=== PATIENT | female | born 1995 | race Caucasian/White ===

== ENCOUNTER 2019-06-05 12:59 | Inpatient (IN) | payer OTHER, SELFPAY ==
[2019-06-05 14:31] LABS: Add Manual Diff / Slide Review NO; Basophils Absolute Auto 0 /uL (0-100); Basophils Percent Auto 0.4 % (0-2); Eosinophils Absolute Auto 0 /uL (0-450); Eosinophils Percent Auto 0.2 % (2-4); Hematocrit 39.7 % (36-46); Lymphocytes Absolute Auto 2000 /uL (1100-4500); Lymphocytes Percent Auto 20.8 % (25-40); Mean Corpuscular HGB Conc 35.3 % (30-36); Mean Corpuscular Hemoglobin 29.7 PG (26-34); Mean Corpuscular Volume 84.1 fL (80-100); Monocytes Absolute Auto 600 /uL (0-900); Monocytes Percent Auto 6.6 % (3-14); Neutrophils Absolute Auto 6900 /uL (1500-7000); Platelet Count 316 X10^3/uL (150-400); Red Blood Cell Count 4.72 X10^6/uL (4.0-5.2); White Blood Cell Count 9.6 X10^3/uL (4.5-11.0)
[2019-06-05 14:44] LABS: Aspartate Aminotransferase 123 IU/L (14-36); Blood Urea Nitrogen 14 mg/dL (7-17); Estimated Glomerular Filt Rate > 60.0 mL/min (>60); Uric Acid 6.8 mg/dL (2.5-6.2)
[2019-06-05 15:03] LABS: RBC Urine None Seen (0-5/HPF)
[2019-06-05 15:05] LABS: Appearance Urine UA SL CLOUDY; Bilirubin Urine UA NEGATIVE (NEGATIVE); Color Urine UA YELLOW; Glucose Urine UA NEGATIVE (Negative); Ketones Urine UA NEGATIVE (NEGATIVE); Leukocyte Esterase Urine UA 1+ (NEGATIVE); Nitrite Urine UA NEGATIVE (Negative); Occult Blood Urine UA NEGATIVE (Negative); Protein Urine UA TRACE (Negative); Specific Gravity Urine UA <=1.005 (1.000-1.035); Urobilinogen Urine UA 0.2 E.U./dL (0.2); pH Urine UA 6.5 (4.5-8.0)
[2019-06-05 15:17] LABS: Squamous Epithelial Cell Urine 1-5 /HPF (0-5/HPF); WBC Urine 5-10/HPF (0-5/HPF)
[2019-06-05 15:18] LABS: Amorphous Sediment Urine 1+; Bacteria Urine Many (>30); Culture Indicated Urine Specimen Cultured; Mucus Urine 1+ (Negative)
[2019-06-05 15:24] LABS: Creatinine Urine Random 101.8 mg/dL; Protein (Total) Urine Random 19 mg/dL (0-12); Protein Creatinine Ratio Urine 0.18 GRAM/24H
--- NOTE | 2019-06-05 16:01 | PM.OBHP.1 ---
OB HPI Date/Time Date of admission: 06/05/19 Date Patient Seen: 06/05/19 Time Patient Seen: 14:45 History of Present Condition Chief complaint: Observation : 1 Para: 0 Estimated Date of Delivery: 06/26/19 Estimated Gestational Age (weeks): 37 Narrative: This patient is a 24-year-old at 37 weeks 0 days admitted for induction of labor for gestational hypertension. The patient presented to clinic today for a new OB visit to transfer care, and was found to have a blood pressure of 154/100. Patient reported otherwise feeling well, with no obstetrical complaints and no symptoms such as headache, visual changes, chest pain, right upper quadrant pain, or increased swelling. [place], and that ?they were watching it.? The patient has a complicated by GDM A1, which was well controlled per her log that she brought with her today. The patient reports that she had a growth ultrasound 1 week ago, with an EFW of 5 lb 10 oz. The patient denies any other complications. The patient reports that she has an uncomplicated medical history, explicitly denying any history of hypertension or diabetes. She denies any contributory surgical, gynecologic, or family history, and denies any family history on the FOB's side of the family. Indications Indication for induction OB: medical complication History of Present care: good care Dating criteria: other (Incomplete records) Ultrasounds: normal mid trimester US (Per patient) Obstetrical complications: gestational diabetes and gestational hypertension Evaluation Evaluation Baseline heart rate: 125 monitor accelerations: Present monitor decelerations: Absent Uterine Contraction Intensity: Mild Category of Tracing: I Cervical dilation (cm): 1 Cervical effacement (%): 50 station: -3 Laboratory results: Laboratory Tests 06/05/19 06/05/19 06/05/19 14:07 14:07 15:01 WBC 9.6 RBC 4.72 Hgb 14.0 Hct 39.7 MCV 84.1 MCH 29.7 MCHC 35.3 RDW 14.0 Plt Count 316 Neut % (Auto) 72.0 Lymph % (Auto) 20.8 L [place] % (Auto) 6.6 Eos % (Auto) 0.2 L Baso % (Auto) 0.4 Neut # (Auto) 6900 Lymph # (Auto) 2000 [place] # (Auto) 600 Eos # (Auto) 0 Baso # (Auto) 0 BUN 14 Creatinine 0.70 Estimated GFR > 60.0 BUN/Creatinine Ratio 20.0 Uric Acid 6.8 H AST 123 H Urine Color Yellow Urine Appearance Sl cloudy Urine pH 6.5 Ur Specific Alpha <=1.005 Urine Protein Trace H Urine Glucose (UA) Negative Urine Ketones Negative Urine Occult Blood Negative Urine Nitrate Negative Urine Bilirubin Negative Urine Urobilinogen 0.2 Ur Leukocyte Esterase 1+ H Urine RBC None seen Urine WBC 5-10/hpf H Ur Squamous Epith Cells 1-5 /hpf Amorphous Sediment 1+ Urine Bacteria Many (>30) H Urine Mucus 1+ H Ur Culture Indicated? Specimen cultured U Random Total Protein Urine Creatinine Protein/Creatinin Ratio 06/05/19 15:01 WBC RBC Hgb Hct MCV MCH MCHC RDW Plt Count Neut % (Auto) Lymph % (Auto) [place] % (Auto) Eos % (Auto) Baso % (Auto) Neut # (Auto) Lymph # (Auto) [place] # (Auto) Eos # (Auto) Baso # (Auto) BUN Creatinine Estimated GFR BUN/Creatinine Ratio Uric Acid AST Urine Color Urine Appearance Urine pH Ur Specific Alpha Urine Protein Urine Glucose (UA) Urine Ketones Urine Occult Blood Urine Nitrate Urine Bilirubin Urine Urobilinogen Ur Leukocyte Esterase Urine RBC Urine WBC Ur Squamous Epith Cells Amorphous Sediment Urine Bacteria Urine Mucus Ur Culture Indicated? U Random Total Protein 19 H Urine Creatinine 101.8 Protein/Creatinin Ratio 0.18 PFSH Medical History Gestational diabetes mellitus (GDM) affecting first (Acute) Surgical History History of dental surgery (Acute ~2004) Family History Grandfather Cancer Grandmother Cervical cancer Lung cancer Grandfather Lung cancer Social History marital status: household members: spouse pets and animals: Yes (cat and aware) occupational status: unemployed current occupational exposures/hazards: No Smoking Status: Never smoker second hand exposure: No substance use type: does not use Meds Home Medications and Allergies Home Medications Medication Instructions Recorded Confirmed Type prenat.vits,taiwo,sau-ziyz-iefoa 1 tab PO DAILY 06/02/19 06/02/19 History Allergies Allergy/AdvReac Type Severity Reaction Status Date / Time No Known Drug Allergies Allergy Verified 05/28/19 11:07 Review of Systems Constitutional Constitutional: Reports system reviewed and no additional complaints, except as documented Cardiovascular Cardiovascular: Reports system reviewed; no additional complaints, except as documented Respiratory Respiratory: Reports system reviewed and no additional complaints, except as documented Gastrointestinal Gastrointestinal: Reports system reviewed and no additional complaints, except as documented Genitourinary Genitourinary: Reports system reviewed and no additional complaints, except as documented Musculoskeletal Musculoskeletal: Reports system reviewed; no additional complaints, except as documented Neurologic Neurologic: Reports system reviewed and no additional complaints, except as documented Endocrine Endocrine: Reports system reviewed and no additional complaints, except as documented Exam Vital Signs (past 8 hours): 140-155/90-105, HR 100s, afebrile Const General: cooperative, healthy appearing and comfortable Resp Effort & Inspection: normal respiratory effort Auscultation: clear to auscultation bilaterally Cardio Rate: regular rate Rhythm: regular rhythm GI Palpation: soft and No tender External Female Exam: external appearance normal Extrem Right lower extremity: edema Details: 1+ Left lower extremity: edema Details: 1+ Objective Labs Result Diagrams: 06/05/19 14:07 06/05/19 14:07 Labs: Laboratory Results - last 24 hr 06/05/19 06/05/19 06/05/19 14:07 14:07 15:01 WBC 9.6 RBC 4.72 Hgb 14.0 Hct 39.7 MCV 84.1 MCH 29.7 MCHC 35.3 RDW 14.0 Plt Count 316 Neut % (Auto) 72.0 Lymph % (Auto) 20.8 L [place] % (Auto) 6.6 Eos % (Auto) 0.2 L Baso % (Auto) 0.4 Neut # (Auto) 6900 Lymph # (Auto) 2000 [place] # (Auto) 600 Eos # (Auto) 0 Baso # (Auto) 0 BUN 14 Creatinine 0.70 Estimated GFR > 60.0 BUN/Creatinine Ratio 20.0 Uric Acid 6.8 H AST 123 H Urine Color Yellow Urine Appearance Sl cloudy Urine pH 6.5 Ur Specific Alpha <=1.005 Urine Protein Trace H Urine Glucose (UA) Negative Urine Ketones Negative Urine Occult Blood Negative Urine Nitrate Negative Urine Bilirubin Negative Urine Urobilinogen 0.2 Ur Leukocyte Esterase 1+ H Urine RBC None seen Urine WBC 5-10/hpf H Ur Squamous Epith Cells 1-5 /hpf Amorphous Sediment 1+ Urine Bacteria Many (>30) H Urine Mucus 1+ H Ur Culture Indicated? Specimen cultured U Random Total Protein Urine Creatinine Protein/Creatinin Ratio 06/05/19 15:01 WBC RBC Hgb Hct MCV MCH MCHC RDW Plt Count Neut % (Auto) Lymph % (Auto) [place] % (Auto) Eos % (Auto) Baso % (Auto) Neut # (Auto) Lymph # (Auto) [place] # (Auto) Eos # (Auto) Baso # (Auto) BUN Creatinine Estimated GFR BUN/Creatinine Ratio Uric Acid AST Urine Color Urine Appearance Urine pH Ur Specific Alpha Urine Protein Urine Glucose (UA) Urine Ketones Urine Occult Blood Urine Nitrate Urine Bilirubin Urine Urobilinogen Ur Leukocyte Esterase Urine RBC Urine WBC Ur Squamous Epith Cells Amorphous Sediment Urine Bacteria Urine Mucus Ur Culture Indicated? U Random Total Protein 19 H Urine Creatinine 101.8 Protein/Creatinin Ratio 0.18 Assessment and Plan Assessment and Plan Assessment and Plan narrative: This patient is a 24-year-old at 37 weeks, presenting with a presentation consistent with gestational hypertension. Per ACOG guidelines, she will be induced for this. She has an unfavorable cervix and will be induced with vaginal Cytotec, with Pitocin to follow. Discussed with patient and spouse -vital signs q.1 hour -fingersticks q.4 hours while awake in till active labor, when they will become 1 hour -Hep-Lock IV -induction with vaginal Cytotec per protocol -continuous monitoring and toco -notify MD with any blood pressures over 160 systolic or 110 diastolic, category 2 tracing, or symptoms of preeclampsia.
[2019-06-05] MEDS: NIFEdipine 10 MG CAPSULE PO ×2 (17:17→23:39)
--- NOTE | 2019-06-05 17:52 | PM.OBPNLAB ---
Date/Time Date Patient Seen: 06/05/19 Time Patient Seen: 16:45 Pelvic Exam Dilation (cm): 1 Effacement (%): 50 station: -3 Comments: Patient with sustained severe range blood pressures with systolics over 160. Patient remained asymptomatic, has no IV obtained, 10 mg of immediate release p.o. nifedipine administered. Blood pressures resolved to 130-75 after 20 minutes. Will continue to closely monitor Q 15 minutes. S patient now risen for preeclampsia with severe features due to is seen severe blood pressures, patient will start magnesium therapy. Contractions Contraction intensity: Mild Status status: Category l Heart Rate Baseline: 125 Monitor Decelerations: Absent Monitor Variability: Moderate Assessment and Plan Assessment: induction ongoing
[2019-06-05] MEDS: LACTATED RINGERS 1,000 ML 100 ML IV (18:00)
[2019-06-05 18:07] LABS: Add Manual Diff / Slide Review NO; Basophils Absolute Auto 100 /uL (0-100); Basophils Percent Auto 0.6 % (0-2); Eosinophils Absolute Auto 0 /uL (0-450); Eosinophils Percent Auto 0.2 % (2-4); Hematocrit 39.6 % (36-46); Hemoglobin 13.7 g/dL (12.0-16.0); Lymphocytes Absolute Auto 2600 /uL (1100-4500); Lymphocytes Percent Auto 22.4 % (25-40); Mean Corpuscular HGB Conc 34.6 % (30-36); Mean Corpuscular Volume 83.9 fL (80-100); Monocytes Absolute Auto 600 /uL (0-900); Monocytes Percent Auto 5.3 % (3-14); Neutrophils Absolute Auto 8400 /uL (1500-7000); Neutrophils Percent Auto 71.5 % (50-75); Platelet Count 317 X10^3/uL (150-400); Red Blood Cell Count 4.72 X10^6/uL (4.0-5.2); Red Cell Distribution Width 13.9 % (11.6-14.8); White Blood Cell Count 11.8 X10^3/uL (4.5-11.0)
[2019-06-05] MEDS: MAGNESIUM SULFATE 4 GM/100 ML PIGGYBACK IV (19:16)
[2019-06-05] MEDS: miSOPROStoL 25 MCG TABLET VAG ×2 (19:39→23:39)
[2019-06-05] MEDS: MAGNESIUM SULFATE 20 GM/500 ML IV.SOLN IV (19:43)
[2019-06-05 21:18] VITALS: BP 154/95
[2019-06-05] MEDS: ZOLPIDEM 5 MG TABLET PO (23:39)
[2019-06-06] MEDS: LACTATED RINGERS 1,000 ML 100 ML IV ×3 (03:53→23:22)
[2019-06-06] MEDS: MAGNESIUM SULFATE 20 GM/500 ML IV.SOLN IV ×2 (06:35→16:52)
--- NOTE | 2019-06-06 07:43 | PM.OBPNLAB ---
Date/Time Date Patient Seen: 06/06/19 Time Patient Seen: 07:30 Pain Control Pain control: tolerating well Comments: Patient slept little overnight and says her head feels like I haven't slept but denies headache. Also denies abdominal pain, nausea or LE edema. Overnight she required nifedipine for persistent systolic BP>160 but pressures since have been reasonable. Received 2 of 3 doses of Cytotec overnight. Was having contractions which have ceased. Pelvic Exam Dilation (cm): 1 Effacement (%): 50 station: -3 Amniotic membrane status: Intact Contractions Monitor mode: External Contraction intensity: Mild Status status: Category l Heart Rate Baseline: 130 Monitor Accelerations: Present Monitor Decelerations: Absent Assessment and Plan Assessment: induction ongoing Plan: continuous present management Comments: 24 year old at 37+1 weeks with GDMA1 and pre-eclampsia with severe features now on magnesium. Blood pressures well controlled with prn nifedipine. Received 2 doses of Cytotec overnight. Prieto score of 6 this morning. Begin pitocin per protocol. Continue magnesium, BP monitoring and neuro checks.
[2019-06-06 08:05] LABS: Add Manual Diff / Slide Review NO; Basophils Absolute Auto 100 /uL (0-100); Basophils Percent Auto 0.5 % (0-2); Eosinophils Absolute Auto 0 /uL (0-450); Eosinophils Percent Auto 0.4 % (2-4); Hematocrit 40.1 % (36-46); Hemoglobin 14.2 g/dL (12.0-16.0); Lymphocytes Absolute Auto 3000 /uL (1100-4500); Lymphocytes Percent Auto 24.4 % (25-40); Mean Corpuscular HGB Conc 35.6 % (30-36); Mean Corpuscular Hemoglobin 29.5 PG (26-34); Mean Corpuscular Volume 83.1 fL (80-100); Monocytes Absolute Auto 700 /uL (0-900); Monocytes Percent Auto 5.9 % (3-14); Neutrophils Absolute Auto 8500 /uL (1500-7000); Neutrophils Percent Auto 68.8 % (50-75); Platelet Count 348 X10^3/uL (150-400); Red Blood Cell Count 4.82 X10^6/uL (4.0-5.2); White Blood Cell Count 12.4 X10^3/uL (4.5-11.0)
[2019-06-06 08:14] LABS: Alanine Aminotransferase 274 IU/L (<35); Albumin 4.1 g/dL (3.5-5.0); Albumin Globulin Ratio 1.2 (1.0-2.8); Alkaline Phosphatase 237 U/L (38-126); Aspartate Aminotransferase 163 IU/L (14-36); Bilirubin Total 1.5 mg/dL (0.2-1.3); Bilirubin Unconjugated 1.1 mg/dL (0.0-1.1); Globulin 3.4 g/dL (1.7-4.1); HEMOLYSIS < 15 (0-50); Total Protein 7.5 g/dL (6.3-8.2); Uric Acid 7.9 mg/dL (2.5-6.2)
[2019-06-06] MEDS: OXYTOCIN PREMIX 30 UNIT/500 ML PLAST..BAG IV (08:40)
[2019-06-06] MEDS: NIFEdipine 10 MG CAPSULE PO ×2 (09:08→20:54)
[2019-06-06 09:09] LABS: BUN Creatinine Ratio 14.3 (6-22); Blood Urea Nitrogen 10 mg/dL (7-17); Calcium 8.2 mg/dL (8.4-10.2); Carbon Dioxide 17 mmol/L (22-32); Chloride 105 mmol/L (98-107); Estimated Glomerular Filt Rate > 60.0 mL/min (>60); Glucose 87 mg/dL (70-100); HEMOLYSIS < 15 (0-50); Potassium 3.9 mmol/L (3.4-5.1); Sodium 136 mmol/L (137-145)
--- NOTE | 2019-06-06 11:31 | PM.OBPNLAB ---
Date/Time Date Patient Seen: 06/06/19 Time Patient Seen: 11:40 Pain Control Pain control: tolerating well Comments: No complaints other than feeling tired. Denies WARD, vision changes, RUQ pain or edema. Feeling contractions more, mostly crampy. Contractions Monitor mode: External Pitocin rate (mU/min): 9 Contraction frequency (min): 5 Contraction pattern: Regular Contraction intensity: Mild Status status: Category l Heart Rate Baseline: 130 Monitor Accelerations: Present Monitor Decelerations: Absent Monitor Variability: Moderate Assessment and Plan Assessment: induction ongoing Plan: continuous present management Comments: Increase pitocin per protocol. BP <160/110 and patient asymptomatic. Continue mag per protocol with neuro checks. Reflexes present on exam and good UOP. Repeat last this afternoon.
[2019-06-06 15:03] LABS: Add Manual Diff / Slide Review NO; Basophils Absolute Auto 100 /uL (0-100); Basophils Percent Auto 0.6 % (0-2); Eosinophils Absolute Auto 0 /uL (0-450); Eosinophils Percent Auto 0.1 % (2-4); Hematocrit 38.8 % (36-46); Hemoglobin 13.6 g/dL (12.0-16.0); Lymphocytes Absolute Auto 1700 /uL (1100-4500); Lymphocytes Percent Auto 14.5 % (25-40); Mean Corpuscular HGB Conc 35.1 % (30-36); Mean Corpuscular Hemoglobin 29.1 PG (26-34); Mean Corpuscular Volume 82.8 fL (80-100); Monocytes Absolute Auto 600 /uL (0-900); Neutrophils Absolute Auto 9100 /uL (1500-7000); Neutrophils Percent Auto 79.8 % (50-75); Platelet Count 335 X10^3/uL (150-400); Red Blood Cell Count 4.69 X10^6/uL (4.0-5.2); Red Cell Distribution Width 13.9 % (11.6-14.8); White Blood Cell Count 11.5 X10^3/uL (4.5-11.0)
[2019-06-06 15:12] LABS: Alanine Aminotransferase 262 IU/L (<35); Albumin Globulin Ratio 1.2 (1.0-2.8); Alkaline Phosphatase 251 U/L (38-126); Aspartate Aminotransferase 153 IU/L (14-36); Bilirubin Total 1.2 mg/dL (0.2-1.3); Blood Urea Nitrogen 9 mg/dL (7-17); Carbon Dioxide 20 mmol/L (22-32); Chloride 104 mmol/L (98-107); Estimated Glomerular Filt Rate > 60.0 mL/min (>60); Globulin 3.3 g/dL (1.7-4.1); Glucose 100 mg/dL (70-100); HEMOLYSIS < 15 (0-50); Potassium 4.2 mmol/L (3.4-5.1); Sodium 135 mmol/L (137-145); Total Protein 7.3 g/dL (6.3-8.2)
--- NOTE | 2019-06-06 16:16 | PM.OBPNLAB ---
Date/Time Date Patient Seen: 06/06/19 Time Patient Seen: 16:05 Pain Control Pain control: tolerating well Comments: Feeling crampy and contractions inconsistently. Denies WARD, vision changes, swelling or RUQ abdominal pain. Blood pressures have been <160<110. Pelvic Exam Dilation (cm): 3 Effacement (%): 75 station: -2 Amniotic membrane status: Ruptured (AROM clear fluid) Contractions Monitor mode: External Pitocin rate (mU/min): 18 Contraction frequency (min): 3 Contraction pattern: Regular Contraction intensity: Mild Status status: Category l Heart Rate Baseline: 120 Monitor Accelerations: Present Monitor Decelerations: Absent Monitor Variability: Moderate Assessment and Plan Assessment: induction ongoing Plan: continuous present management Comments: Blood pressures stable and not requiring nifedipine. No sign of magnesium toxicity. Patient asymptomatic. Labs stable, normal platelets, AST/ALT slightly improved though still abnormal. AROM with clear fluid. Continue pitocin per protocol. Epidural upon request.
[2019-06-06] MEDS: fentaNYL 100 MCG/2 ML INJ (19:25)
[2019-06-06] MEDS: FENT 2MCG/ML BUPIV 0.125% EPI 200 MCG/100 ML PLAST..BAG 13.5 MCG EPIDURAL (19:25)
--- NOTE | 2019-06-06 22:07 | P.PNOB_ITS ---
Date/Time Date Patient Seen: 06/06/19 Time Patient Seen: 21:30 Pain Control Pain control: tolerating well and epidural Comments: Feels cramping in lower abdomen. Denies WARD, vision changes, RUQ pain. Pelvic Exam Dilation (cm): 50 Effacement (%): 90 station: -1 Amniotic membrane status: Ruptured (AROM clear fluid) Contractions Monitor mode: External Pitocin rate (mU/min): 26 Contraction pattern: Regular Contraction intensity: Moderate Status status: Category l Heart Rate Baseline: 130 Monitor Accelerations: Present Monitor Decelerations: Absent Monitor Variability: Moderate Assessment and Plan Assessment: induction ongoing Comments: Unable to adequately monitor contractions on pitocin. Attempted IUPC placement with a moderate amount of blood upon insertion. IUPC removed and pitocin shut off. BP stable and FHT reassuring. Contacted Dr. Larsen, DEVELOPMENT TECHNOLOGIST for support and recommendations given the amount of bleeding. She will come in to evaluate.
[2019-06-07] MEDS: FENT 2MCG/ML BUPIV 0.125% EPI 200 MCG/100 ML PLAST..BAG 13.5 MCG EPIDURAL (01:48)
[2019-06-07] MEDS: NIFEdipine 10 MG CAPSULE PO (03:51)
--- NOTE | 2019-06-07 04:43 | PM.OBPNLAB ---
Date/Time Date Patient Seen: 06/07/19 Time Patient Seen: 04:15 Pain Control Comments: Patient complaining of pelvic pressure and the need to push. Rates pain as 10/10 and requests anesthesia. Pelvic Exam Dilation (cm): 9 Effacement (%): 100 station: 0 Amniotic membrane status: Ruptured Contractions Monitor mode: External Pitocin rate (mU/min): 19 Contraction frequency (min): 3 Contraction pattern: Regular Contraction intensity: Strong/Firm Intrauterine tone measurement: 150 Status status: Category l Heart Rate Baseline: 130 Monitor Accelerations: Present Monitor Decelerations: Absent Monitor Variability: Moderate Assessment and Plan Plan: continuous present management Comments: Anesthesia asked to bolus epidural. MVU range from 140-200 but patient has been making cervical change.
[2019-06-07 05:20] LABS: Add Manual Diff / Slide Review NO; Basophils Absolute Auto 100 /uL (0-100); Basophils Percent Auto 0.4 % (0-2); Eosinophils Absolute Auto 0 /uL (0-450); Hematocrit 35.6 % (36-46); Hemoglobin 12.5 g/dL (12.0-16.0); Lymphocytes Absolute Auto 1600 /uL (1100-4500); Lymphocytes Percent Auto 10.2 % (25-40); Mean Corpuscular Hemoglobin 29.3 PG (26-34); Mean Corpuscular Volume 83.9 fL (80-100); Monocytes Absolute Auto 800 /uL (0-900); Monocytes Percent Auto 5.1 % (3-14); Neutrophils Absolute Auto 13600 /uL (1500-7000); Neutrophils Percent Auto 84.3 % (50-75); Platelet Count 344 X10^3/uL (150-400); Red Blood Cell Count 4.25 X10^6/uL (4.0-5.2); Red Cell Distribution Width 14.3 % (11.6-14.8); White Blood Cell Count 16.2 X10^3/uL (4.5-11.0)
[2019-06-07 05:29] LABS: Magnesium 5.6 mg/dL (1.6-2.3)
[2019-06-07 05:31] LABS: Alanine Aminotransferase 275 IU/L (<35); Albumin 3.6 g/dL (3.5-5.0); Albumin Globulin Ratio 1.2 (1.0-2.8); Alkaline Phosphatase 220 U/L (38-126); Aspartate Aminotransferase 177 IU/L (14-36); BUN Creatinine Ratio 11.4 (6-22); Bilirubin Total 1.8 mg/dL (0.2-1.3); Blood Urea Nitrogen 8 mg/dL (7-17); Calcium 7.3 mg/dL (8.4-10.2); Carbon Dioxide 17 mmol/L (22-32); Chloride 105 mmol/L (98-107); Estimated Glomerular Filt Rate > 60.0 mL/min (>60); Glucose 108 mg/dL (70-100); HEMOLYSIS < 15 (0-50); Potassium 3.8 mmol/L (3.4-5.1); Sodium 135 mmol/L (137-145); Total Protein 6.6 g/dL (6.3-8.2)
[2019-06-07] MEDS: MAGNESIUM SULFATE 20 GM/500 ML IV.SOLN IV (07:18)
[2019-06-07] MEDS: LACTATED RINGERS 1,000 ML 100 ML IV (08:41)
[2019-06-07] MEDS: ONDANSETRON 4 MG/2 ML INJ IV (08:55)
--- NOTE | 2019-06-07 11:54 | PM.OBPRVD ---
 Events: Gestational Diabetes and Induced HTN Labor & Delivery Delivery date: 06/07/19 Intrapartal events: Severe Preeclampsia, Abnormal Presentation, Diabetes, Acceleration and Deceleration Cervical ripening method: per misoprostal protocol Induction method: per pitocin protocol Delivery augmentation: rupture of membranes Delivery monitor: external FHT and internal uterine Route of delivery: Episiotomy description: Right Mediolateral L&D Laceration Description: Perineal - 2nd Degree Delivery repair: vicryl Estimated blood loss (mL): 250 Anesthesia type: Epidural Narrative: This patient is a 24-year-old G1 now P1 001, who presented at 37 weeks 0 days 2 days ago for transfer of care from the [facility]. At the time of presentation, the patient reported a history of GDM A1, and that she had had elevated blood pressures for her 2 prior visits. In the office, her blood pressure was 154/100. She presented to Labor and delivery where she continued to have elevated blood pressures, had elevated liver function tests though on no other lab abnormalities, and eventually required immediate release nifedipine for control of sustained severe range blood pressures. She was started on magnesium and induced with vaginal Cytotec and Pitocin. She progressed to fully dilated, and was delivered of a healthy baby boy after a 3 hour 2nd stage. Loose nuchal cord was reduced at the perineum, and the delivery was notable for a compound right arm. An episiotomy was performed due to maternal exhaustion at the very end of the 2nd stage, to facilitate delivery. The delivery was otherwise obstetrically uncomplicated, and a second-degree episiotomy was repaired with 3 0 Vicryl in the usual fashion. The patient required intermittent dosing with p.o. nifedipine during her labor to control her blood pressures, and received her last dose during the 2nd stage. - postpatum BP 129/7, T 99.0, HR 140 [place] Baby 1: gender: Male Presentation: compound (Right arm) position: Left Occiput Transverse Placenta delivery description: Spontaneous cord vessel description: Nuchal Cord (Loose, x1) score (1 min): 7 score (5 min): 9 Narrative: weight 6#10 Plan for aftercare: - Magnesium therapy for 24 hours - q1 hr BPs - bedside commode vs. weldon catheter, pending evaluation of patient's toleration of magnesium sulfate - clear liquid diet for now, ADAT if no nausea with magnesium sulfate - Continue IV or IR antihypertensives for sustained severe range BPs. Notify provider immediately with BP >160 systolic, >110 diastolic, focal neurologic signs or symptoms, or other abnormal vital signs. - Avoid tylenol given elevated LFTs - Repeat CBC, CMP in AM - Routine delivery obstetric care
--- NOTE | 2019-06-07 18:10 | PM.OBPN.1 ---
Subjective - OB Subjective Patient comments: no complaints [place] baby status: doing well Narrative: This patient is a 24yo [id number] PPD#0 s/p after IOL for preeclampsia with severe features, now on 24 hrs pp Mg sulfate therapy and tolerating this well. Patient is diuresing and has downtrending BPs, requiring no further antihypertensives. Mg to continue until 11AM tomorrow. Date Patient Seen: 06/07/19 Time Patient Seen: 18:24 Interval history: Patient denies WARD, visual changes, abdominal pain, has ambulated, is diuresing, mild to moderate lochia. Exam Vital Signs (past 8 hours): most recent BPs: 120s/90s, HR 110s, T 36.9 Objective Labs Result Diagrams: 06/07/19 05:08 06/07/19 05:08 Labs: Laboratory Results - last 24 hr 06/06/19 06/07/19 06/07/19 23:30 05:08 05:08 WBC 16.2 H RBC 4.25 Hgb 12.5 Hct 35.6 L MCV 83.9 MCH 29.3 MCHC 35.0 RDW 14.3 Plt Count 344 Neut % (Auto) 84.3 H Lymph % (Auto) 10.2 L [place] % (Auto) 5.1 Eos % (Auto) 0.0 L Baso % (Auto) 0.4 Neut # (Auto) 69802 H Lymph # (Auto) 1600 [place] # (Auto) 800 Eos # (Auto) 0 Baso # (Auto) 100 Sodium 135 L Potassium 3.8 Chloride 105 Carbon Dioxide 17 L BUN 8 Creatinine 0.70 Estimated GFR > 60.0 BUN/Creatinine Ratio 11.4 Glucose 108 H Calcium 7.3 L Magnesium 7.0 H* Total Bilirubin 1.8 H AST 177 H ALT 275 H Alkaline Phosphatase 220 H Total Protein 6.6 Albumin 3.6 Globulin 3.0 Albumin/Globulin Ratio 1.2 06/07/19 05:08 WBC RBC Hgb Hct MCV MCH MCHC RDW Plt Count Neut % (Auto) Lymph % (Auto) [place] % (Auto) Eos % (Auto) Baso % (Auto) Neut # (Auto) Lymph # (Auto) [place] # (Auto) Eos # (Auto) Baso # (Auto) Sodium Potassium Chloride Carbon Dioxide BUN Creatinine Estimated GFR BUN/Creatinine Ratio Glucose Calcium Magnesium 5.6 H* Total Bilirubin AST ALT Alkaline Phosphatase Total Protein Albumin Globulin Albumin/Globulin Ratio Assessment & Plan Plan day: 0 Comments: Continue current management Time Spent With Patient Time: Total time spent is greater than 50% in coordination of care (as documented) at patient's floor/unit and/or counseling patient: Time with patient: less than 15 minutes
[2019-06-07] MEDS: KETOROLAC 30 MG/ML VIAL IV (19:26)
[2019-06-07 22:40] LABS: Magnesium 5.1 mg/dL (1.6-2.3)
[2019-06-07] MEDS: DOCUSATE 100 MG CAPSULE PO (22:52)
[2019-06-07] MEDS: LACTATED RINGERS 500 ML 21 ML IV (22:52)
[2019-06-08] MEDS: KETOROLAC 30 MG/ML VIAL IV ×3 (01:26→13:59)
[2019-06-08] MEDS: MAGNESIUM SULFATE 20 GM/500 ML IV.SOLN IV (03:25)
[2019-06-08 09:29] LABS: Alanine Aminotransferase 190 IU/L (<35); Albumin 3.1 g/dL (3.5-5.0); Albumin Globulin Ratio 1.1 (1.0-2.8); Alkaline Phosphatase 159 U/L (38-126); Aspartate Aminotransferase 121 IU/L (14-36); BUN Creatinine Ratio 15.7 (6-22); Bilirubin Total 0.8 mg/dL (0.2-1.3); Blood Urea Nitrogen 11 mg/dL (7-17); Calcium 7.1 mg/dL (8.4-10.2); Carbon Dioxide 24 mmol/L (22-32); Chloride 104 mmol/L (98-107); Estimated Glomerular Filt Rate > 60.0 mL/min (>60); Globulin 2.8 g/dL (1.7-4.1); Glucose 89 mg/dL (70-100); HEMOLYSIS < 15 (0-50); Potassium 3.7 mmol/L (3.4-5.1); Sodium 134 mmol/L (137-145); Total Protein 5.9 g/dL (6.3-8.2)
[2019-06-08 09:30] LABS: Aspartate Aminotransferase 125 IU/L (14-36); BUN Creatinine Ratio 17.1 (6-22); Blood Urea Nitrogen 12 mg/dL (7-17); Estimated Glomerular Filt Rate > 60.0 mL/min (>60); Uric Acid 8.3 mg/dL (2.5-6.2)
[2019-06-08] MEDS: DOCUSATE 100 MG CAPSULE PO ×2 (09:32→21:16)
--- NOTE | 2019-06-08 09:50 | PM.OBPN.1 ---
Subjective - OB Subjective Patient comments: no complaints [place] baby status: doing well [place] feeding status: exclusively breast feeding Date Patient Seen: 06/08/19 Time Patient Seen: 09:15 Interval history: Patient reports feeling well, denies WARD, visual changes, chest pain, abdominal pain, or any other complaints obstetrical or otherwise. Exam Vital Signs (past 8 hours): 130s-150/80s-90s, HR 80s, afebrile Const General: cooperative, healthy appearing and comfortable Orientation: alert, awake and oriented x3 Resp Effort & Inspection: normal respiratory effort Auscultation: clear to auscultation bilaterally Cardio Rate: regular rate Rhythm: regular rhythm GI Palpation: soft and No tender Other: Fundus firm, well below u Extrem Other: 1+ LE edema Objective Labs Result Diagrams: 06/08/19 08:49 06/08/19 08:19 Labs: Laboratory Results - last 24 hr 06/07/19 06/08/19 06/08/19 22:20 08:19 08:19 WBC RBC Hgb Hct MCV MCH MCHC RDW Plt Count Neut % (Auto) Lymph % (Auto) [facility] % (Auto) Eos % (Auto) Baso % (Auto) Neut # (Auto) Lymph # (Auto) [facility] # (Auto) Eos # (Auto) Baso # (Auto) Sodium 134 L Potassium 3.7 Chloride 104 Carbon Dioxide 24 BUN 11 12 Creatinine 0.70 0.70 Estimated GFR > 60.0 > 60.0 BUN/Creatinine Ratio 15.7 17.1 Glucose 89 Uric Acid 8.3 H Calcium 7.1 L Magnesium 5.1 H* Total Bilirubin 0.8 AST 121 H 125 H ALT 190 H Alkaline Phosphatase 159 H Total Protein 5.9 L Albumin 3.1 L Globulin 2.8 Albumin/Globulin Ratio 1.1 06/08/19 08:49 WBC 19.1 H RBC 3.71 L Hgb 11.0 L Hct 31.2 L MCV 84.2 MCH 29.6 MCHC 35.2 RDW 14.1 Plt Count 308 Neut % (Auto) 72.2 Lymph % (Auto) 20.[address] [facility] % (Auto) 7.0 Eos % (Auto) 0.2 L Baso % (Auto) 0.6 Neut # (Auto) 10458 H Lymph # (Auto) 38[address] [facility] # (Auto) 1300 H Eos # (Auto) 0 Baso # (Auto) 100 Sodium Potassium Chloride Carbon Dioxide BUN Creatinine Estimated GFR BUN/Creatinine Ratio Glucose Uric Acid Calcium Magnesium Total Bilirubin AST ALT Alkaline Phosphatase Total Protein Albumin Globulin Albumin/Globulin Ratio Assessment & Plan Plan day: 1 Comments: Patient to stop Mg at 11AM, may ambulate freely, have regular diet. Continue close monitoring of vitals q1 hr during day, q4 overnight. Otherwise routine pp care. Time Spent With Patient Time: Total time spent is greater than 50% in coordination of care (as documented) at patient's floor/unit and/or counseling patient: Time with patient: 15-24 minutes
[2019-06-08] MEDS: NIFEdipine 10 MG CAPSULE PO (21:16)
--- NOTE | 2019-06-09 08:11 | P.PNOB_ITS ---
Subjective - OB Subjective Patient comments: no complaints [place] baby status: doing well [place] feeding status: exclusively breast feeding Date Patient Seen: 06/09/19 Time Patient Seen: 08:00 Interval history: Patient reports feeling well, denies headache, visual changes, chest pain, abdominal pain. Voiding, ambulating without issue, passing flatus, mild to moderate vaginal bleeding. We discussed patient's elevated blood pressures overnight, that she would benefit from p.o. antihypertensives. Patient vocalized understanding. Additionally, patient has been noted to have fast to take out for most meals during rounds, and we discussed that preeclampsia increases her risk of cardiovascular disease and hypertension. We discussed lifestyle modifications such as diet and exercise. Exam Vital Signs (past 8 hours): 154/97, HR 90, RR 16, T 99.1F Const General: cooperative, healthy appearing and comfortable Nutritional Appearance: obese Orientation: alert, awake and oriented x3 Resp Effort & Inspection: normal respiratory effort Auscultation: clear to auscultation bilaterally Cardio Rate: regular rate Rhythm: regular rhythm GI Palpation: soft and No tender Other: fundus firm, well below u Other: perineal laceration repair inspection deferred due to ongoing peds assessment. Objective Labs Result Diagrams: 06/08/19 08:49 06/08/19 08:19 Labs: Laboratory Results - last 24 hr 06/08/19 06/08/19 06/08/19 08:19 08:19 08:19 WBC RBC Hgb Hct MCV MCH MCHC RDW Plt Count Neut % (Auto) Lymph % (Auto) [place] % (Auto) Eos % (Auto) Baso % (Auto) Neut # (Auto) Lymph # (Auto) [place] # (Auto) Eos # (Auto) Baso # (Auto) Sodium 134 L Potassium 3.7 Chloride 104 Carbon Dioxide 24 BUN 11 12 Creatinine 0.70 0.70 Estimated GFR > 60.0 > 60.0 BUN/Creatinine Ratio 15.7 17.1 Glucose 89 Uric Acid 8.3 H Calcium 7.1 L Magnesium 5.0 H* Total Bilirubin 0.8 AST 121 H 125 H ALT 190 H Alkaline Phosphatase 159 H Total Protein 5.9 L Albumin 3.1 L Globulin 2.8 Albumin/Globulin Ratio 1.1 06/08/19 08:49 WBC 19.1 H RBC 3.71 L Hgb 11.0 L Hct 31.2 L MCV 84.2 MCH 29.6 MCHC 35.2 RDW 14.1 Plt Count 308 Neut % (Auto) 72.2 Lymph % (Auto) 20.0 L [place] % (Auto) 7.0 Eos % (Auto) 0.2 L Baso % (Auto) 0.6 Neut # (Auto) 79279 H Lymph # (Auto) 3800 [place] # (Auto) 1300 H Eos # (Auto) 0 Baso # (Auto) 100 Sodium Potassium Chloride Carbon Dioxide BUN Creatinine Estimated GFR BUN/Creatinine Ratio Glucose Uric Acid Calcium Magnesium Total Bilirubin AST ALT Alkaline Phosphatase Total Protein Albumin Globulin Albumin/Globulin Ratio Assessment & Plan Plan day: 2 plan OB: routine care Time Spent With Patient Time: Total time spent is greater than 50% in coordination of care (as documented) at patient's floor/unit and/or counseling patient: Time with patient: less than 15 minutes
[2019-06-09] MEDS: NIFEdipine 30 MG TAB ER PO ×2 (09:54→13:44)
[2019-06-09] MEDS: IBUPROFEN 400 MG TABLET 800 MG PO (10:30)
[2019-06-09 17:04] LABS: Red Blood Cell Count 3.71 X10^6/uL (4.0-5.2); White Blood Cell Count 19.1 X10^3/uL (4.5-11.0)
[2019-06-09 17:05] LABS: Add Manual Diff / Slide Review NO; Basophils Absolute Auto 100 /uL (0-100); Basophils Percent Auto 0.6 % (0-2); Eosinophils Absolute Auto 0 /uL (0-450); Eosinophils Percent Auto 0.2 % (2-4); Hematocrit 31.2 % (36-46); Lymphocytes Absolute Auto 3800 /uL (1100-4500); Mean Corpuscular HGB Conc 35.2 % (30-36); Mean Corpuscular Hemoglobin 29.6 PG (26-34); Mean Corpuscular Volume 84.2 fL (80-100); Monocytes Absolute Auto 1300 /uL (0-900); Neutrophils Absolute Auto 13800 /uL (1500-7000); Neutrophils Percent Auto 72.2 % (50-75); Platelet Count 308 X10^3/uL (150-400); Red Cell Distribution Width 14.1 % (11.6-14.8)
[2019-06-09 18:00] VITALS: BP 149/103; PULSE 94
[2019-06-09] MEDS: LABETALOL 100 MG TABLET PO (18:00)
[2019-06-10] MEDS: IBUPROFEN 400 MG TABLET 800 MG PO ×2 (05:48→12:50)
[2019-06-10] MEDS: LABETALOL 100 MG TABLET PO (05:49)
[2019-06-10 07:53] LABS: Add Manual Diff / Slide Review NO; Basophils Absolute Auto 100 /uL (0-100); Basophils Percent Auto 0.5 % (0-2); Eosinophils Absolute Auto 300 /uL (0-450); Eosinophils Percent Auto 2.3 % (2-4); Hematocrit 28.9 % (36-46); Hemoglobin 9.9 g/dL (12.0-16.0); Lymphocytes Absolute Auto 3100 /uL (1100-4500); Lymphocytes Percent Auto 25.8 % (25-40); Mean Corpuscular HGB Conc 34.4 % (30-36); Mean Corpuscular Hemoglobin 29.3 PG (26-34); Monocytes Absolute Auto 700 /uL (0-900); Monocytes Percent Auto 5.7 % (3-14); Neutrophils Absolute Auto 7800 /uL (1500-7000); Neutrophils Percent Auto 65.7 % (50-75); Platelet Count 344 X10^3/uL (150-400); White Blood Cell Count 11.9 X10^3/uL (4.5-11.0)
[2019-06-10 08:13] LABS: Alanine Aminotransferase 261 IU/L (<35); Albumin 3.4 g/dL (3.5-5.0); Albumin Globulin Ratio 1.2 (1.0-2.8); Alkaline Phosphatase 170 U/L (38-126); Aspartate Aminotransferase 201 IU/L (14-36); BUN Creatinine Ratio 16.7 (6-22); Bilirubin Total 0.9 mg/dL (0.2-1.3); Blood Urea Nitrogen 10 mg/dL (7-17); Calcium 8.6 mg/dL (8.4-10.2); Carbon Dioxide 27 mmol/L (22-32); Chloride 102 mmol/L (98-107); Estimated Glomerular Filt Rate > 60.0 mL/min (>60); Globulin 2.8 g/dL (1.7-4.1); Glucose 89 mg/dL (70-100); HEMOLYSIS < 15 (0-50); Potassium 3.5 mmol/L (3.4-5.1); Sodium 137 mmol/L (137-145); Total Protein 6.2 g/dL (6.3-8.2)
[2019-06-10] MEDS: NIFEdipine 30 MG TAB ER 60 MG PO (09:25)
[2019-06-10] MEDS: DOCUSATE 100 MG CAPSULE PO (09:25)
--- NOTE | 2019-06-10 13:01 | PM.DS.1 ---
History of Present Illness History of Present Illness Chief complaint: Observation Narrative: Patient reports feeling well, denies headache, visual changes, chest pain, abdominal pain. Voiding, ambulating without issue, passing flatus, mild to moderate vaginal bleeding. We discussed patient's elevated blood pressures overnight, that she would benefit from p.o. antihypertensives. Patient vocalized understanding. Additionally, patient has been noted to have fast to take out for most meals during rounds, and we discussed that preeclampsia increases her risk of cardiovascular disease and hypertension. We discussed lifestyle modifications such as diet and exercise. Discharge Providers Provider Date of admission: 06/05/19 12:59 Discharge Date: 06/10/19 Primary care physician: Randy Sunshine MD Consults: 06/08/19 11:51 Consult to Weatherization Coordinator Routine Comment: Discharge provider: Kirstie Ruff MD Summary Hospital Course Discharge Diagnosis: , preeclampsia with severe features Hospital Course: This patient presented to clinic at 37+0 for transfer of care with a history of GDMA1, and was found to meet criteria for preeclampsia with severe features. She was treated with magnesium sulfate and induced with vaginal cytotec and pitocin, and delivered of a healthy baby boy without complication. Her blood pressures required intermittent intrapartum treatment per protocol, and she was started on PO antihypertensives as needed for blood pressure control. She developed blues in the hospital, and was discharged with close follow up of both blood pressure and mental health as an outpatient. Status at Discharge Cognitive/behavioral status at discharge: oriented Overall status at discharge: patient is progressing back to baseline Time Spent with Patient Time spent: Greater than 30 minutes Exam Vital Signs (past 8 hours): See exam from day of discharge progress note Objective Labs Result Diagrams: 06/10/19 07:32 06/10/19 07:32 Labs: Laboratory Results - last 24 hr 06/08/19 06/08/19 06/10/19 08:19 08:49 07:32 WBC 19.1 H Cancelled 11.9 H RBC 3.71 L Cancelled 3.40 L Hgb 11.0 L Cancelled 9.9 L Hct 31.2 L Cancelled 28.9 L MCV 84.2 Cancelled 85.0 MCH 29.6 Cancelled 29.3 MCHC 35.2 Cancelled 34.4 RDW 14.1 Cancelled 14.0 Plt Count 308 Cancelled 344 Neut % (Auto) 72.2 Cancelled 65.7 Lymph % (Auto) 20.0 L Cancelled 25.8 [place] % (Auto) 7.0 Cancelled 5.7 Eos % (Auto) 0.2 L Cancelled 2.3 Baso % (Auto) 0.6 Cancelled 0.5 Neut # (Auto) 97218 H Cancelled 7800 H Lymph # (Auto) 3800 Cancelled 3100 [place] # (Auto) 1300 H Cancelled 700 Eos # (Auto) 0 Cancelled 300 Baso # (Auto) 100 Cancelled 100 Sodium Potassium Chloride Carbon Dioxide BUN Creatinine Estimated GFR BUN/Creatinine Ratio Glucose Calcium Total Bilirubin AST ALT Alkaline Phosphatase Total Protein Albumin Globulin Albumin/Globulin Ratio 06/10/19 07:32 WBC RBC Hgb Hct MCV MCH MCHC RDW Plt Count Neut % (Auto) Lymph % (Auto) [place] % (Auto) Eos % (Auto) Baso % (Auto) Neut # (Auto) Lymph # (Auto) [place] # (Auto) Eos # (Auto) Baso # (Auto) Sodium 137 Potassium 3.5 Chloride 102 Carbon Dioxide 27 BUN 10 Creatinine 0.60 Estimated GFR > 60.0 BUN/Creatinine Ratio 16.7 Glucose 89 Calcium 8.6 Total Bilirubin 0.9 AST 201 H ALT 261 H Alkaline Phosphatase 170 H Total Protein 6.2 L Albumin 3.4 L Globulin 2.8 Albumin/Globulin Ratio 1.2 Discharge Plan Discharge Plan Patient Disposition: Home Discharge orders & Medications Prescriptions: New labetalol 100 mg tablet 100 mg PO BID Qty: 60 RF: 1 nifedipine 60 mg tablet extended release 60 mg PO DAILY Qty: 30 RF: 0 Continued prenat.vits,taiwo,acq-esvv-wolks Tablet 1 tab PO DAILY RF: 0 Follow up/Referrals: Randy Sunshine MD [Primary Care Provider] - Kirstie Ruff MD [Physician] - 1 Day (please f/u w/Dr. Ruff this Saturday, Jun 12 for a BP check at 3pm and again on Jul 08, 2019 at 11:30am) Diet/Activity/Treatments Diet: Regular and Low-sodium Activity: Nothing in the vagina for 6 weeks. If you develop increasing bleeding, fevers, chills, nausea, vomiting, headaches, or any other complaints, call or come to the ED. Visit Report/Discharge Packet Instructions: Pre-eclampsia, DI for Labor and Delivery, Vaginal Stand Alone Forms: Discharge: Care Discharge Data Primary Care Provider: Randy Sunshine Discharges patient from system. Discharge Date/Time: 06/10/19 15:19
--- NOTE | 2019-06-10 13:01 | PM.OBPN.1 ---
Subjective - OB Subjective Patient comments: pain well controlled, tolerating diet and flatus present baby status: other (under bili lights, otherwise doing well) feeding status: breast and bottle feeding Narrative: This patient is a 24-year-old now para 1 day 3 status post a vaginal delivery after induction of labor for preeclampsia with severe features. The patient's blood pressures have proven difficult to control, but are doing better on the current medication regimen. The patient is otherwise recovering from her preeclampsia well, diuresing, with significantly decreased edema and no symptoms. The patient is struggling with depression symptoms, though denies thoughts of self-harm of hurting her baby. Date Patient Seen: 06/10/19 Time Patient Seen: 12:30 Exam Vital Signs (past 8 hours): 124-149/81-93, HR 88 Const General: cooperative, healthy appearing, comfortable and in distress (tearful about baby under bili lights) Nutritional Appearance: overweight Resp Effort & Inspection: normal respiratory effort Auscultation: clear to auscultation bilaterally Cardio Rate: regular rate Rhythm: regular rhythm GI Palpation: soft and No tender Other: fundus firm, well below u Other: Laceration repair intact, no erythema, swelling, drainage Objective Labs Result Diagrams: 06/10/19 07:32 06/10/19 07:32 Labs: Laboratory Results - last 24 hr 06/08/19 06/08/19 06/10/19 08:19 08:49 07:32 WBC 19.1 H Cancelled 11.9 H RBC 3.71 L Cancelled 3.40 L Hgb 11.0 L Cancelled 9.9 L Hct 31.2 L Cancelled 28.9 L MCV 84.2 Cancelled 85.0 MCH 29.6 Cancelled 29.3 MCHC 35.2 Cancelled 34.4 RDW 14.1 Cancelled 14.0 Plt Count 308 Cancelled 344 Neut % (Auto) 72.2 Cancelled 65.7 Lymph % (Auto) 20.0 L Cancelled 25.8 [place] % (Auto) 7.0 Cancelled 5.7 Eos % (Auto) 0.2 L Cancelled 2.3 Baso % (Auto) 0.6 Cancelled 0.5 Neut # (Auto) 03831 H Cancelled 7800 H Lymph # (Auto) 3800 Cancelled 3100 [place] # (Auto) 1300 H Cancelled 700 Eos # (Auto) 0 Cancelled 300 Baso # (Auto) 100 Cancelled 100 Sodium Potassium Chloride Carbon Dioxide BUN Creatinine Estimated GFR BUN/Creatinine Ratio Glucose Calcium Total Bilirubin AST ALT Alkaline Phosphatase Total Protein Albumin Globulin Albumin/Globulin Ratio 06/10/19 07:32 WBC RBC Hgb Hct MCV MCH MCHC RDW Plt Count Neut % (Auto) Lymph % (Auto) [place] % (Auto) Eos % (Auto) Baso % (Auto) Neut # (Auto) Lymph # (Auto) [place] # (Auto) Eos # (Auto) Baso # (Auto) Sodium 137 Potassium 3.5 Chloride 102 Carbon Dioxide 27 BUN 10 Creatinine 0.60 Estimated GFR > 60.0 BUN/Creatinine Ratio 16.7 Glucose 89 Calcium 8.6 Total Bilirubin 0.9 AST 201 H ALT 261 H Alkaline Phosphatase 170 H Total Protein 6.2 L Albumin 3.4 L Globulin 2.8 Albumin/Globulin Ratio 1.2 Assessment & Plan Plan day: 3 plan OB: other Comments: This patient's blood pressure is now well controlled on 60 of extended release nifedipine daily and 100 mg of p.o. labetalol b.i.d. we discussed signs and symptoms of hypotension, should her preeclamptic process resolve and her medications need to be adjusted. The patient will call the clinic if the symptoms occur and present for urgent evaluation. She will be for blood pressure check in clinic in 2 days, and we discussed precautions that should prompt her to call or return. The patient has symptoms of baby blues though no thoughts of self-harm or hurting the baby. We discussed coping mechanisms, and the patient has been referred to Behavioral Health for urgent outpatient follow-up. The patient vocalized understanding of this, and will call if her symptoms worsen. Time Spent With Patient Time: Total time spent is greater than 50% in coordination of care (as documented) at patient's floor/unit and/or counseling patient: Time with patient: 25 - 35 minutes
== END 2019-06-10 15:19 | disposition home or self-care (01) | DRG 807 ==
PROVIDERS: Family Medicine; Admitting Provider Obstetrics & Gynecology; PCP General Practice; Visit Provider Obstetrics & Gynecology
DX: O13.4 Gestational [pregnancy-induced] hypertension without significant proteinuria, complicating childbirth (principal); O24.429 Gestational diabetes mellitus in childbirth, unspecified control; O90.6 Postpartum mood disturbance; Z37.0 Single live birth; Z3A.37 37 weeks gestation of pregnancy; O14.14 Severe pre-eclampsia complicating childbirth; O70.1 Second degree perineal laceration during delivery
CPT/HCPCS: 01967; 36415; 59050; 59410; 80048; 80053; 80076; 81001; 82570; 83735; 84156; 84450; 84550; 85025; 86850; 86900; 86901; 87086; G0379; J1885; J2405; J2590; J3010; J3475

== ENCOUNTER → 2019-06-05 13:03 | Outpatient (CLI) | payer OTHER, SELFPAY ==
[2019-06-06 10:28] LABS: Strep Grp B PCR NEG for Grp B Strep
== END ==
PROVIDERS: PCP General Practice; Visit Provider Obstetrics & Gynecology
DX: Z34.90 Encounter for supervision of normal pregnancy, unspecified, unspecified trimester (principal)
CPT/HCPCS: 87653

== ENCOUNTER 2019-07-27 21:04 | Emergency (ER) | payer OTHER, SELFPAY ==
--- NOTE | 2019-07-27 21:14 | DI.RAD.S_ITS ---
PROCEDURE: XR CHEST 1V INDICATIONS: chest pain TECHNIQUE: One view of the chest was acquired. COMPARISON: None. FINDINGS: Surgical changes and devices: None. Lungs and pleura: Lungs are clear. No pleural effusions or pneumothorax. Mediastinum: Mediastinal contours appear normal. Heart size is normal. Bones and chest wall: No suspicious bony lesions. Overlying soft tissues appear unremarkable. IMPRESSION: Portable chest within normal limits. Dictated by: Sunny Arce M.D. on 07/27/2019 at 21:47 Approved by: Sunny Arce M.D. on 07/27/2019 at 21:48
[2019-07-27 21:15] VITALS: BP 130/73; PULSE 125; PULSE 134; RESP 20; RESP 29; TEMP 37.1; O2SAT 99; BMI 30.4
--- NOTE | 2019-07-27 21:18 | ED.CHESTPAIN ---
HPI - Chest Pain General Chief Complaint: Chest Pain Stated Complaint: chest pain Time Seen by Provider: 07/27/19 21:18 Source: patient and family Mode of arrival: Ambulatory Limitations: no limitations History of Present Illness HPI narrative: The patient presents with chest pain for 3 days. The pain is central sternal does not radiate. She has no associated dyspnea, weakness or dizziness. She has minimal, occasional cough. She has no hemoptysis. She is 7 weeks . She is on nifedipine and labetalol for hypertension , she developed preeclampsia during the . She has no prior history of cardiac or respiratory problems. She is a nonsmoker. She denies orthopnea. She has no leg swelling or pain. She denies abdominal discomfort. Her oral intake is normal. She is tachycardic, and nearly tearful during my evaluation. She has a history anxiety, she is not currently taking anxiety medications. She does see a psychiatrist. She later confirms she is concerned about the diagnosis of hypertension. Related Data Previous Rx's Medication Instructions Recorded labetalol 100 mg PO BID #60 tab 06/10/19 nifedipine 60 mg PO DAILY #30 tab 06/10/19 Allergies Allergy/AdvReac Type Severity Reaction Status Date / Time No Known Drug Allergies Allergy Verified 07/17/19 15:37 Review of Systems Review of Systems ROS Unobtainable: All systems reviewed & are unremarkable except as noted in HPI and below Constitutional Constitutional: Denies chills, Denies fatigue, Denies fever(s), Denies lethargy and Denies weakness Eyes Eyes: Denies change in vision ENT Ears, Nose, Mouth, and Throat: Denies vertigo, Denies dizziness and Denies sore throat Cardiovascular Cardiovascular: Reports chest pain, Denies diaphoresis, Denies syncope, Denies pedal edema, Denies lightheadedness and Denies dyspnea Respiratory Respiratory: Denies chest congestion, Denies cough and Denies dyspnea Gastrointestinal Gastrointestinal: Denies abdominal pain, Denies change in bowel habits, Denies diarrhea, Denies nausea and Denies vomiting Genitourinary Genitourinary: Denies hematuria, Denies dysuria and Denies flank pain Musculoskeletal Musculoskeletal: Denies back pain, Denies muscle weakness, Denies numbness and Denies tingling Integumentary/Breasts Skin/Breast: Denies erythema, Denies rash and Denies wounds Neurologic Neurologic: Denies confusion, Denies vertigo, Denies dizziness, Denies syncope, Denies numbness, Denies tingling and Denies weakness Psychiatric Psychiatric: Reports anxiety, Denies confusion, Denies depression and Denies suicidal ideation Endocrine Endocrine: Denies fatigue and Denies flushing Hematologic/Lymphatic Hematologic/Lymphatic: Denies easy bruising Patient History Medical History (Updated 07/27/19 @ 23:08 by Mateo Rubin MD) Anxiety (Acute) Gestational diabetes mellitus (GDM) affecting first (Acute) Hypertension (Acute) Surgical History History of dental surgery (Acute ~2005) Family History Grandfather Cancer Grandmother Cervical cancer Lung cancer Grandfather Lung cancer Social History marital status: household members: spouse pets and animals: Yes (cat and aware) occupational status: unemployed current occupational exposures/hazards: No Smoking Status: Never smoker second hand exposure: No substance use type: does not use Smoking Status: Never smoker Substance Use Type: does not use Exam Initial Vital Signs Initial Vital Signs: Vital Signs Temperature 98.8 F 07/27/19 21:15 Pulse Rate 125 H 07/27/19 21:15 Respiratory Rate 20 07/27/19 21:15 Blood Pressure 130/73 07/27/19 21:15 Pulse Oximetry 99 07/27/19 21:15 Const General: cooperative, well developed and anxious Nutritional Appearance: well nourished [facility] Mouth: oral mucosae normal Eyes Conjunctivae: conjunctivae normal Pupils: PERRL EOM: EOM intact bilaterally Neck Neck: No lymphadenopathy and No JVD Resp Auscultation: clear to auscultation bilaterally Cardio Rate: tachycardic Rhythm: regular rhythm Heart Sounds: S1 normal, S2 normal, no click, no gallops and no murmurs GI Inspection: non-distended Palpation: soft, no hepatosplenomegaly, No guarding, No pulsatile mass and No tender Auscultation: normal bowel sounds Back/Spine/Pelvis Back: No CVA tenderness Skin Lesions: no lesions Rashes: no rashes Neuro General: alert, oriented x3, gait normal and no focal motor deficits Speech: speech normal Extrem General: full ROM, no pedal edema and no calf tenderness Course Course Course Narrative: The patient was tachycardic upon arrival at a rate of 120. She was obviously anxious upon arrival. I gave Ativan, her heart rate dropped to 80s. Chest pain anxiety resolved. She has a pre-existing history of anxiety, prior to the current delivery, and prior to the diagnosis with hypertension. She feels comfortable with her at home. She feels she is getting adequate sleep. Her provides great support. She has no suicidal thought. She is advised follow-up with her psychiatrist a discuss management anxiety. Orders Ordered: ED Orders 07/27/19 21:14 XR chest 1V Stat EKG-12 Lead Stat 07/27/19 21:26 Complete Blood Count AUTO DIFF Stat Comprehensive Metabolic Panel Stat D Dimer Stat Lipase Stat Partial Thromboplastin Time Stat Prothrombin Time INR Stat TSH [Thyroid Stimulating Hormone] Stat Troponin & CK Cardiac Panel Stat Discontinued Medications Lorazepam (Ativan) 0.5 mg PO NOW ONE Stop: 07/27/19 21:19 Last Admin: 07/27/19 21:41 Dose: 0.5 mg Documented by: GREGORY Vital Signs Vital signs: Vital Signs - 8 hr 07/27/19 21:15 07/27/19 22:33 Temperature 98.8 F Pulse Rate 134 H 93 H Respiratory Rate 29 H 21 Blood Pressure 130/73 Blood Pressure [Left Arm] 130/73 113/64 Pulse Oximetry 99 98 MDM - Chest Pain Lab Data Result diagrams: 07/27/19 21:26 07/27/19 21:26 Labs: Lab Results 07/27/19 07/27/19 07/27/19 Range/Units 21:26 21:26 21:26 WBC 11.0 (4.5-11.0) X10^3/uL RBC 4.76 (4.0-5.2) X10^6/uL Hgb 13.0 (12.0-16.0) g/dL Hct 37.9 (36-46) % MCV 79.6 L (80-100) fL MCH 27.2 (26-34) PG MCHC 34.2 (30-36) % RDW 13.2 (11.6-14.8) % Plt Count 464 H (150-400) X10^3/uL Neut % (Auto) 64.5 (50-75) % Lymph % (Auto) 26.8 (25-40) % [place] % (Auto) 6.7 (3-14) % Eos % (Auto) 1.2 L (2-4) % Baso % (Auto) 0.8 (0-2) % Neut # (Auto) 7100 H (8035-0180) /uL Lymph # (Auto) 2900 (1251-3123) /uL [place] # (Auto) 700 (0-900) /uL Eos # (Auto) 100 (0-450) /uL Baso # (Auto) 100 (0-100) /uL PT 12.9 H (10.1-12.7) SECONDS INR 1.1 (0.9-1.3) APTT 39 H (26.4-36.2) SECONDS D-Dimer (<230) ng/mL Sodium 140 (137-145) mmol/L Potassium 3.6 (3.4-5.1) mmol/L Chloride 102 (98-107) mmol/L Carbon Dioxide 26 (22-32) mmol/L BUN 14 (7-17) mg/dL Creatinine 0.80 (0.52-1.04) mg/dL Estimated GFR > 60.0 (>60) mL/min BUN/Creatinine Ratio 17.5 (6-22) Glucose 114 H (70-100) mg/dL Calcium 10.0 (8.4-10.2) mg/dL Total Bilirubin 1.3 (0.2-1.3) mg/dL AST 21 (14-36) IU/L ALT 15 (<35) IU/L Alkaline Phosphatase 68 (38-126) U/L Total Creatine Kinase 67 (30-135) U/L CK-MB (CK-2) TNP CK-MB (CK-2) Rel Index TNP Troponin I < 0.012 (0.01-0.034) ng/mL Total Protein 8.7 H (6.3-8.2) g/dL Albumin 5.0 (3.5-5.0) g/dL Globulin 3.7 (1.7-4.1) g/dL Albumin/Globulin Ratio 1.4 (1.0-2.8) Lipase 70 (23-300) U/L TSH (0.47-4.68) uIU/mL 07/27/19 07/27/19 Range/Units 21:26 21:26 WBC (4.5-11.0) X10^3/uL RBC (4.0-5.2) X10^6/uL Hgb (12.0-16.0) g/dL Hct (36-46) % MCV (80-100) fL MCH (26-34) PG MCHC (30-36) % RDW (11.6-14.8) % Plt Count (150-400) X10^3/uL Neut % (Auto) (50-75) % Lymph % (Auto) (25-40) % [place] % (Auto) (3-14) % Eos % (Auto) (2-4) % Baso % (Auto) (0-2) % Neut # (Auto) (6844-8517) /uL Lymph # (Auto) (4357-7760) /uL [place] # (Auto) (0-900) /uL Eos # (Auto) (0-450) /uL Baso # (Auto) (0-100) /uL PT (10.1-12.7) SECONDS INR (0.9-1.3) APTT (26.4-36.2) SECONDS D-Dimer < 200 (<230) ng/mL Sodium (137-145) mmol/L Potassium (3.4-5.1) mmol/L Chloride (98-107) mmol/L Carbon Dioxide (22-32) mmol/L BUN (7-17) mg/dL Creatinine (0.52-1.04) mg/dL Estimated GFR (>60) mL/min BUN/Creatinine Ratio (6-22) Glucose (70-100) mg/dL Calcium (8.4-10.2) mg/dL Total Bilirubin (0.2-1.3) mg/dL AST (14-36) IU/L ALT (<35) IU/L Alkaline Phosphatase (38-126) U/L Total Creatine Kinase (30-135) U/L CK-MB (CK-2) CK-MB (CK-2) Rel Index Troponin I (0.01-0.034) ng/mL Total Protein (6.3-8.2) g/dL Albumin (3.5-5.0) g/dL Globulin (1.7-4.1) g/dL Albumin/Globulin Ratio (1.0-2.8) Lipase (23-300) U/L TSH 1.72 (0.47-4.68) uIU/mL Imaging Data Chest x-ray: Radiologist's Impression: 73 Mateo Rubin MD Find Patient Imaging - Quiana Machado 24 F 1995 ACTIVITY DATE EXAM STATUS AUTHOR 07/27/19 21:14 Signed [place],[address] [address] XRay Report Signed Patient: Quiana Machado DMR#: [id number] : 1995Acct:[id number] Age/Sex: 24 / FDate of Service: 07/27/19 Loc: ED Accession Number: [id number] Procedure: XR chest 1V Ordering Provider: Mateo Rubin MD PROCEDURE: XR CHEST 1V INDICATIONS: chest pain TECHNIQUE: One view of the chest was acquired. COMPARISON: None. FINDINGS: Surgical changes and devices: None. Lungs and pleura: Lungs are clear. No pleural effusions or pneumothorax. Mediastinum: Mediastinal contours appear normal. Heart size is normal. Bones and chest wall: No suspicious bony lesions. Overlying soft tissues appear unremarkable. IMPRESSION: Portable chest within normal limits. Dictated by: Sunny Arce M.D. on 07/27/2019 at 21:47 Approved by: Sunny Arce M.D. on 07/27/2019 at 21:48 ECG Data Attestation: I personally reviewed and interpreted this ECG as follows: (Sinus tachycardia at 126 beats per minute. Normal intervals. Nonspecific ST T wave changes. No ectopy. Otherwise normal.) Discharge Plan Departure Patient Disposition: Home Clinical Impression: Anxiety Instructions: Anxiety Disorders Activity Restrictions/Additional Instructions: Follow-up with your psychiatrist regarding management anxiety. Return the ER as needed. Prescriptions: No Action labetalol 100 mg tablet 100 mg PO BID Qty: 60 RF: 1 nifedipine 60 mg tablet extended release 60 mg PO DAILY Qty: 30 RF: 0 Referrals: Randy Sunshine MD [Primary Care Provider] -
[2019-07-27 21:37] LABS: Add Manual Diff / Slide Review NO; Basophils Absolute Auto 100 /uL (0-100); Basophils Percent Auto 0.8 % (0-2); Eosinophils Absolute Auto 100 /uL (0-450); Eosinophils Percent Auto 1.2 % (2-4); Hematocrit 37.9 % (36-46); Lymphocytes Absolute Auto 2900 /uL (1100-4500); Lymphocytes Percent Auto 26.8 % (25-40); Mean Corpuscular HGB Conc 34.2 % (30-36); Mean Corpuscular Hemoglobin 27.2 PG (26-34); Mean Corpuscular Volume 79.6 fL (80-100); Monocytes Absolute Auto 700 /uL (0-900); Monocytes Percent Auto 6.7 % (3-14); Neutrophils Absolute Auto 7100 /uL (1500-7000); Neutrophils Percent Auto 64.5 % (50-75); Platelet Count 464 X10^3/uL (150-400); Red Blood Cell Count 4.76 X10^6/uL (4.0-5.2); Red Cell Distribution Width 13.2 % (11.6-14.8)
[2019-07-27] MEDS: LORazepam 0.5 MG TABLET PO (21:41)
[2019-07-27 21:42] LABS: INR 1.1 (0.9-1.3); Prothrombin Time 12.9 SECONDS (10.1-12.7)
[2019-07-27 21:44] LABS: PTT Partial Thromboplastin Tim 39 SECONDS (26.4-36.2)
[2019-07-27 21:45] LABS: Alanine Aminotransferase 15 IU/L (<35); Albumin Globulin Ratio 1.4 (1.0-2.8); Alkaline Phosphatase 68 U/L (38-126); Aspartate Aminotransferase 21 IU/L (14-36); BUN Creatinine Ratio 17.5 (6-22); Bilirubin Total 1.3 mg/dL (0.2-1.3); Blood Urea Nitrogen 14 mg/dL (7-17); Carbon Dioxide 26 mmol/L (22-32); Chloride 102 mmol/L (98-107); Creatine Kinase 67 U/L (30-135); Estimated Glomerular Filt Rate > 60.0 mL/min (>60); Globulin 3.7 g/dL (1.7-4.1); Glucose 114 mg/dL (70-100); HEMOLYSIS < 15 (0-50); Lipase 70 U/L (23-300); Potassium 3.6 mmol/L (3.4-5.1); Sodium 140 mmol/L (137-145); Total Protein 8.7 g/dL (6.3-8.2)
[2019-07-27 21:46] LABS: D Dimer < 200 ng/mL (<230)
[2019-07-27 21:57] LABS: Troponin I < 0.012 ng/mL (0.01-0.034)
[2019-07-27 22:32] LABS: Thyroid Stimulating Hormone 1.72 uIU/mL (0.47-4.68)
[2019-07-27 22:33] VITALS: BP 113/64; PULSE 93; RESP 21; O2SAT 98
[2019-07-27 23:16] VITALS: BP 114/62; PULSE 89; RESP 16; TEMP 37.4; O2SAT 99
== END 2019-07-27 23:16 | disposition home or self-care (01) ==
PROVIDERS: Emergency Provider Emergency Medicine; PCP General Practice
DX: F41.9 Anxiety disorder, unspecified (principal); R00.0 Tachycardia, unspecified; R07.9 Chest pain, unspecified
CPT/HCPCS: 36415; 71045; 80053; 82550; 83690; 84443; 84484; 85025; 85379; 85610; 85730; 93005; 99284; 99285

== ENCOUNTER 2021-05-03 17:58 | Emergency (ER) | payer OTHER, SELFPAY ==
--- NOTE | 2021-05-03 18:15 | DI.US.S_ITS ---
PROCEDURE: US OB <= 14 WEEKS FETUS INDICATIONS: 6-8 weeks , vag bleeding x 3 days. OUTSIDE/PRIOR DATING DATA: Last menstrual period (LMP): Unknown LMP-based estimated date of delivery (ZULEMA): Not applicable. First dating scan (date and location): May 03, 2021. Estimated date of delivery (ZULEMA) from first dating scan: December 22, 2021. TECHNIQUE: Real-time scanning was performed of the fetus and maternal pelvic organs, with image documentation. Endovaginal scanning was also performed to better visualize the fetus and maternal ovaries. COMPARISON: None. FINDINGS: Embryo: Single living intrauterine gestation with estimated gestational age of approximately 6 weeks and 5 days based off crown-rump length measurement of 0.8 cm. Normal yolk sac seen. No perigestational hemorrhage. Heart rate: 128 beats per minute. Measurement variability in dating: +/- 4 weeks by LMP, +/- 7 days by mean sac diameter (use before 6 weeks gestation if crown-rump length not able to be measured), +/- 5 days by crown-rump length (up to 8 weeks 6 days gestation), +/- 7 days by crown-rump length (up to 13 weeks 6 days gestation). Maternal organs: Ovaries appear unremarkable . IMPRESSION: Single living intrauterine gestation with estimated sonographic gestational age of approximately 6 weeks and 5 days with estimated dated delivery of approximately December 22, 2021. Recommend routine second trimester anatomic screening survey. Dictated by: Emre Hernandez M.D. on 05/03/2021 at 19:46 Approved by: Emre Hernandez M.D. on 05/03/2021 at 19:48
[2021-05-03 18:35] VITALS: BP 148/88; PULSE 96; RESP 18; TEMP 36.9; O2SAT 99; BMI 37.1
[2021-05-03 19:22] LABS: Add Manual Diff / Slide Review NO; Basophils Absolute Auto 0 /uL (0-100); Basophils Percent Auto 0.5 % (0-2); Eosinophils Absolute Auto 100 /uL (0-450); Eosinophils Percent Auto 0.6 % (2-4); Hematocrit 42.2 % (36-46); Hemoglobin 14.4 g/dL (12.0-16.0); Lymphocytes Absolute Auto 2300 /uL (1100-4500); Lymphocytes Percent Auto 21.4 % (25-40); Mean Corpuscular HGB Conc 34.1 % (30-36); Mean Corpuscular Hemoglobin 26.9 PG (26-34); Mean Corpuscular Volume 78.9 fL (80-100); Monocytes Absolute Auto 600 /uL (0-900); Monocytes Percent Auto 5.4 % (3-14); Neutrophils Absolute Auto 7600 /uL (1500-7000); Neutrophils Percent Auto 72.1 % (50-75); Platelet Count 409 X10^3/uL (150-400); Red Blood Cell Count 5.35 X10^6/uL (4.0-5.2); Red Cell Distribution Width 15.3 % (11.6-14.8); White Blood Cell Count 10.6 X10^3/uL (4.5-11.0)
[2021-05-03 19:35] LABS: Alanine Aminotransferase 43 IU/L (<35); Albumin 5.2 g/dL (3.5-5.0); Albumin Globulin Ratio 1.3 (1.0-2.8); Alkaline Phosphatase 52 U/L (38-126); Aspartate Aminotransferase 34 IU/L (14-36); BUN Creatinine Ratio 15.4 (6-22); Bilirubin Total 1.4 mg/dL (0.2-1.3); Blood Urea Nitrogen 10 mg/dL (7-17); Calcium 9.9 mg/dL (8.4-10.2); Carbon Dioxide 23 mmol/L (22-32); Chloride 104 mmol/L (98-107); Estimated Glomerular Filt Rate > 60.0 mL/min (>60); Globulin 3.9 g/dL (1.7-4.1); Glucose 102 mg/dL (70-100); HEMOLYSIS < 15 (0-50); Potassium 3.8 mmol/L (3.4-5.1); Sodium 139 mmol/L (137-145); Total Protein 9.1 g/dL (6.3-8.2)
[2021-05-03 20:15] LABS: HCG Quantitative /Beta subunit 15533 mIU/mL
[2021-05-03 20:21] VITALS: BP 138/92; PULSE 90; O2SAT 100
--- NOTE | 2021-05-03 20:28 | ED_ITS ---
HPI - Female Genitourinary General Chief complaint: Urogenital-Female Stated complaint: 6-8 weeks/bleeding x3 days Time Seen by Provider: 05/03/21 20:23 Source: patient Mode of arrival: Ambulatory Limitations: no limitations History of Present Illness HPI Narrative: 26-year-old female nonsmoker is a at about 6 weeks who presents with some spotting with wiping over the course of the day. She denies any fever chills. She has no pain. She is not dizzy nor weak or lightheaded. Her last menstrual cycle was in January and normal for her. Her OB doctor is Dr. Ruff Related Data Previous Rx's Medication Instructions Recorded labetalol 100 mg tablet 100 mg PO BID #60 tab 06/10/19 nifedipine 60 mg tablet,extended 60 mg PO DAILY #30 tab 06/10/19 release Allergies Allergy/AdvReac Type Severity Reaction Status Date / Time No Known Drug Allergies Allergy Verified 07/17/19 15:37 Review of Systems Review of Systems Narrative: GENERAL: Denies chills, fatigue, malaise, fever, sweats. HEENT: Denies sinus pain, ear pain, sore throat, difficulty swallowing, dizziness. RESPIRATORY: Denies dyspnea, cough, wheezing, hemoptysis, sputum. CARDIOVASCULAR: Denies chest pain, palpitations, orthopnea, edema, GASTROINTESTINAL: Denies nausea, vomiting, abdominal pain, diarrhea, constipation, melena. : See HPI MUSCULOSKELETAL: denies weakness, joint pain, or bony pain SKIN: Denies rash, skin lesions, or other NEUROLOGIC: Denies weakness, headache, numbness, change in speech, confusion, seizures, incoordination. PSYCHIATRIC: No concerning psychosocial issues. 12 point review of systems is negative except for those stated above Patient History Medical History Anxiety Gestational diabetes mellitus (GDM) affecting first Hypertension Surgical History History of dental surgery (~2004) Family History Grandfather Cancer Grandmother Cervical cancer Lung cancer Grandfather Lung cancer Substance Use Type: does not use Exam Narrative Exam Narrative: GENERAL: [26] year old patient appears stated age. Well- developed patient, in mild distress. HEAD: Atraumatic. Normocephalic. EYES: Pupils equal round and reactive. Extraocular motions intact. No scleral icterus. No injection or drainage. ENT: Nose without bleeding, purulent drainage. Throat without erythema, tonsillar hypertrophy or exudate. Airway patent. NECK: Trachea midline. Non tender CARDIOVASCULAR: Regular rate and rhythm without murmurs, gallops, or rubs. RESPIRATORY: Clear to auscultation. Breath sounds equal bilaterally. No wheezes, rales, or rhonchi. GASTROINTESTINAL: Abdomen soft, non-tender, nondistended. EXTREMITIES: No edema or joint tenderness. BACK: Nontender without deformity or crepitance. No flank tenderness. NEURO: AOx3. SKIN: No rash or erythema of visible areas Initial Vital Signs Initial Vital Signs: Vital Signs Temperature 98.4 F 05/03/21 18:35 Pulse Rate 96 H 05/03/21 18:35 Respiratory Rate 18 05/03/21 18:35 Blood Pressure 148/88 H 05/03/21 18:35 Pulse Oximetry 99 05/03/21 18:35 Course Orders Ordered: ED Orders 05/03/21 19:10 ABO RH Type Stat Complete Blood Count AUTO DIFF Stat Comprehensive Metabolic Panel Stat HCG Quantitative /Beta subunit Stat 05/03/21 20:40 Urine Microscopic Stat Consultations Consultation #1: quick discussion with switchboard receptionist OB, no need for Rhogam in this scenario (6 weeks, and very minimal spotting only) Vital Signs Vital signs: Vital Signs - 8 hr 05/03/21 20:21 Pulse Rate 90 Blood Pressure 138/92 H Pulse Oximetry 100 MDM - Female Genitourinary Lab Data Result diagrams: 05/03/21 19:10 05/03/21 19:10 Labs: Lab Results 05/03/21 05/03/21 05/03/21 Range/Units 19:10 19:10 19:10 WBC 10.6 (4.5-11.0) X10^3/uL RBC 5.35 H (4.0-5.2) X10^6/uL Hgb 14.4 (12.0-16.0) g/dL Hct 42.2 (36-46) % MCV 78.9 L (80-100) fL MCH 26.9 (26-34) PG MCHC 34.1 (30-36) % RDW 15.3 H (11.6-14.8) % Plt Count 409 H (150-400) X10^3/uL Neut % (Auto) 72.1 (50-75) % Lymph % (Auto) 21.4 L (25-40) % [place] % (Auto) 5.4 (3-14) % Eos % (Auto) 0.6 L (2-4) % Baso % (Auto) 0.5 (0-2) % Neut # (Auto) 7600 H (4734-3650) /uL Lymph # (Auto) 2300 (2768-1323) /uL [place] # (Auto) 600 (0-900) /uL Eos # (Auto) 100 (0-450) /uL Baso # (Auto) 0 (0-100) /uL Sodium 139 (137-145) mmol/L Potassium 3.8 (3.4-5.1) mmol/L Chloride 104 (98-107) mmol/L Carbon Dioxide 23 (22-32) mmol/L BUN 10 (7-17) mg/dL Creatinine 0.65 (0.52-1.04) mg/dL Estimated GFR > 60.0 (>60) mL/min BUN/Creatinine Ratio 15.4 (6-22) Glucose 102 H (70-100) mg/dL Calcium 9.9 (8.4-10.2) mg/dL Total Bilirubin 1.4 H (0.2-1.3) mg/dL AST 34 (14-36) IU/L ALT 43 H (<35) IU/L Alkaline Phosphatase 52 (38-126) U/L Total Protein 9.1 H (6.3-8.2) g/dL Albumin 5.2 H (3.5-5.0) g/dL Globulin 3.9 (1.7-4.1) g/dL Albumin/Globulin Ratio 1.3 (1.0-2.8) HCG, Quant 88580 mIU/mL Urine RBC (0-5/HPF) Urine WBC (0-5/HPF) Ur Squamous Epith Cells (0-5/HPF) Urine Bacteria (None) Urine Mucus (Negative) Ur Culture Indicated? Blood Type A Negative 05/03/21 Range/Units 20:40 WBC (4.5-11.0) X10^3/uL RBC (4.0-5.2) X10^6/uL Hgb (12.0-16.0) g/dL Hct (36-46) % MCV (80-100) fL MCH (26-34) PG MCHC (30-36) % RDW (11.6-14.8) % Plt Count (150-400) X10^3/uL Neut % (Auto) (50-75) % Lymph % (Auto) (25-40) % [place] % (Auto) (3-14) % Eos % (Auto) (2-4) % Baso % (Auto) (0-2) % Neut # (Auto) (0072-6095) /uL Lymph # (Auto) (0050-7345) /uL [place] # (Auto) (0-900) /uL Eos # (Auto) (0-450) /uL Baso # (Auto) (0-100) /uL Sodium (137-145) mmol/L Potassium (3.4-5.1) mmol/L Chloride (98-107) mmol/L Carbon Dioxide (22-32) mmol/L BUN (7-17) mg/dL Creatinine (0.52-1.04) mg/dL Estimated GFR (>60) mL/min BUN/Creatinine Ratio (6-22) Glucose (70-100) mg/dL Calcium (8.4-10.2) mg/dL Total Bilirubin (0.2-1.3) mg/dL AST (14-36) IU/L ALT (<35) IU/L Alkaline Phosphatase (38-126) U/L Total Protein (6.3-8.2) g/dL Albumin (3.5-5.0) g/dL Globulin (1.7-4.1) g/dL Albumin/Globulin Ratio (1.0-2.8) HCG, Quant mIU/mL Urine RBC 0-1/hpf (0-5/HPF) Urine WBC 0-1/hpf (0-5/HPF) Ur Squamous Epith Cells 1-5 /hpf (0-5/HPF) Urine Bacteria None seen (None) Urine Mucus 2+ H (Negative) Ur Culture Indicated? Cult not indicated Blood Type Urine Dip Bedside Urine Glucose Negative Bedside Urine Bilirubin - Negative Bedside Urine Ketone +++ 80 Urine Specific [place] 1.030 Bedside Urine Occult Blood +/- Bedside Urine pH 6.0 Bedside Urine Protein +/- 15 Bedside Urine Urobilinogen - Negative Bedside Urine Nitrite - Negative Bedside Urine Leukocytes - Negative Esterase Imaging Data US - DVT: Radiologist's Impression: [address] [address] Ultrasound Report Signed Patient: Quiana Machado MR#: [id number] : 1995 Acct:[id number] Age/Sex: 26 / F Date of Service: 05/03/21 Loc: ED Accession Number: [id number] ?? Procedure: US OB <= 14 weeks fetus Ordering Provider: Román García D.O. PROCEDURE:? US OB <= 14 WEEKS FETUS ? INDICATIONS:? 6-8 weeks , vag bleeding x 3 days. ? OUTSIDE/PRIOR DATING DATA:? Last menstrual period (LMP):? Unknown LMP-based estimated date of delivery (ZULEMA):? Not applicable.? First dating scan (date and location):? May 03, 2021.? Estimated date of delivery (ZULEMA) from first dating scan:? December 22, 2021.? ? TECHNIQUE:? Real-time scanning was performed of the fetus and maternal pelvic organs, with image documentation.? Endovaginal scanning was also performed to better visualize the fetus and maternal ovaries.? ? COMPARISON:? None. ? FINDINGS:? ? Embryo:? Single living intrauterine gestation with estimated gestational age of approximately 6 weeks and 5 days based off crown-rump length measurement of 0.8 cm.? Normal yolk sac seen.? No perigestational hemorrhage.? Heart rate:? 128 beats per minute. ? Measurement variability in dating:? +/- 4 weeks by LMP, +/- 7 days by mean sac diameter (use before 6 weeks gestation if crown-rump length not able to be measured), +/- 5 days by crown-rump length (up to 8 weeks 6 days gestation), +/- 7 days by crown-rump length (up to 13 weeks 6 days gestation).? ? Maternal organs:? Ovaries appear unremarkable . ? ? ? IMPRESSION:? Single living intrauterine gestation with estimated sonographic gestational age of approximately 6 weeks and 5 days with estimated dated delivery of approximately December 22, 2021. ? Recommend routine second trimester anatomic screening survey. ? Dictated by: Emre Hernandez M.D. on 05/03/2021 at 19:46 ? ? Approved by: Emre Hernandez M.D. on 05/03/2021 at 19:48 ? Discharge Plan Departure Patient Disposition: Home Clinical Impression: Hemorrhage, , early Instructions: Early Bleeding Activity Restrictions/Additional Instructions: *You have been diagnosed with [minimal bleeding in 1st trimester. Your blood work and ultrasound are very reassuring and there is no evidence of ectopic . As we discussed, this is most likely a normal consequence early in , but this could be very early miscarriage. Close follow-up is and *What to do: *Please continue to take your regular medications as directed. [ ] New medication prescriptions sent to your pharmacy: [ ] [ ] New medication written as a paper prescription [x ] No new medications given *Please follow up with yourOB provider in 2-3 days, call tomorrow morning for an appointment. Let them know you were seen in the Emergency Department and that we ask that you be seen in follow up. We will electronically transmit a record of today's note *Return to Emergency Department if you should have any new, worsening or concerning symptoms, such as [fever greater than 101 F, shaking chills, worsening pain, persistent vomiting, heavy bleeding (greater than 1 pad per hour) other bothersome symptoms] Prescriptions: No Action labetalol 100 mg tablet 100 mg PO BID Qty: 60 RF: 1 nifedipine 60 mg tablet extended release 60 mg PO DAILY Qty: 30 RF: 0 Referrals: Kirstie Ruff MD [Physician] -
[2021-05-03 21:16] LABS: Bacteria Urine None Seen; Culture Indicated Urine Cult Not Indicated; Mucus Urine 2+ (Negative); RBC Urine 0-1/HPF (0-5/HPF); Squamous Epithelial Cell Urine 1-5 /HPF (0-5/HPF); WBC Urine 0-1/HPF (0-5/HPF)
== END 2021-05-03 20:55 | disposition home or self-care (01) ==
PROVIDERS: Emergency Provider Emergency Medicine
DX: O20.9 Hemorrhage in early pregnancy, unspecified (principal); Z3A.01 Less than 8 weeks gestation of pregnancy
CPT/HCPCS: 36415; 76801; 76817; 80053; 81003; 81015; 84702; 85025; 86900; 86901; 99284

== ENCOUNTER → 2021-06-09 11:21 | Outpatient (CLI) | payer OTHER, SELFPAY ==
[2021-06-09 12:16] LABS: Appearance Urine UA SL CLOUDY; Bilirubin Urine UA 1+ (NEGATIVE); Color Urine UA YELLOW; Glucose Urine UA TRACE g/dL (Negative); Ketones Urine UA 2+ (NEGATIVE); Leukocyte Esterase Urine UA NEGATIVE (NEGATIVE); Nitrite Urine UA NEGATIVE (Negative); Occult Blood Urine UA TRACE-INTACT (Negative); Protein Urine UA 2+ (Negative); Specific Gravity Urine UA >=1.030 (1.000-1.035); Urobilinogen Urine UA 0.2 E.U./dL (0.2)
[2021-06-09 12:30] LABS: Ictotest Urine Negative (Negative)
[2021-06-09 13:59] LABS: Add Manual Diff / Slide Review NO; Basophils Absolute Auto 0 /uL (0-100); Basophils Percent Auto 0.3 % (0-2); Eosinophils Absolute Auto 0 /uL (0-450); Eosinophils Percent Auto 0.4 % (2-4); Hemoglobin 13.1 g/dL (12.0-16.0); Lymphocytes Absolute Auto 1700 /uL (1100-4500); Lymphocytes Percent Auto 21.3 % (25-40); Mean Corpuscular HGB Conc 34.5 % (30-36); Mean Corpuscular Hemoglobin 27.7 PG (26-34); Mean Corpuscular Volume 80.2 fL (80-100); Monocytes Absolute Auto 300 /uL (0-900); Monocytes Percent Auto 3.9 % (3-14); Neutrophils Absolute Auto 6000 /uL (1500-7000); Neutrophils Percent Auto 74.1 % (50-75); Platelet Count 316 X10^3/uL (150-400); Red Blood Cell Count 4.73 X10^6/uL (4.0-5.2); Red Cell Distribution Width 14.8 % (11.6-14.8)
[2021-06-09 14:08] LABS: Hemoglobin A1C% w Est Avg Glu 4.7 % (4.0-6.0)
[2021-06-09 14:28] LABS: Alanine Aminotransferase 124 IU/L (<35); Albumin 4.3 g/dL (3.5-5.0); Albumin Globulin Ratio 1.5 (1.0-2.8); Alkaline Phosphatase 55 U/L (38-126); Aspartate Aminotransferase 76 IU/L (14-36); BUN Creatinine Ratio 15.4 (6-22); Bilirubin Total 1.4 mg/dL (0.2-1.3); Blood Urea Nitrogen 8 mg/dL (7-17); Calcium 9.3 mg/dL (8.4-10.2); Carbon Dioxide 24 mmol/L (22-32); Chloride 102 mmol/L (98-107); Estimated Glomerular Filt Rate > 60.0 mL/min (>60); GTT (PREG) 1 Hour PP 50gm Dose 153 mg/dL (76-139); Globulin 2.9 g/dL (1.7-4.1); Glucose 153 mg/dL (70-100); HEMOLYSIS < 15 (0-50); Lactate Dehydrogenase 431 U/L (313-618); Potassium 4.2 mmol/L (3.4-5.1); Sodium 135 mmol/L (137-145); Total Protein 7.2 g/dL (6.3-8.2); Uric Acid 4.2 mg/dL (2.5-6.2)
[2021-06-09 14:36] LABS: Glucose 154 mg/dL (70-100)
[2021-06-09 17:38] LABS: Creatinine Urine Random 401.7 mg/dL; Protein (Total) Urine Random < 5 mg/dL (0-12)
[2021-06-09 17:39] LABS: Protein Creatinine Ratio Urine < 0.01 GRAM/24H
[2021-06-10 06:32] LABS: RPR Screen Non Reactive (Non Reactive)
[2021-06-10 08:47] LABS: Varicella IgG Antibody 192 index (Immune >165)
[2021-06-12 21:41] LABS: Rubella Antibody IgG 14.7 IU/mL (>15)
[2021-06-12 22:06] LABS: HIV 1 & 2 Ab/Ag 4th Gen Combo NEGATIVE (NEGATIVE); Hep C Virus Ab w/Reflex Quant NEGATIVE s/c (NEGATIVE)
[2021-06-15 17:54] LABS: Hepatitis B Surface Antigen NEGATIVE s/c (NEGATIVE)
== END ==
PROVIDERS: Obstetrics & Gynecology; Referring Provider Obstetrics & Gynecology; Visit Provider Obstetrics & Gynecology
DX: Z87.59 Personal history of other complications of pregnancy, childbirth and the puerperium (principal); Z34.81 Encounter for supervision of other normal pregnancy, first trimester
CPT/HCPCS: 36415; 80053; 80055; 81003; 82570; 82947; 82950; 83036; 83615; 84156; 84550; 86787; 86803; 86850; 86900; 86901; 87086; 87389

== ENCOUNTER → 2021-06-30 11:17 | Outpatient (CLI) | payer OTHER, SELFPAY ==
[2021-06-30 13:16] LABS: Glucose Fasting Gestational 88 mg/dL (76-95)
[2021-06-30 13:51] LABS: Glucose 1 Hour Gest 184 mg/dL (76-180)
[2021-06-30 14:36] LABS: Glucose Tol Interp,Gestational INTERPRETATION
[2021-06-30 15:14] LABS: Glucose 2 Hour Gest 170 mg/dL (76-155)
[2021-06-30 15:45] LABS: Glucose 3 Hour Gest 132 mg/dL (76-140)
== END ==
PROVIDERS: Referring Provider Obstetrics & Gynecology; Visit Provider Obstetrics & Gynecology
DX: R73.09 Other abnormal glucose (principal)
CPT/HCPCS: 36415; 82951; 82952

== ENCOUNTER → 2021-07-19 08:56 | Outpatient (CLI) | payer OTHER, SELFPAY ==
--- NOTE | 2021-07-20 15:59 | DIAB.GDA ---
Initial Gestational Diabetes Assessment Name: Quiana Machado Date: 07/19/21 Time: [id number] Dx: Gestational Diabetes Provider: Elzbieta ZULEMA: 12/22/21 Weeks: 17-18 Quiana presents today for initial GDM visit. Endorses PMH of PCOS. Reports PMH of GDM with last (son) 2 years ago. Also endorses preeclampsia at 37 weeks. Reports she has a good baseline knowledge about GDM pathophysiology and diet suggestions. Current diet does indicate she is eating below TELEPHONE SERVICES SALES REPRESENTATIVE for carbs during , which is likely why her BG are reportedly much lower than last . Aiming for very low carb. Unaware of net carbs for label reading. Limited physical activity. Tracking food and BG in log. Plans to breastfeed. Difficulty with milk production reported for last baby. Did see dairy nutrition consultant. BF for 4 days with son. Food Journal Entry: B: chicken and cheese sandwich with one slice bread (15g CHO) L: 1c rice with sf jello and chicken with veg (45g CHO adequate) D: chicken quesadilla on low carb tortilla (5g CHO) no snacks this day total carb intake for this day: 65g Anthropometrics: Ht: 66 Wt: 220# today indicating -5# since last ob visit Prepregnancy wt: 230# Wt changes: -10# Physical Activity: Walks with 2y/o son twice per week, 30 min. Self-Monitoring Blood Glucose: Currently checking FBG and 2 hour. Only one elevation after taking sweetened cough syrup. ADA recs for postprandially at 2 hours 100-120 mg/dL. Most readings below 100 due to low carb intake. Lunch does seem to have more consistent in range readings. Based on food journal and BG, she certainly has room to increase nutrition. Date Pre Post Pre Post Pre Post HS 07/13 84 88 89 97 07/14 86 94 104 80 07/15 90 91 119 85 07/16 82 92 111 100 07/17 85 81 132 cough syrup 76 07/18 81 95 95 93 07/19 85 102 Diabetes Medications: None Pertinent Labs: HgA1c 4.7% 1hr screen: 153 H OGTT: 88, 184 H, 170 H, 132 Nutrition Rx: Carbohydrates: 175g TELEPHONE SERVICES SALES REPRESENTATIVE Meal: 45g lunch and dinner; 30g breakfast Snack: 15-30g Nutrition Diagnosis: Altered nutrition related lab value r/t GDM dx aeb recent OGTT Inadequate carb intake for r/t nutrition related knowledge deficit aeb pt report, diet recall, weight loss and BG <100 postprandial Intervention: This participant was very receptive. Provided appropriate educational handouts. Discussed the following topics: Brief overview of GDM pathophysiology and impact of hyperglycemia on mom and baby and risk for T2DM for mom and baby in the future, ways to reduce risk T2DM Plate Method, meal timing, carb counting, pairing macronutrients and spreading out CHO for better BG management Label reading Blood glucose goals (FBG: <95 and 2 hour 100-120 mg/dL); importance of checking 4x per day (FBG and pc) Role of physical activity and following provider guidelines for safety Goals: Check food labels for net carbs Walk 3 x per week Aim for nutrition rx for carbs at meals and snacks Follow-up: MOR GARCIA follow-up in 2 weeks Trudy Perla RDN, RADHA Certified Diabetes Care and Fishing Tool Operator T: [phone] F: [phone] [email or web address] Thank you for this referral
== END ==
PROVIDERS: Referring Provider Obstetrics & Gynecology; Visit Provider Obstetrics & Gynecology
DX: O24.419 Gestational diabetes mellitus in pregnancy, unspecified control (principal); Z3A.17 17 weeks gestation of pregnancy; Z71.3 Dietary counseling and surveillance
CPT/HCPCS: 97802

== ENCOUNTER → 2021-08-02 15:31 | Outpatient (CLI) | payer OTHER, SELFPAY ==
--- NOTE | 2021-08-02 15:30 | DIAB.GDFU ---
Follow-up Gestational Diabetes Assessment Name: Quiana Machado Date: 08/02/21 Time: 3-330p Dx: Gestational Diabetes ZULEMA: 12/22/21 Weeks: 19-20 Keira presents virtually using [employer] platform regarding GDM follow-up. She has consented to using telehealth services for this visit. Endorses emesis 3 x this week. Taking B6, not unisom due to worries about being sleepy while with toddler. Has been adding toast to breakfast and pretzels to lunch. Has had gradual weight loss with last too. Attributes the weight loss to her diet during , eating much different from usual intake. Usually eat larger portions. Reading label for net carbs. Improved CHO intake for without frequent hyperglycemia. Predicted 125-150g per day for carbs. FIELD SERVICE SUPERVISOR for is 175g CHO. Diet Recall: B: toast is 21g +/- jelly =5g, 8-16oz milk (12-24g) = total 20-45g CHO Snack: pretzels and P3 pack (turkey and cheese) strawberries =10-15g CHO L: leftovers usually buffalo chx quesadilla (low carb tortilla) or chicken strips or chx with pasta or cereal or crackers cheese with ham and apples or tri tip quesadillas and fruit D: similar to lunch but larger portions : tritip broccoli, white cheddar noodles 3/4c 35g CHO Cereal or cheerios: 1-1.5c cereal with whole milk (45-60g CHO) chicken boneless wings x 6 Snack: dark chocolate and banana or SF pop Beverages: tea with Splenda, water 2 x 64oz, chas in water, 8-16oz milk with breakfast Anthropometrics: Ht: 66 Wt: 221# at last OB visit on 07/25/21 Prepregnancy wt: 230# Wt changes: -9# Recommendations: Discussed trying to maintain weight instead of loss at this time. Incorporating complex carbs with protein and healthy fats may help. Physical Activity: Walking 2 x per week and now swimming one day per week. Self-Monitoring Blood Glucose: Blood sugars continue mostly in range. One elevations with testing pasta (went out to eat, half plate was pasta) Bg 124 mg/dL. ADA goal for 2 hour pc: 100-120 mg/dL. With pc numbers in the low 100s, indicates likely adequate intake and good BG mgmgnt. 88 BG after breakfast may be from walks after breakfast, unclear. Date Pre Post Pre Post Pre Post Notes 07/26 92 90 97 85 2/ 91 105 90 94 07/28 90 88 102 124 pasta 07/29 92 88 100 104 07/30 92 100 101 87 07/31 90 112 85 93 08/01 88 97 90 117 08/02 92 99 Diabetes Medications: None Pertinent Labs: HgA1c 4.7% 1hr screen: 153 H OGTT: 88, 184 H, 170 H, 132 Nutrition Rx: Carbohydrates: 175g FIELD SERVICE SUPERVISOR Meal: 45g lunch and dinner; 30-45g breakfast Snack: 15-30g Nutrition Diagnosis: Altered nutrition related lab value r/t GDM dx aeb recent OGTT Inadequate carb intake for r/t nutrition related knowledge deficit aeb pt report, diet recall, weight loss and BG <100 postprandial- improved/in progress Intervention: This participant was very receptive. Provided appropriate educational handouts. Discussed the following topics: Recent blood sugar results and impact of food and hormones Potential for BG changes as progresses Review of macronutrient recommendations during and creating balanced carb conscious meals Physical activity benefits and recs Ways to help maintain weight vs losing weight during Goals: Check food labels for net carbs- met Walk 3 x per week- met Aim for nutrition rx for carbs at meals and snacks- improved/in progress Aim to be active for 3 days or more per week- new Follow-up: MOR GARCIA follow-up in 3-4 weeks Quiana seems to be doing well with diet changes and adding more nutrition into diet. Will follow-up next month, but encouraged her to contact me with any questions or changes prior to our visit prn. Overall, Dm mgmgnt seems to be going well. Hoping she can incorporate more complex carbs to help reduce weight loss. Given BG readings <100 after some very low carb meals, she seems to have room for this. Much improved from last visit nutritionally though. She agreed to this plan. Trudy Perla RDN, RADHA Certified Diabetes Care and Coremaker Bench T: [phone] F: [phone] [email or web address] Thank you for this referral
== END ==
PROVIDERS: Referring Provider Obstetrics & Gynecology; Visit Provider Obstetrics & Gynecology
DX: O24.419 Gestational diabetes mellitus in pregnancy, unspecified control (principal); Z3A.19 19 weeks gestation of pregnancy; Z71.3 Dietary counseling and surveillance
CPT/HCPCS: 97803

== ENCOUNTER → 2021-08-07 09:05 | Outpatient (CLI) | payer OTHER, SELFPAY ==
--- NOTE | 2021-08-07 09:07 | DI.US.S_ITS ---
PROCEDURE: US OB >= 14 WEEKS FETUS INDICATIONS: ANATOMY OUTSIDE/PRIOR DATING DATA: Last menstrual period (LMP): Unknown. First dating scan (date and location): [facility]; May 03, 2021. Estimated date of delivery (ZULEMA) from first dating scan: December 22, 2021. TECHNIQUE: Real-time scanning was performed of the fetus, with image documentation and biometric measurements. COMPARISON: [facility], US, US OB <= 14 WEEKS FETUS, 06/27/2021, 9:14. FINDINGS: General: A single living intrauterine gestation is present. Presentation: Breech. Placenta: Placental position is posterior right, without previa. Amniotic fluid index: 13.6 cm, normal range is 5-24 cm. Single deepest vertical pocket is 4.4 cm. heart rate: 150 beats per minute. Maternal cervical canal: 3.8 cm long. Normal lower limit is 2.5 cm. biometrics: Biparietal diameter: 5 cm Head circumference: 18.9 cm Abdominal circumference: 16.7 cm Femur length: 3.1 cm Clinically estimated gestational age: 20 weeks, 3 days Composite gestational age from present scan: 21 weeks Estimated weight and percentile: 377 +/-56 g; 65 percent Anatomic survey: Neuro: Ventricles are non-dilated at less than 10 mm. Cisterna magna is normal at 3-11 mm. Cerebellum is normal in size and morphology. Nuchal skin fold: Normal at less than 6 mm between 14-21 weeks gestational age. Face: Nose and lips, facial profile are normal. Spine: No evidence for spina bifida. Heart: 4-chambered heart is present, with normal ventricular outflow tracts. Diaphragm: Diaphragm is intact. Stomach: Left-sided stomach is present. Kidneys: No hydronephrosis. Normal is less than 5 mm in 2nd trimester, less than 7 mm in 3rd trimester. Cord: 3-vessel cord has orthotopic insertion. Bladder: Normal in size. Extremities: All 4 extremities identified. IMPRESSION: Single intrauterine gestation as detailed above. We strive to produce accurate, complete, and clear reports of imaging services. To assist us in improving patient care, this report was composed using standard report templates and voice recognition software. Therefore, it may contain abnormal punctuation, insertions and/or omissions. Occasional wrong-word or sound-alike substitutions may occur. Though we review the report and make efforts to correct it, we do recommend that the report be read carefully in proper context to recognize any text inaccuracies. Dictated by: Lalo Montoya M.D. on 08/07/2021 at 12:00 Approved by: Lalo Montoya M.D. on 08/07/2021 at 12:03
== END ==
PROVIDERS: Referring Provider Obstetrics & Gynecology; Visit Provider Obstetrics & Gynecology
DX: Z34.82 Encounter for supervision of other normal pregnancy, second trimester (principal); Z3A.21 21 weeks gestation of pregnancy
CPT/HCPCS: 76811

== ENCOUNTER → 2021-08-22 11:04 | Outpatient (CLI) | payer OTHER, SELFPAY ==
[2021-08-22 15:46] LABS: Protein (Total) Urine Random 11 mg/dL (0-12)
[2021-08-22 16:11] LABS: Protein Creatinine Ratio Urine 0.02 GRAM/24H
== END ==
PROVIDERS: Visit Provider Obstetrics & Gynecology
DX: Z87.59 Personal history of other complications of pregnancy, childbirth and the puerperium (principal)
CPT/HCPCS: 82570; 84156

== ENCOUNTER → 2021-09-26 10:17 | Outpatient (CLI) | payer OTHER, SELFPAY ==
--- NOTE | 2021-08-31 17:45 | DIAB.GDFU ---
Follow-up Gestational Diabetes Assessment Name: Quiana Machado Date: Time: Dx: Gestational Diabetes ZULEMA: 12/22/21 Weeks: 24 Keira presents virtually using [employer] platform regarding GDM follow-up. She has consented to using telehealth services for this visit. Reports eating more balanced meals for lunch and dinner by adding some carbs as discussed. This brings most pc Bg to 100-120 mg/dL as recommended by ADA for GDM. Still sometimes struggling with getting enough nutrition for breakfast. Focuses mostly on protein intake, 15-30g CHO intake for this meal. 1-2 x 15-20g CHO snacks per day. Seems likely that she cont to under eat for , however this is an improvement and per EMR weights, her weight loss has slowed. Denies any emesis for two weeks, which is also an improvement. Endorses good movement and measuring on par with ZULEMA. Anthropometrics: Ht: 66 Wt: 218# at last OB visit on 08/22/21 Prepregnancy wt: 230# Physical Activity: Walks with son to park twice per week. Swims once per week. Self-Monitoring Blood Glucose: FBG 79-94 mg/dL with most readings 88-92. 2 hr pc readings 81-121 mg/dL with most 90-100. 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 Provided appropriate educational handouts. Discussed the following topics: Recent blood sugar results, trends, ADA recs, getting enough nutrition How to add more nutrients to breakfast Aiming for weight stability for remainder of Goals: Aim to be active for 3 days or more per week- met Aim for 30-45g CHO for breakfast- new Follow-up: RDBarber KENTES follow-up in 6 weeks. Overall, GDM mgmgnt is going very well. Hoping she can increase nutrition some to avoid cont weight loss and keep BG in ADA goal range. Encouraged her to call with any questions, concerns, or sooner follow-up. Plan to discuss DM ed info next visit. Trudy Perla RDN, [facility] Certified Diabetes Care and Lot Worker T: [phone] F: [phone] [email or web address] Thank you for this referral
== END ==
PROVIDERS: Referring Provider Obstetrics & Gynecology; Visit Provider Obstetrics & Gynecology
DX: O24.410 Gestational diabetes mellitus in pregnancy, diet controlled (principal); Z3A.24 24 weeks gestation of pregnancy
CPT/HCPCS: 97803

== ENCOUNTER → 2021-09-26 12:04 | Outpatient (CLI) | payer OTHER, SELFPAY ==
[2021-09-26 13:19] LABS: Hematocrit 35.3 % (36-46); Hemoglobin 12.3 g/dL (12.0-16.0)
== END ==
PROVIDERS: Referring Provider Obstetrics & Gynecology; Visit Provider Obstetrics & Gynecology
DX: O26.899 Other specified pregnancy related conditions, unspecified trimester (principal); Z67.91 Unspecified blood type, Rh negative; Z3A.26 26 weeks gestation of pregnancy
CPT/HCPCS: 36415; 85014; 85018; 86850

== ENCOUNTER → 2021-10-11 11:44 | Outpatient (CLI) | payer OTHER, SELFPAY ==
--- NOTE | 2021-10-11 11:46 | DIAB.GDFU ---
Follow-up Gestational Diabetes Assessment Name: Quiana Machado Date: 10/11/21 Time: 110a Dx: Gestational Diabetes Provider: ZULEMA: 12/22/21 Weeks: 29-30 Quiana reports cont in goal FBG and some elevations after meals. These seem mostly related to larger portions during birthday and easter celebrations. Endorses higher carb intake on these days. Endorses reduced sleep with feeling uncomfortable at night. Sometimes may skip dinner if really tired or may take a long nap and not get pc lunch reading. may have a large lunch if she knows she will skip dinner, which results in an elevated BG. Anthropometrics: Ht: 66 Wt: 221# at last OB visit, which is an improvement from losing weight previous weeks. Up 3# Prepregnancy wt: 230# Physical Activity: walks to park still with son but weather dependent. Swim lessons inconsistent recently, so less swimming. last month did go to [place] and did more hiking and walking with family. Son will start soccer soon, which may be an opportunity for her to move more. Using yoga ball daily for bounces. Self-Monitoring Blood Glucose: All FBG in goal. All after breakfast pc readings in range. 1/5 elevated pc lunch and 2/6 elevated pc dinner elevated. Increased nutrients at breakfast: PB toast with sausage and milk or eng muffin with sausage, cheese, coffee with sf creamer, which is indicated in pc BG of 100-120 mg/dL. Date Pre Post Pre Post Pre Post 10/04 89 114 128 Long nap no lunch 10/05 90 114 150 Cake, birthday, long nap 10/06 93 94 118 103 16 85 128 Easter meal 118 10/08 81 103 105 Fell asleep 10/09 84 105 84 119 10/10 89 108 skipped/nap 91 Pertinent Labs: HgA1c 4.7% 1hr screen: 153 H OGTT: 88, 184 H, 170 H, 132 Nutrition Rx: Carbohydrates: 175g [employer] Meal: 45g lunch and dinner; 30-45g breakfast Snack: 15-30g Intervention: This participant was very receptive. Provided appropriate educational handouts. Discussed the following topics: Recent blood sugar results and impact of food Review of how to get adequate nutrients during , including how to schedule meals/snacks when feeling tired. If you have to check 1hour instead of 2hour due to sleepiness, goal if <140 mg/dL Benefits, resources, and nutrition for recommendations for nutrition and physical activity recommendations for T2DM risk reduction OGTT at 6-12 weeks Potential for checking blood sugars twice per week (goal: fasting <100 mg/dL and 2 hour pc <140 mg/dL) until 6 week check-up HgA1c q 1-3 years. what is HgA1c? Goals: Aim for 30-45g CHO for breakfast- met Aim for 4-5pm meal or large snack on days you plan to go to bed early- new Get glucose tolerance test 6 weeks - new Check A1c 6 months after baby comes, then every 1-2 years- new Follow-up: MOR GARCIA follow-up in one month or sooner prn. Trudy Perla RDN, RADHA Certified Diabetes Care and Machine Inker T: [phone] F: [phone] [email or web address] Thank you for this referral
== END ==
PROVIDERS: Referring Provider Obstetrics & Gynecology; Visit Provider Obstetrics & Gynecology
DX: O24.419 Gestational diabetes mellitus in pregnancy, unspecified control (principal); Z3A.29 29 weeks gestation of pregnancy; Z71.3 Dietary counseling and surveillance
CPT/HCPCS: G0108

== ENCOUNTER → 2021-11-08 13:09 | Outpatient (CLI) | payer OTHER, SELFPAY ==
--- NOTE | 2021-11-08 13:24 | DIAB.GDFU ---
Follow-up Gestational Diabetes Assessment Name: Quiana Machado Date: 11/08/21 Time: 1-115p Dx: Gestational Diabetes Provider: Elzbieta ZULEMA: 12/22/21 Weeks:33-34 Quiana presents for virtual follow-up via [employer] platform. Today's appt is mainly to check in on how BG are diet are going. States she is no longer skipping meals. Weight seems to be increasing instead of decreasing. Reports adequate food choices and well managed BG. Confirms understanding of T2DM risk and risk reduction recs, hgA1c, and OGTT . Anthropometrics: Ht: 66 Wt: 228# Prepregnancy wt: 230# Physical Activity: Limited. still doing yoga ball bounces q night. Walking 1-2 x per week. Some walking at son's soccer game. Self-Monitoring Blood Glucose: Last two weeks, no FBG elevations (highest reading 92mg/dL), no pc elevations (highest reading 119 mg/dL after enchiladas for dinner). 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 Provided appropriate educational handouts. Discussed the following topics: Recent blood sugar trends recommendations for nutrition and physical activity recommendations for T2DM risk reduction Physical activity plan and progress Goals: Aim for 4-5pm meal or large snack on days you plan to go to bed early- d/c Get glucose tolerance test 6 weeks - continue Check A1c 6 months after baby comes, then every 1-2 years- continue Follow-up: MOR GARCIA follow-up darlene Perla RDN, RADHA Certified Diabetes Care and Library Acquisitions Technician T: [phone] F: [phone] [email or web address] Thank you for this referral
== END ==
PROVIDERS: Referring Provider Obstetrics & Gynecology; Visit Provider Obstetrics & Gynecology
DX: O24.419 Gestational diabetes mellitus in pregnancy, unspecified control (principal); Z3A.33 33 weeks gestation of pregnancy; Z71.3 Dietary counseling and surveillance
CPT/HCPCS: 97803

== ENCOUNTER → 2021-11-10 13:55 | Outpatient (CLI) | payer OTHER, SELFPAY ==
[2021-11-10 14:23] LABS: Hematocrit 34.9 % (36-46); Hemoglobin 12.1 g/dL (12.0-16.0); Mean Corpuscular HGB Conc 34.6 % (30-36); Mean Corpuscular Hemoglobin 27.7 PG (26-34); Platelet Count 389 X10^3/uL (150-400); Red Blood Cell Count 4.36 X10^6/uL (4.0-5.2); Red Cell Distribution Width 13.7 % (11.6-14.8); White Blood Cell Count 10.3 X10^3/uL (4.5-11.0)
[2021-11-10 14:34] LABS: Alanine Aminotransferase 62 IU/L (<35); Albumin 3.7 g/dL (3.5-5.0); Albumin Globulin Ratio 1.1 (1.0-2.8); Alkaline Phosphatase 93 U/L (38-126); Aspartate Aminotransferase 42 IU/L (14-36); BUN Creatinine Ratio 9.9 (6-22); Bilirubin Total 0.8 mg/dL (0.2-1.3); Blood Urea Nitrogen 8 mg/dL (7-17); Calcium 9.1 mg/dL (8.4-10.2); Carbon Dioxide 23 mmol/L (22-32); Chloride 106 mmol/L (98-107); Estimated Glomerular Filt Rate > 60 mL/min (>60); Globulin 3.4 g/dL (1.7-4.1); Glucose 102 mg/dL (70-100); HEMOLYSIS < 15 (0-50); Lactate Dehydrogenase 335 U/L (313-618); Sodium 136 mmol/L (137-145); Total Protein 7.1 g/dL (6.3-8.2); Uric Acid 5.5 mg/dL (2.5-6.2)
[2021-11-10 16:51] LABS: Creatinine Urine Random 244.4 mg/dL; Protein (Total) Urine Random 8 mg/dL (0-12); Protein Creatinine Ratio Urine 0.03 GRAM/24H
== END ==
PROVIDERS: Referring Provider Obstetrics & Gynecology; Visit Provider Obstetrics & Gynecology
DX: Z87.59 Personal history of other complications of pregnancy, childbirth and the puerperium (principal)
CPT/HCPCS: 36415; 80053; 82570; 83615; 84156; 84550; 85027

== ENCOUNTER 2021-11-10 15:51 | Outpatient (CLI) | payer OTHER, SELFPAY ==
--- NOTE | 2021-11-10 16:44 | DI.US.S_ITS ---
PROCEDURE: US OB BIOPHYSICAL PROFILE INDICATIONS: pih and variables in nst OUTSIDE/PRIOR DATING DATA: Last menstrual period (LMP): Unknown LMP-based estimated date of delivery (ZULEMA): Unknown First dating scan (date and location): 05/03/2021 Estimated date of delivery (ZULEMA) from first dating scan: 12/22/2020. TECHNIQUE: Real-time scanning was performed of the fetus for biophysical profile, with image documentation. Endovaginal scanning: Not indicated COMPARISON: [facility], US OB >= 14 WEEKS FETUS, 08/07/2021, 9:34. [facility], US OB >= 14 WEEKS FETUS, 10/26/2021, 13:34. FINDINGS: General: A single living intrauterine gestation is present. Presentation: Cephalic Placenta: Placental position is right posterior, without previa. Amniotic fluid index: 16.7 cm, normal range is 5-24 cm. Single deepest vertical pocket is 5.9 cm. heart rate: 133 beats per minute. Maternal cervical canal: 3 cm long. Normal lower limit is 2.5 cm. Clinically estimated gestational age: Not available Estimated gestational age from initial scan: 34 weeks, 0 day. Biophysical profile: Tone: 2 points. Movement: 2 points. Respiration: 2 points. Largest pocket of fluid: 2 points. IMPRESSION: 1. Single live intrauterine gestation with fetus in vertex presentation. heart rate is 133 beats per minute. Normal amount of amniotic fluid. 2. biophysical profile score is 8/8. We strive to produce accurate, complete, and clear reports of imaging services. To assist us in improving patient care, this report was composed using standard report templates and voice recognition software. Therefore, it may contain abnormal punctuation, insertions and/or omissions. Occasional wrong-word or sound-alike substitutions may occur. Though we review the report and make efforts to correct it, we do recommend that the report be read carefully in proper context to recognize any text inaccuracies. Dictated by: Wiley Tran M.D. on 11/10/2021 at 17:32 Approved by: Wiley Tran M.D. on 11/10/2021 at 17:35
--- NOTE | 2021-11-10 17:27 | PM.OBTRLD ---
Visit Information Visit Information Date of evaluation: 11/10/21 Primary OB Provider: Kirstie Ruff Reason for Evaluation: Yes non-stress test Comments/Additional reasons for admission: This patient is a P1 @34+0 presenting for NST with a history of GDMA1 in this and preeclampsia in her last. elevated BP at home. Vital Signs Vital Signs: 131-138/84-88, HR 80s PFSH Medical History Anxiety (~2012) Depression (~2010) Gestational diabetes mellitus (GDM) affecting first Hemorrhoid (~2018) Hypertension Irregular menstrual cycle (~2016) Preeclampsia Surgical History Anesthesia History of dental surgery (~2004) Family History Grandfather Cancer History of heart disease Hypertension Grandmother Cervical cancer Lung cancer Hypertension Hyperlipidemia Mental health problem Grandfather Lung cancer Father Mental health problem Mother Mental health problem Lupus Brother Mental health problem Sister Mental health problem Sister Mental health problem Grandmother Dementia Social History marital status: household members: spouse and children (1 child) caregiver/support person: Yes housing: other (base housing) pets and animals: Yes (cat and aware, dog) occupational status: unemployed current occupational exposures/hazards: No travel history: other (None) seatbelt use: always water heater temp set < 120 deg: Yes working smoke detector in home: Yes fire extinguisher in home: Yes carbon monox detector in home: Yes firearms in home: No do you feel safe at home: Yes Smoking Status: Never smoker second hand exposure: No substance use type: does not use during the past year weight has: remained stable well-balanced diet: daily or most days daily servings fruits/ve or more times/day caffeine: Yes (rarely) eating out: 1-3 times/week Type(s) of exercise: walking frequency: 1-2 times per week Evaluation Evaluation Baseline heart rate: 130 Variability: Moderate (11-25) monitor accelerations: Present Monitor Decelerations: Absent Category of Tracing: Reactive Status: Category l Diagnosis, Plan/Disposition Plan/Disposition Plan: Patient feeling well, BPP wnl, PIH labs wnl except for mildly elevated LFTs. Discharged for BP/Lab f/u Saturday. OB Disposition: home
== END 2021-11-10 17:20 | disposition home or self-care (01) ==
LOC: LABOR 18:02 → OB 11-13 16:02
PROVIDERS: PCP Physician Assistant; Referring Provider Obstetrics & Gynecology; Visit Provider Obstetrics & Gynecology
DX: O26.853 Spotting complicating pregnancy, third trimester (principal); O26.893 Other specified pregnancy related conditions, third trimester; R03.0 Elevated blood-pressure reading, without diagnosis of hypertension; Z3A.32 32 weeks gestation of pregnancy; Z87.59 Personal history of other complications of pregnancy, childbirth and the puerperium
CPT/HCPCS: 36415; 59025; 76819; 80053; 82570; 83615; 84156; 84550; 85027; G0378; G0379

== ENCOUNTER 2021-11-13 17:02 | Outpatient (CLI) | payer OTHER, SELFPAY ==
[2021-11-13 17:40] LABS: Add Manual Diff / Slide Review NO; Basophils Absolute Auto 100 /uL (0-100); Basophils Percent Auto 0.8 % (0-2); Eosinophils Absolute Auto 0 /uL (0-450); Eosinophils Percent Auto 0.4 % (2-4); Hematocrit 32.8 % (36-46); Hemoglobin 11.6 g/dL (12.0-16.0); Lymphocytes Absolute Auto 2100 /uL (1100-4500); Lymphocytes Percent Auto 24.9 % (25-40); Mean Corpuscular HGB Conc 35.2 % (30-36); Mean Corpuscular Hemoglobin 28.3 PG (26-34); Mean Corpuscular Volume 80.5 fL (80-100); Monocytes Absolute Auto 500 /uL (0-900); Monocytes Percent Auto 5.5 % (3-14); Neutrophils Absolute Auto 5800 /uL (1500-7000); Neutrophils Percent Auto 68.4 % (50-75); Platelet Count 336 X10^3/uL (150-400); Red Blood Cell Count 4.08 X10^6/uL (4.0-5.2); Red Cell Distribution Width 13.5 % (11.6-14.8); White Blood Cell Count 8.5 X10^3/uL (4.5-11.0)
[2021-11-13 17:53] LABS: Alanine Aminotransferase 72 IU/L (<35); Albumin 3.5 g/dL (3.5-5.0); Albumin Globulin Ratio 1.1 (1.0-2.8); Alkaline Phosphatase 95 U/L (38-126); Aspartate Aminotransferase 54 IU/L (14-36); BUN Creatinine Ratio 15.1 (6-22); Bilirubin Total 0.6 mg/dL (0.2-1.3); Blood Urea Nitrogen 8 mg/dL (7-17); Calcium 8.6 mg/dL (8.4-10.2); Carbon Dioxide 22 mmol/L (22-32); Chloride 106 mmol/L (98-107); Estimated Glomerular Filt Rate > 60 mL/min (>60); Globulin 3.2 g/dL (1.7-4.1); Glucose 95 mg/dL (70-100); HEMOLYSIS 17 (0-50); Lactate Dehydrogenase 367 U/L (313-618); Potassium 4.1 mmol/L (3.4-5.1); Sodium 136 mmol/L (137-145); Total Protein 6.7 g/dL (6.3-8.2); Uric Acid 5.4 mg/dL (2.5-6.2)
--- NOTE | 2021-11-13 18:03 | P.TNLD_ITS ---
Visit Information Visit Information Date of evaluation: 11/13/21 Primary OB Provider: Kirstie Ruff Reason for Evaluation: Yes non-stress test Comments/Additional reasons for admission: Sent for NSTs for tachycardia in the setting of copious movement. No other symptoms or concerns today. Vital Signs Vital Signs: 129/80 [facility] Medical History Anxiety (~2012) Depression (~2010) Gestational diabetes mellitus (GDM) affecting first Hemorrhoid (~2018) Hypertension Irregular menstrual cycle (~2016) Preeclampsia Surgical History Anesthesia History of dental surgery (~2004) Family History Grandfather Cancer History of heart disease Hypertension Grandmother Cervical cancer Lung cancer Hypertension Hyperlipidemia Mental health problem Grandfather Lung cancer Father Mental health problem Mother Mental health problem Lupus Brother Mental health problem Sister Mental health problem Sister Mental health problem Grandmother Dementia Social History marital status: household members: spouse and children (1 child) caregiver/support person: Yes housing: other (base housing) pets and animals: Yes (cat and aware, dog) occupational status: unemployed current occupational exposures/hazards: No travel history: other (None) seatbelt use: always water heater temp set < 120 deg: Yes working smoke detector in home: Yes fire extinguisher in home: Yes carbon monox detector in home: Yes firearms in home: No do you feel safe at home: Yes Smoking Status: Never smoker second hand exposure: No substance use type: does not use during the past year weight has: remained stable well-balanced diet: daily or most days daily servings fruits/ve or more times/day caffeine: Yes (rarely) eating out: 1-3 times/week Type(s) of exercise: walking frequency: 1-2 times per week Objective Labs Result Diagrams: 11/13/21 17:10 11/13/21 17:10 Labs: Laboratory Results - last 24 hr 11/13/21 11/13/21 17:10 17:10 WBC 8.5 RBC 4.08 Hgb 11.6 L Hct 32.8 L MCV 80.5 MCH 28.3 MCHC 35.2 RDW 13.5 Plt Count 336 Neut % (Auto) 68.4 Lymph % (Auto) 24.9 L [place] % (Auto) 5.5 Eos % (Auto) 0.4 L Baso % (Auto) 0.8 Neut # (Auto) 5800 Lymph # (Auto) 2100 [place] # (Auto) 500 Eos # (Auto) 0 Baso # (Auto) 100 Sodium 136 L Potassium 4.1 Chloride 106 Carbon Dioxide 22 BUN 8 Creatinine 0.53 Estimated GFR > 60 BUN/Creatinine Ratio 15.1 Glucose 95 Uric Acid 5.4 Calcium 8.6 Total Bilirubin 0.6 AST 54 H ALT 72 H Alkaline Phosphatase 95 Lactate Dehydrogenase 367 Total Protein 6.7 Albumin 3.5 Globulin 3.2 Albumin/Globulin Ratio 1.1 Evaluation Evaluation Baseline heart rate: 155 Variability: Marked (>25) monitor accelerations: Present Monitor Decelerations: Absent Category of Tracing: Reactive Status: Category l Diagnosis, Plan/Disposition Plan/Disposition Plan: Home with precautions. Repeat labs pending. OB Disposition: home
== END 2021-11-13 17:40 | disposition home or self-care (01) ==
LOC: OB 11-16 07:12
PROVIDERS: PCP Physician Assistant; Referring Provider Obstetrics & Gynecology; Visit Provider Obstetrics & Gynecology
DX: O36.8330 Maternal care for abnormalities of the fetal heart rate or rhythm, third trimester, not applicable or unspecified (principal); O13.3 Gestational [pregnancy-induced] hypertension without significant proteinuria, third trimester; Z3A.34 34 weeks gestation of pregnancy
CPT/HCPCS: 36415; 59025; 80053; 83615; 84550; 85025; G0378; G0379

== ENCOUNTER → 2021-11-21 16:19 | Outpatient (CLI) | payer OTHER, SELFPAY ==
[2021-11-21 16:48] LABS: Add Manual Diff / Slide Review NO; Basophils Absolute Auto 100 /uL (0-100); Basophils Percent Auto 0.6 % (0-2); Eosinophils Absolute Auto 0 /uL (0-450); Eosinophils Percent Auto 0.5 % (2-4); Hematocrit 35.1 % (36-46); Hemoglobin 12.4 g/dL (12.0-16.0); Lymphocytes Absolute Auto 2300 /uL (1100-4500); Lymphocytes Percent Auto 24.7 % (25-40); Mean Corpuscular HGB Conc 35.3 % (30-36); Mean Corpuscular Hemoglobin 28.1 PG (26-34); Mean Corpuscular Volume 79.8 fL (80-100); Monocytes Absolute Auto 600 /uL (0-900); Monocytes Percent Auto 6.5 % (3-14); Neutrophils Absolute Auto 6300 /uL (1500-7000); Neutrophils Percent Auto 67.7 % (50-75); Platelet Count 345 X10^3/uL (150-400); Red Blood Cell Count 4.39 X10^6/uL (4.0-5.2); Red Cell Distribution Width 13.8 % (11.6-14.8); White Blood Cell Count 9.3 X10^3/uL (4.5-11.0)
[2021-11-21 17:07] LABS: Alanine Aminotransferase 62 IU/L (<35); Albumin 3.7 g/dL (3.5-5.0); Albumin Globulin Ratio 1.1 (1.0-2.8); Alkaline Phosphatase 104 U/L (38-126); Aspartate Aminotransferase 45 IU/L (14-36); Bilirubin Total 0.5 mg/dL (0.2-1.3); Blood Urea Nitrogen 8 mg/dL (7-17); Calcium 9.1 mg/dL (8.4-10.2); Carbon Dioxide 20 mmol/L (22-32); Chloride 107 mmol/L (98-107); Estimated Glomerular Filt Rate > 60 mL/min (>60); Globulin 3.4 g/dL (1.7-4.1); Glucose 102 mg/dL (70-100); HEMOLYSIS < 15 (0-50); Lactate Dehydrogenase 340 U/L (313-618); Potassium 4.3 mmol/L (3.4-5.1); Sodium 136 mmol/L (137-145); Total Protein 7.1 g/dL (6.3-8.2); Uric Acid 5.2 mg/dL (2.5-6.2)
[2021-11-21 19:03] LABS: Creatinine Urine Random 139.4 mg/dL; Protein (Total) Urine Random 16 mg/dL (0-12); Protein Creatinine Ratio Urine 0.11 GRAM/24H
== END ==
PROVIDERS: PCP Physician Assistant; Referring Provider Obstetrics & Gynecology; Visit Provider Obstetrics & Gynecology
DX: Z87.59 Personal history of other complications of pregnancy, childbirth and the puerperium (principal)
CPT/HCPCS: 36415; 80053; 82570; 83615; 84156; 84550; 85025

== ENCOUNTER 2021-11-21 16:21 | Outpatient (CLI) | payer OTHER, SELFPAY ==
--- NOTE | 2021-11-21 17:34 | PM.OBTRLD ---
Visit Information Visit Information Date of evaluation: 11/21/21 Primary OB Provider: Kirstie Ruff Reason for Evaluation: Yes non-stress test Comments/Additional reasons for admission: THis patient is a 26yo @35+4 with GDMA1 and now gHTN, presenting for an NST. Denies PIH symptoms. Vital Signs Vital Signs: 125-132/88-90, HR 80s PFSH Medical History Anxiety (~2012) Depression (~2010) Gestational diabetes mellitus (GDM) affecting first Hemorrhoid (~2018) Hypertension Irregular menstrual cycle (~2016) Preeclampsia Surgical History Anesthesia History of dental surgery (~2004) Family History Grandfather Cancer History of heart disease Hypertension Grandmother Cervical cancer Lung cancer Hypertension Hyperlipidemia Mental health problem Grandfather Lung cancer Father Mental health problem Mother Mental health problem Lupus Brother Mental health problem Sister Mental health problem Sister Mental health problem Grandmother Dementia Social History marital status: household members: spouse and children (1 child) caregiver/support person: Yes housing: other (base housing) pets and animals: Yes (cat and aware, dog) occupational status: unemployed current occupational exposures/hazards: No travel history: other (None) seatbelt use: always water heater temp set < 120 deg: Yes working smoke detector in home: Yes fire extinguisher in home: Yes carbon monox detector in home: Yes firearms in home: No do you feel safe at home: Yes Smoking Status: Never smoker second hand exposure: No substance use type: does not use during the past year weight has: remained stable well-balanced diet: daily or most days daily servings fruits/ve or more times/day caffeine: Yes (rarely) eating out: 1-3 times/week Type(s) of exercise: walking frequency: 1-2 times per week Evaluation Evaluation Baseline heart rate: 130 Variability: Moderate (11-25) monitor accelerations: Present Monitor Decelerations: Absent Category of Tracing: Reactive Status: Category l Diagnosis, Plan/Disposition Plan/Disposition Plan: Discussed diagnosis of gestational hypertension and started patient on labetalol 100mg BID. 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 Precautions for return and close follow up discussed, with biweekly testing planned. OB Disposition: home
== END 2021-11-21 17:30 | disposition home or self-care (01) ==
LOC: LABOR 16:47 → OB 11-22 14:30
PROVIDERS: PCP Physician Assistant; Referring Provider Obstetrics & Gynecology; Visit Provider Obstetrics & Gynecology
DX: O24.419 Gestational diabetes mellitus in pregnancy, unspecified control (principal); O13.3 Gestational [pregnancy-induced] hypertension without significant proteinuria, third trimester; Z3A.35 35 weeks gestation of pregnancy; Z87.59 Personal history of other complications of pregnancy, childbirth and the puerperium
CPT/HCPCS: 36415; 59025; 80053; 82570; 83615; 84156; 84550; 85025; G0378; G0379

== ENCOUNTER 2021-11-25 12:23 | Outpatient (CLI) | payer OTHER, SELFPAY | END 2021-11-25 13:05 | disposition home or self-care (01) | LOC: LABOR 12:55 → OB 11-27 10:22 | PROVIDERS: PCP Physician Assistant; Referring Provider Obstetrics & Gynecology; Visit Provider Obstetrics & Gynecology | DX: O13.3 Gestational [pregnancy-induced] hypertension without significant proteinuria, third trimester (principal); Z3A.36 36 weeks gestation of pregnancy | CPT/HCPCS: 59025; G0378; G0379 ==

== ENCOUNTER → 2021-11-27 14:28 | Outpatient (CLI) | payer OTHER, SELFPAY ==
[2021-11-27 15:16] LABS: Add Manual Diff / Slide Review NO; Basophils Absolute Auto 0 /uL (0-100); Basophils Percent Auto 0.3 % (0-2); Eosinophils Absolute Auto 0 /uL (0-450); Eosinophils Percent Auto 0.4 % (2-4); Hematocrit 35.3 % (36-46); Lymphocytes Absolute Auto 2000 /uL (1100-4500); Lymphocytes Percent Auto 21.4 % (25-40); Mean Corpuscular Hemoglobin 27.4 PG (26-34); Mean Corpuscular Volume 80.6 fL (80-100); Monocytes Absolute Auto 500 /uL (0-900); Monocytes Percent Auto 5.8 % (3-14); Neutrophils Absolute Auto 6700 /uL (1500-7000); Neutrophils Percent Auto 72.1 % (50-75); Platelet Count 343 X10^3/uL (150-400); Red Blood Cell Count 4.38 X10^6/uL (4.0-5.2); Red Cell Distribution Width 13.9 % (11.6-14.8); White Blood Cell Count 9.3 X10^3/uL (4.5-11.0)
[2021-11-27 15:38] LABS: Alanine Aminotransferase 63 IU/L (<35); Albumin 3.7 g/dL (3.5-5.0); Albumin Globulin Ratio 1.1 (1.0-2.8); Alkaline Phosphatase 119 U/L (38-126); Aspartate Aminotransferase 46 IU/L (14-36); BUN Creatinine Ratio 14.1 (6-22); Bilirubin Total 0.6 mg/dL (0.2-1.3); Blood Urea Nitrogen 9 mg/dL (7-17); Calcium 9.1 mg/dL (8.4-10.2); Carbon Dioxide 20 mmol/L (22-32); Chloride 108 mmol/L (98-107); Estimated Glomerular Filt Rate > 60 mL/min (>60); Globulin 3.4 g/dL (1.7-4.1); Glucose 88 mg/dL (70-100); HEMOLYSIS < 15 (0-50); Lactate Dehydrogenase 361 U/L (313-618); Potassium 4.3 mmol/L (3.4-5.1); Sodium 134 mmol/L (137-145); Total Protein 7.1 g/dL (6.3-8.2); Uric Acid 5.9 mg/dL (2.5-6.2)
[2021-11-28 14:07] LABS: Strep Grp B PCR NEG for Grp B Strep
== END ==
PROVIDERS: PCP Physician Assistant; Referring Provider Obstetrics & Gynecology; Visit Provider Obstetrics & Gynecology
DX: O13.9 Gestational [pregnancy-induced] hypertension without significant proteinuria, unspecified trimester (principal); Z3A.36 36 weeks gestation of pregnancy
CPT/HCPCS: 36415; 80053; 83615; 84550; 85025; 87653

== ENCOUNTER 2021-11-30 09:51 | Outpatient (CLI) | payer OTHER, SELFPAY ==
--- NOTE | 2021-11-30 10:28 | P.TNLD_ITS ---
Visit Information Visit Information Date of evaluation: 11/30/21 Primary OB Provider: Kirstie Ruff Reason for Evaluation: Yes non-stress test Comments/Additional reasons for admission: This patient is a 26yo P1 #36+6 with GDMA1 and gHTN, presenting for a scheduled NST. Patient scheduled for IOL in 37th wk. Vital Signs Vital Signs: 118/81 [facility] Medical History Anxiety (~2012) Depression (~2010) Gestational diabetes mellitus (GDM) affecting first Hemorrhoid (~2018) Hypertension Irregular menstrual cycle (~2016) Preeclampsia Surgical History Anesthesia History of dental surgery (~2004) Family History Grandfather Cancer History of heart disease Hypertension Grandmother Cervical cancer Lung cancer Hypertension Hyperlipidemia Mental health problem Grandfather Lung cancer Father Mental health problem Mother Mental health problem Lupus Brother Mental health problem Sister Mental health problem Sister Mental health problem Grandmother Dementia Social History marital status: household members: spouse and children (1 child) caregiver/support person: Yes housing: other (base housing) pets and animals: Yes (cat and aware, dog) occupational status: unemployed current occupational exposures/hazards: No travel history: other (None) seatbelt use: always water heater temp set < 120 deg: Yes working smoke detector in home: Yes fire extinguisher in home: Yes carbon monox detector in home: Yes firearms in home: No do you feel safe at home: Yes Smoking Status: Never smoker second hand exposure: No substance use type: does not use during the past year weight has: remained stable well-balanced diet: daily or most days daily servings fruits/ve or more times/day caffeine: Yes (rarely) eating out: 1-3 times/week Type(s) of exercise: walking frequency: 1-2 times per week Evaluation Evaluation Baseline heart rate: 140 Variability: Moderate (11-25) monitor accelerations: Present Monitor Decelerations: Absent Category of Tracing: Reactive Status: Category l Diagnosis, Plan/Disposition Plan/Disposition Plan: Home with scheduled precautions. OB Disposition: home
== END 2021-11-30 10:30 | disposition home or self-care (01) ==
LOC: LABOR 09:59 → OB 12-04 10:51
PROVIDERS: PCP Physician Assistant; Referring Provider Obstetrics & Gynecology; Visit Provider Obstetrics & Gynecology
DX: O24.419 Gestational diabetes mellitus in pregnancy, unspecified control (principal); O13.3 Gestational [pregnancy-induced] hypertension without significant proteinuria, third trimester; Z3A.36 36 weeks gestation of pregnancy
CPT/HCPCS: 59025; G0378; G0379

== ENCOUNTER 2021-12-06 17:20 | Outpatient (CLI) | payer OTHER, SELFPAY | END 2021-12-06 20:00 | disposition home or self-care (01) | LOC: OB 12-07 09:33 | PROVIDERS: PCP Physician Assistant; Referring Provider Obstetrics & Gynecology; Visit Provider Obstetrics & Gynecology | DX: O13.3 Gestational [pregnancy-induced] hypertension without significant proteinuria, third trimester (principal); Z3A.37 37 weeks gestation of pregnancy | CPT/HCPCS: 59025; G0378; G0379 ==

== ENCOUNTER 2021-12-09 18:01 | Inpatient (IN) | payer OTHER, SELFPAY ==
[2021-12-09 18:57] LABS: Add Manual Diff / Slide Review NO; Basophils Absolute Auto 100 /uL (0-100); Basophils Percent Auto 0.6 % (0-2); Eosinophils Absolute Auto 0 /uL (0-450); Eosinophils Percent Auto 0.4 % (2-4); Hematocrit 35.1 % (36-46); Hemoglobin 12.3 g/dL (12.0-16.0); Lymphocytes Absolute Auto 1800 /uL (1100-4500); Lymphocytes Percent Auto 19.2 % (25-40); Mean Corpuscular Hemoglobin 27.8 PG (26-34); Mean Corpuscular Volume 79.3 fL (80-100); Monocytes Absolute Auto 700 /uL (0-900); Monocytes Percent Auto 7.4 % (3-14); Neutrophils Absolute Auto 6800 /uL (1500-7000); Neutrophils Percent Auto 72.4 % (50-75); Platelet Count 332 X10^3/uL (150-400); Red Blood Cell Count 4.43 X10^6/uL (4.0-5.2); Red Cell Distribution Width 13.8 % (11.6-14.8); White Blood Cell Count 9.4 X10^3/uL (4.5-11.0)
[2021-12-09 19:07] LABS: Alanine Aminotransferase 34 IU/L (<35); Albumin 3.7 g/dL (3.5-5.0); Alkaline Phosphatase 126 U/L (38-126); Aspartate Aminotransferase 36 IU/L (14-36); Bilirubin Total 0.7 mg/dL (0.2-1.3); Blood Urea Nitrogen 13 mg/dL (7-17); Calcium 9.1 mg/dL (8.4-10.2); Carbon Dioxide 20 mmol/L (22-32); Chloride 106 mmol/L (98-107); Estimated Glomerular Filt Rate > 60 mL/min (>60); Globulin 3.6 g/dL (1.7-4.1); Glucose 93 mg/dL (70-100); HEMOLYSIS < 15 (0-50); Lactate Dehydrogenase 377 U/L (313-618); Potassium 4.2 mmol/L (3.4-5.1); Sodium 135 mmol/L (137-145); Total Protein 7.3 g/dL (6.3-8.2); Uric Acid 6.2 mg/dL (2.5-6.2)
[2021-12-09 19:17] VITALS: BP 142/92
[2021-12-09] MEDS: DINOPROSTONE VAG (CERVIDIL) 10 MG VAG (19:45)
[2021-12-09 20:14] LABS: Creatinine Urine Random 96.1 mg/dL; Protein (Total) Urine Random 34 mg/dL (0-12); Protein Creatinine Ratio Urine 0.35 GRAM/24H
[2021-12-09 20:17] LABS: Add Manual Diff / Slide Review NO; Basophils Absolute Auto 100 /uL (0-100); Basophils Percent Auto 0.6 % (0-2); Eosinophils Absolute Auto 100 /uL (0-450); Eosinophils Percent Auto 0.5 % (2-4); Hematocrit 34.8 % (36-46); Hemoglobin 12.1 g/dL (12.0-16.0); Lymphocytes Absolute Auto 2300 /uL (1100-4500); Lymphocytes Percent Auto 21.5 % (25-40); Mean Corpuscular HGB Conc 34.7 % (30-36); Mean Corpuscular Hemoglobin 27.6 PG (26-34); Mean Corpuscular Volume 79.5 fL (80-100); Monocytes Absolute Auto 700 /uL (0-900); Monocytes Percent Auto 6.5 % (3-14); Neutrophils Absolute Auto 7400 /uL (1500-7000); Neutrophils Percent Auto 70.9 % (50-75); Platelet Count 331 X10^3/uL (150-400); Red Blood Cell Count 4.38 X10^6/uL (4.0-5.2); White Blood Cell Count 10.5 X10^3/uL (4.5-11.0)
[2021-12-09 20:19] LABS: COVID19 -Nasal RAPID Negative (Negative)
[2021-12-09] MEDS: LABETALOL 20 MG/4 ML SYRINGE 10 MG IV (23:36)
[2021-12-09] MEDS: TERBUTALINE 1 MG/ML VIAL 0.25 MG SUBCUT (23:38)
--- NOTE | 2021-12-10 00:47 | P.HPOB_ITS ---
OB HPI Date/Time Date of admission: 12/09/21 Date Patient Seen: 12/10/21 Time Patient Seen: 00:10 History of Present Condition Chief complaint: Labor : 2 Para: 1 Estimated Date of Delivery: 12/22/21 Estimated Gestational Age (weeks): 38+1 Narrative: Quiana Machado is a 26 year old admitted at 38+1 weeks EGA for cervical ripening and induction due to well controlled GDMA1 and gestational hypertension managed with labetalol 100 mg PO daily. Patient is Rh NEG and received Rhogam at 28 weeks. PNC has largely been unremarkable and BS's under good control at home. Prior delivery induced and treated with MgSO4 for PEC w/ severe features. GBS is negative. Indications Indication for induction OB: gestational HTN/pre-eclampsia and gestational diabetes History of Present care: good care Dating criteria: LMP confirmed by 1st trimester US Ultrasounds: normal 1st trimester US and normal mid trimester US Obstetrical complications: gestational diabetes and gestational hypertension Medical complications: none Preadmission Labs Blood type: A (-) negative -: Antibody screen: negative, GBS status: negative, HBsAG: negative, HIV: negative and RPR/VDLR: negative -: Chlamydia screen: not detected and Gonorrhea screen: not detected -: Rubella: not immune and Varicella: immune HCT: 34.8 HCAB: negative PAP: Normal Quad screen: Normal 1 hr GTT: 153 3 hr GTT: 1 hr (184), 2 hr (170) and 3 hr (132) Fasting blood glucose: 88 Prior (ies) History: x 1; PEC w/ severe features, MgSO4 Evaluation Evaluation Baseline heart rate: 150 Variability: Moderate (11-25) monitor accelerations: Present Monitor Decelerations: Episodic and Variable Contraction Frequency (minutes): 3 Uterine Contraction Intensity: Strong/Firm Category of Tracing: Reactive Status: Category ll Dilation (cm): 9 Effacement (%): 100 Dilation: >/=5 cm Effacement: >/=80% station: +1 Position of cervix: anterior Consistency: soft Prieto score: 13 Non-invasive Membranes Rupture Test: positive Comments: SROM shortly after placement of Cervidil, 12/09/2021 [facility] Medical History Anxiety (~2013) Depression (~2010) Gestational diabetes mellitus (GDM) affecting first Hemorrhoid (~2018) Hypertension Irregular menstrual cycle (~2016) Preeclampsia Surgical History Anesthesia History of dental surgery (~2004) Family History Grandfather Cancer History of heart disease Hypertension Grandmother Cervical cancer Lung cancer Hypertension Hyperlipidemia Mental health problem Grandfather Lung cancer Father Mental health problem Mother Mental health problem Lupus Brother Mental health problem Sister Mental health problem Sister Mental health problem Grandmother Dementia Social History marital status: household members: spouse and children (1 child) caregiver/support person: Yes housing: other (base housing) pets and animals: Yes (cat and aware, dog) occupational status: unemployed current occupational exposures/hazards: No travel history: other (None) seatbelt use: always water heater temp set < 120 deg: Yes working smoke detector in home: Yes fire extinguisher in home: Yes carbon monox detector in home: Yes firearms in home: No do you feel safe at home: Yes Smoking Status: Never smoker second hand exposure: No substance use type: does not use during the past year weight has: remained stable well-balanced diet: daily or most days daily servings fruits/ve or more times/day caffeine: Yes (rarely) eating out: 1-3 times/week Type(s) of exercise: walking frequency: 1-2 times per week Meds Home Medications and Allergies Home Medications Medication Instructions Recorded Confirmed Type fluoxetine 20 mg capsule 20 mg PO DAILY 05/15/21 12/09/21 History prenat.vits,taiwo,qui-trwi-xjrmj 1 tab PO DAILY 05/15/21 12/09/21 History blood-glucose meter #1 ea 06/30/21 12/09/21 Rx blood sugar diagnostic (FreeStyle #300 strips 09/07/21 12/09/21 Rx Lite Strips) labetalol 100 mg tablet 100 mg PO DAILY gestational 11/23/21 12/09/21 Rx hypertension #90 tabs Allergies Allergy/AdvReac Type Severity Reaction Status Date / Time No Known Drug Allergies Allergy Verified 12/05/21 13:35 Review of Systems Review of Systems Narrative: Problem-specific ROS positives included in HPI OB Exam HENMT Head: normal to inspection, normocephalic and atraumatic Eyes General: appearance normal, both eyes and all related structures Resp Effort & Inspection: normal respiratory effort and able to speak in complete sentences Auscultation: clear to auscultation bilaterally Cardio Rate: regular rate Rhythm: regular rhythm Heart Sounds: S1 normal, S2 normal and no murmurs Extremities Lower extremity: Yes normal to inspection GI Inspection: normal to inspection Palpation: Yes soft and Yes no hepatosplenomegaly Uterus Location (Fundal Height): 36 Presentation: vertex Estimated Weight (lbs): 7 Amniotic Fluid: clear Objective Labs Result Diagrams: 12/09/21 20:11 12/09/21 18:30 Labs: Laboratory Results - last 24 hr 12/09/21 12/09/21 12/09/21 18:30 18:30 18:30 WBC 9.4 RBC 4.43 Hgb 12.3 Hct 35.1 L MCV 79.3 L MCH 27.8 MCHC 35.0 RDW 13.8 Plt Count 332 Neut % (Auto) 72.4 Lymph % (Auto) 19.2 L [place] % (Auto) 7.4 Eos % (Auto) 0.4 L Baso % (Auto) 0.6 Neut # (Auto) 6800 Lymph # (Auto) 1800 [place] # (Auto) 700 Eos # (Auto) 0 Baso # (Auto) 100 Sodium 135 L Potassium 4.2 Chloride 106 Carbon Dioxide 20 L BUN 13 Creatinine 0.59 Estimated GFR > 60 BUN/Creatinine Ratio 22.0 Glucose 93 Uric Acid 6.2 Calcium 9.1 Total Bilirubin 0.7 AST 36 ALT 34 Alkaline Phosphatase 126 Lactate Dehydrogenase 377 Total Protein 7.3 Albumin 3.7 Globulin 3.6 Albumin/Globulin Ratio 1.0 U Random Total Protein Urine Creatinine Protein/Creatinin Ratio SARS-CoV-2 (PCR) Blood Type A Negative Antibody Screen Negative 12/09/21 12/09/21 12/09/21 18:30 19:19 20:11 WBC 10.5 RBC 4.38 Hgb 12.1 Hct 34.8 L MCV 79.5 L MCH 27.6 MCHC 34.7 RDW 14.0 Plt Count 331 Neut % (Auto) 70.9 Lymph % (Auto) 21.5 L [place] % (Auto) 6.5 Eos % (Auto) 0.5 L Baso % (Auto) 0.6 Neut # (Auto) 7400 H Lymph # (Auto) 2300 [place] # (Auto) 700 Eos # (Auto) 100 Baso # (Auto) 100 Sodium Potassium Chloride Carbon Dioxide BUN Creatinine Estimated GFR BUN/Creatinine Ratio Glucose Uric Acid Calcium Total Bilirubin AST ALT Alkaline Phosphatase Lactate Dehydrogenase Total Protein Albumin Globulin Albumin/Globulin Ratio U Random Total Protein 34 H Urine Creatinine 96.1 Protein/Creatinin Ratio 0.35 SARS-CoV-2 (PCR) Negative Blood Type Antibody Screen Assessment and Plan Assessment and Plan Assessment and Plan narrative: ASSESSMENT 1. Intrauterine gestation, gamboa, vertex; anticipate 2. Gestational diabetes, Type A1, well controlled 3. Gestational hypertension 4. Rh Negative status PLAN 1. Admit for delivery 2. See admission orders Time Spent with Patient Total time spent with greater than 50% in coordination of care (as documented) at patient's floor/unit and/or counseling patient:: less than 15 minutes
--- NOTE | 2021-12-10 01:09 | PM.OBPRVD ---
Events: Gestational Diabetes and Induced HTN Labor & Delivery Delivery date: 12/10/21 Intrapartal Events: None Cervical ripening method: per Cervidil protocol Induction method: none Delivery monitor: external FHT and external uterine Route of delivery: Episiotomy description: None L&D Laceration Description: Perineal - 1st Degree Delivery repair: other (None required) Estimated blood loss (mL): 100 Quantitative Blood Loss: 100 Complications: None. Narrative: Following initiation of cervidil for ripening on the evening of 12/09/2021, the patient experienced tachy systole requiring removal of the Cervidil and subsequently experienced spontaneous rupture of membranes demonstrating clear fluid. Active contractions ensued and the patient received an epidural. Patient progressed rapidly to the second stage and after a brief 2nd stage delivered spontaneously over an intact perineum a viable male infant with Apgars of 7 and 9 and a weight of gms. (# oz.). No shoulder dystocia was encountered and there was no cord entanglement noted. Skin to skin contact was initiated immediately and after approximately 90 seconds the umbilical cord was clamped and cut by the father. Cord blood samples were obtained for routine studies. The placenta was removed with gentle cord traction and suprapubic countertraction. The placenta was inspected and found to be intact with or normal insertion of a 3 vessel cord. Inspection of the perineum showed a very superficial first-degree midline perineal laceration which did not require repair. Instrument and sponge counts were correct at the end of the procedure. QBL is 100 cc and both mother and infant are doing well at the completion of the delivery process. [place] Baby 1: Infant gender: Male Presentation: vertex Position: Left Occiput Anterior Placenta delivery description: Spontaneous and Expressed Cord Vessel Description: 3 Vessels score (1 min): 6 score (5 min): 8 weight: 7 lb 7.155 oz Plan for aftercare: Routine care
[2021-12-10] MEDS: LABETALOL 100 MG TABLET 200 MG PO (01:40)
[2021-12-10 06:54] LABS: Add Manual Diff / Slide Review NO; Basophils Absolute Auto 0 /uL (0-100); Basophils Percent Auto 0.2 % (0-2); Eosinophils Absolute Auto 0 /uL (0-450); Hematocrit 32.5 % (36-46); Hemoglobin 11.1 g/dL (12.0-16.0); Lymphocytes Absolute Auto 2100 /uL (1100-4500); Lymphocytes Percent Auto 12.3 % (25-40); Mean Corpuscular HGB Conc 34.2 % (30-36); Mean Corpuscular Hemoglobin 27.2 PG (26-34); Mean Corpuscular Volume 79.5 fL (80-100); Monocytes Absolute Auto 1000 /uL (0-900); Monocytes Percent Auto 5.9 % (3-14); Neutrophils Absolute Auto 13800 /uL (1500-7000); Neutrophils Percent Auto 81.6 % (50-75); Platelet Count 332 X10^3/uL (150-400); Red Blood Cell Count 4.09 X10^6/uL (4.0-5.2); Red Cell Distribution Width 13.4 % (11.6-14.8); White Blood Cell Count 16.9 X10^3/uL (4.5-11.0)
[2021-12-10 07:26] LABS: Alanine Aminotransferase 35 IU/L (<35); Albumin Globulin Ratio 1.1 (1.0-2.8); Alkaline Phosphatase 119 U/L (38-126); Aspartate Aminotransferase 40 IU/L (14-36); BUN Creatinine Ratio 22.4 (6-22); Bilirubin Total 0.7 mg/dL (0.2-1.3); Blood Urea Nitrogen 13 mg/dL (7-17); Calcium 8.8 mg/dL (8.4-10.2); Carbon Dioxide 19 mmol/L (22-32); Chloride 105 mmol/L (98-107); Estimated Glomerular Filt Rate > 60 mL/min (>60); Globulin 2.8 g/dL (1.7-4.1); Glucose 95 mg/dL (70-100); HEMOLYSIS < 15 (0-50); Potassium 4.6 mmol/L (3.4-5.1); Sodium 132 mmol/L (137-145); Total Protein 5.8 g/dL (6.3-8.2)
[2021-12-10] MEDS: IBUPROFEN 600 MG TABLET PO ×3 (08:01→21:40)
[2021-12-10] MEDS: LABETALOL 100 MG TABLET PO (09:12)
[2021-12-10] MEDS: DOCUSATE 100 MG CAPSULE PO (09:12)
[2021-12-11] MEDS: IBUPROFEN 600 MG TABLET PO ×2 (05:59→13:25)
[2021-12-11] MEDS: FLUoxetine 20 MG CAPSULE PO (08:49)
[2021-12-11 08:50] VITALS: BP 124/84; PULSE 85
[2021-12-11] MEDS: DOCUSATE 100 MG CAPSULE PO (08:50)
[2021-12-11] MEDS: LABETALOL 100 MG TABLET PO (08:50)
--- NOTE | 2021-12-11 08:56 | P.DS_ITS ---
Discharge Providers Provider Date of admission: 12/09/21 18:01 Discharge Date: 12/11/21 Primary care physician: Francesco Riggins PA-C Consults: 12/11/21 01:05 Consult to Marine Equipment Design Engineer Routine Comment: Discharge provider: Everardo Mendoza MD Summary Hospital Course Date Patient Seen: 12/11/21 Time Patient Seen: 08:10 Diagnoses: Intrauterine gestation, Alcantar, vertex, 38+ 3 weeks gestational age, delivered Gestational hypertension Gestational diabetes, diet controlled (A1) Rh-negative status Hospital Course: Patient was admitted on the evening of 12/09/2021 for cervical ripening with Cervidil. The patient experienced tachysystole shortly after insertion of the Cervidil and the Cervidil was removed but contractions continued unabated and she experienced spontaneous rupture membranes shortly thereafter. She progressed rapidly in labor and early on the morning of 12/10/2021 delivered by spontaneous vaginal a viable male with Apgars 6/8 and weight of 7 pounds 2 oz. she sustained a very superficial first-degree perineal laceration which did not require repair. Following delivery the patient has done extremely well with prompt return of bowel and bladder function, she is ambulating independently, tolerating a regular diet, and her pain is well controlled with oral medications. Blood pressures have remained in the normal range with a maximum elevation of 143/80 for early on the morning of 12/10/2021 but her blood pressure discharge is 132/82 on labetalol 100 mg p.o. q.d.. Or she will be discharged at this time to home in an afebrile normotensive condition after counseling regarding precautionary symptoms, limitations of activity, medications, and plans for follow-up. She will continue her labetalol 100 mg p.o. q.d. was prescribed ibuprofen 600 mg p.o. q.6 hours as needed pain a discharge. She will be seen in 6 weeks for follow-up at which time her blood pressure will be reassessed and most likely the labetalol discontinued. Due to her gestational diabetes, she will also have a 75 g 2 hour GTT performed after her 6 week visit to rule out previously undiagnosed type 2 diabetes. The patient is me know decision regarding contraception but that will be discussed at her 6 week visit as well. Peripartum Data Infant Delivery Method: Natural Vaginal Laceration Description: Perineal - 1st Degree Episiotomy description: None Procedures: Spontaneous vaginal delivery Continuous lumbar epidural placement in labor complications: none [place] 1: Gender: Male Disposition of : home Status at Discharge Cognitive/behavioral status at discharge: oriented Functional status at discharge: independent ambulation Overall status at discharge: patient is progressing back to baseline Time Spent with Patient Time attestation: Total time spent providing and/or coordinating discharge services: Objective Labs Result Diagrams: 12/10/21 06:30 12/10/21 06:30 Exam Vital Signs (past 8 hours): - 12/11/21 08:50 Pulse Rate 85 Blood Pressure 124/84 Const General: cooperative and comfortable Nutritional Appearance: average body habitus Orientation: alert and oriented x3 HENMT Head: normal to inspection, atraumatic and abrasion Ears: hearing grossly normal bilaterally Face and sinus: face symmetric Eyes General: appearance normal, both eyes and all related structures Conjunctivae: conjunctivae normal Sclera: sclerae normal EOM: EOM intact bilaterally Neck Neck: normal visual inspection Resp Effort & Inspection: normal respiratory effort and able to speak in complete sentences Auscultation: clear to auscultation bilaterally Cardio Rate: regular rate Rhythm: regular rhythm Heart Sounds: S1 normal, S2 normal and no murmurs GI Inspection: normal to inspection Palpation: soft, no hepatosplenomegaly, mass (Firm, minimally tender fundus U-6) and tender (Minimal) External Female Exam: other (Minimal lochia) Extrem General: no calf tenderness Psych Appearance: grossly normal Mental Status: mental status grossly normal Speech and Movement: speech and movement normal Mood: congruent mood Affect: normal affect Attitude: cooperative Thought Process: normal Thought Content: normal Judgment: judgment good Discharge Plan Discharge Plan Patient Disposition: Home Provider Discharge Comment: Please review the written instructions you received when you were discharged from the hospital. Your follow-up appointment will be scheduled for 6 weeks after delivery and I look forward to seeing you then. If in the meanwhile however you have any issues, concerns, or problems, please contact me either through the office phone at [phone] or via the patient portal. Discharge orders & Medications Prescriptions: New ibuprofen 600 mg Tablet 600 mg PO Q6HR PRN (Reason: Pain, Mild (1-3)) Qty: 60 2RF Continued (DME) blood-glucose meter Misc See Rx Instructions .MEDSUPPLY Qty: 1 0RF Rx Instructions: As directed (DME) FreeStyle Lite Strips Strip See Rx Instructions .ROUTE .COMPLEX Qty: 300 2RF Dose Instruction: USE TO CHECK BLOOD SUGAR FOUR TIMES DAILY DIRECTED AND RECORD ON LOG SHEET Rx Instructions: USE TO CHECK BLOOD SUGAR FOUR TIMES DAILY DIRECTED AND RECORD ON LOG SHEET labetalol 100 mg tablet 100 mg PO DAILY Qty: 90 2RF Rx Instructions: Take once daily. prenat.vits,taiwo,yia-vvej-shyat Tablet 1 tab PO DAILY fluoxetine 20 mg capsule 20 mg PO DAILY Follow up/Referrals: Francesco Riggins PA-C [Primary Care Provider] - Discharge Health Status Multidrug resistant organism: No MDRO Diet/Activity/Treatments Diet: Diet as Tolerated Activity: As tolerated Other treatments: Cals-ynj-frybmuo Tylenol may be taken in addition to ibuprofen for pain/cramping Skin/Wound/Dressing Care Report to your healthcare provider any signs of infection, such as:: chills, fever, increased pain and unusual drainage Dressing: N/A Visit Report/Discharge Packet Instructions: DI for Labor and Delivery, Vaginal Discharge Data Primary Care Provider: Francesco Riggins
[2021-12-11] MEDS: MEASLES,MUMPS,RUBELLA VACC/PF 0.5 ML VIAL SUBCUT (13:26)
[2021-12-11 13:33] VITALS: BP 134/84; PULSE 99; RESP 20; TEMP 36.7
== END 2021-12-11 14:28 | disposition home or self-care (01) | DRG 805 ==
PROVIDERS: Obstetrics & Gynecology; Admitting Provider Obstetrics & Gynecology; PCP Physician Assistant; Referring Provider Obstetrics & Gynecology; Visit Provider Obstetrics & Gynecology
DX: O24.420 Gestational diabetes mellitus in childbirth, diet controlled (principal); O99.42 Diseases of the circulatory system complicating childbirth; Z37.0 Single live birth; O13.4 Gestational [pregnancy-induced] hypertension without significant proteinuria, complicating childbirth; O76 Abnormality in fetal heart rate and rhythm complicating labor and delivery; Z3A.38 38 weeks gestation of pregnancy; Z67.11 Type A blood, Rh negative; Z20.822 Contact with and (suspected) exposure to COVID-19
CPT/HCPCS: 01967; 36415; 59050; 59200; 59400; 59409; 80053; 82570; 83615; 84156; 84550; 85025; 86850; 86900; 86901; 87635; C9803; G0379

== ENCOUNTER → 2023-08-30 10:46 | Outpatient (CLI) | payer OTHER, SELFPAY ==
--- NOTE | 2023-08-30 10:47 | DI.US.S_ITS ---
PROCEDURE: US OB <= 14 WEEKS FETUS INDICATIONS: dating and viability, unclear dating d/t irregular menses OUTSIDE/PRIOR DATING DATA: Last menstrual period (LMP): Unknown. LMP-based estimated date of delivery (ZULEMA): Unknown First dating scan (date and location): 08/30/2023 Estimated date of delivery (ZULEMA) from first dating scan: 04/14/2024 The calculations are made using the working ZULEMA of 04/14/2024. TECHNIQUE: Real-time scanning was performed of the fetus and maternal pelvic organs, with image documentation. Endovaginal scanning was also performed to better visualize the fetus and maternal ovaries. COMPARISON: [facility], , OB <= 14 WEEKS FETUS, 06/27/2021, 9:14. FINDINGS: Embryo: [place]-rump length 1.3 cm corresponds with a 7 week 3 day gestation Heart rate: 155 beats per minute Maternal organs: Ovaries simple left ovarian cyst 2.3 x 1.7 x 2.4 cm. IMPRESSION: Single live intrauterine corresponds with a 7 week 3 day gestation Approved by: Jm Jones M.D. on 08/30/2023 at 13:42
== END ==
LOC: US 10:46
PROVIDERS: PCP Physician Assistant; Referring Provider Obstetrics & Gynecology; Visit Provider Obstetrics & Gynecology
DX: Z34.81 Encounter for supervision of other normal pregnancy, first trimester (principal); Z3A.01 Less than 8 weeks gestation of pregnancy
CPT/HCPCS: 76801; 76817

== ENCOUNTER → 2023-10-02 10:37 | Outpatient (CLI) | payer OTHER, SELFPAY ==
[2023-10-02 20:30] LABS: Urine N gonorrhoeae NOT DETECTED
[2023-10-02 20:37] LABS: Urine Chlamydia NOT DETECTED
== END ==
PROVIDERS: PCP Physician Assistant; Visit Provider Obstetrics & Gynecology
DX: Z34.81 Encounter for supervision of other normal pregnancy, first trimester (principal); Z11.3 Encounter for screening for infections with a predominantly sexual mode of transmission
CPT/HCPCS: 87491; 87591

== ENCOUNTER → 2023-10-02 10:41 | Outpatient (CLI) | payer OTHER, SELFPAY ==
[2023-10-02 12:31] LABS: Add Manual Diff / Slide Review NO; Basophils Absolute Auto 0 /uL (0-100); Basophils Percent Auto 0.3 % (0-2); Eosinophils Absolute Auto 0 /uL (0-450); Eosinophils Percent Auto 0.4 % (2-4); Hematocrit 39.3 % (36-46); Hemoglobin 13.4 g/dL (12.0-16.0); Lymphocytes Absolute Auto 2100 /uL (1100-4500); Lymphocytes Percent Auto 20.5 % (25-40); Mean Corpuscular Hemoglobin 27.7 PG (26-34); Mean Corpuscular Volume 81.5 fL (80-100); Monocytes Absolute Auto 500 /uL (0-900); Neutrophils Absolute Auto 7600 /uL (1500-7000); Neutrophils Percent Auto 73.8 % (50-75); Platelet Count 369 X10^3/uL (150-400); Red Blood Cell Count 4.83 X10^6/uL (4.0-5.2); Red Cell Distribution Width 14.7 % (11.6-14.8); White Blood Cell Count 10.2 X10^3/uL (4.5-11.0)
[2023-10-02 12:40] LABS: Hemoglobin A1C% w Est Avg Glu 4.6 % (4.0-6.0)
[2023-10-02 12:57] LABS: Alanine Aminotransferase 68 IU/L (<35); Aspartate Aminotransferase 47 IU/L (14-36); BUN Creatinine Ratio 15.4 (6-22); Blood Urea Nitrogen 8 mg/dL (7-17); Estimated Glomerular Filt Rate > 60 mL/min (>60); Uric Acid 5.1 mg/dL (2.5-6.2)
[2023-10-02 17:49] LABS: Hepatitis B Surface Antigen NEGATIVE s/c (NEGATIVE)
[2023-10-02 18:06] LABS: HIV 1 & 2 Ab/Ag 4th Gen Combo NEGATIVE (NEGATIVE); Hep C Virus Ab w/Reflex Quant NEGATIVE s/c (NEGATIVE)
[2023-10-03 08:11] LABS: RPR Screen Non Reactive (Non Reactive)
[2023-10-03 09:56] LABS: Varicella IgG Antibody 225 index (Immune >165)
== END ==
LOC: LAB 10:42
PROVIDERS: PCP Physician Assistant; Referring Provider Obstetrics & Gynecology; Visit Provider Obstetrics & Gynecology
DX: O09.299 Supervision of pregnancy with other poor reproductive or obstetric history, unspecified trimester (principal); Z86.32 Personal history of gestational diabetes; Z11.3 Encounter for screening for infections with a predominantly sexual mode of transmission
CPT/HCPCS: 36415; 80055; 82565; 83036; 84450; 84460; 84520; 84550; 86787; 86803; 86850; 86900; 86901; 87086; 87389; 87491; 87591

== ENCOUNTER → 2023-11-28 10:07 | Outpatient (CLI) | payer OTHER, SELFPAY ==
--- NOTE | 2023-11-28 10:09 | DI.US.S_ITS ---
PROCEDURE: US OB >= 14 WEEKS FETUS INDICATIONS: Anatomy Scan OUTSIDE/PRIOR DATING DATA: Last menstrual period (LMP): Unknown. LMP-based estimated date of delivery (ZULEMA): Not calculated. First dating scan (date and location): August 30, 2023. Estimated date of delivery (ZULEMA) from first dating scan: April 14, 2024. The calculations are made using the ultrasound ZULEMA of April 14, 2024. TECHNIQUE: Real-time scanning was performed of the fetus, with image documentation and biometric measurements. Endovaginal scanning: Not performed COMPARISON: [facility], , US OB >= 14 WEEKS FETUS, 12/05/2021, 14:16. FINDINGS: General: A single living intrauterine gestation is present. Presentation: Transverse. Placenta: Placental position is posterior with possible placenta previa. Amniotic fluid index: 12.3 cm, normal range is 5-24 cm. Single deepest vertical pocket is 4.0 cm. heart rate: 140 beats per minute. Maternal cervical canal: 4.3 cm long. Normal lower limit is 2.5 cm. biometrics: Biparietal diameter: 5.0 cm, 21 weeks and 0 days Head circumference: 18.1 cm, 20 weeks and 3 days Abdominal circumference: 16.6 cm, 21 weeks and 4 days Femur length: 3.2 cm, 19 weeks and 6 days Clinically estimated gestational age: 20 weeks and 2 days by initial ultrasound Composite gestational age from present scan: 20 weeks and 5 days Estimated weight and percentile: 379 g which correlates with the 75th percentile for gestational age Anatomic survey: Neuro: Ventricles are non-dilated at less than 10 mm. Cisterna magna is normal at 3-11 mm. Cerebellum is normal in size and morphology. Nuchal skin fold: Normal at less than 6 mm between 14-21 weeks gestational age. Face: Nose and lips, facial profile are normal. Spine: No evidence for spina bifida. Heart: 4-chambered heart is present, with normal ventricular outflow tracts. Diaphragm: Diaphragm is intact. Stomach: Left-sided stomach is present. Kidneys: No hydronephrosis. Normal is less than 5 mm in 2nd trimester, less than 7 mm in 3rd trimester. Cord: 3-vessel cord has orthotopic insertion. Bladder: Normal in size. Extremities: All 4 extremities identified. IMPRESSION: Single living intrauterine gestation with estimated sonographic gestational age of approximately 20 weeks and 5 days. Normal interval growth has occurred. Estimated weight of approximately 379 g which correlates with the 75th percentile for gestational age. Suggestion of possible placenta previa without abnormal fluid collections. Recommend limited transvaginal ultrasound to confirm findings. Otherwise, unremarkable routine second-trimester anatomy screening survey. We strive to produce accurate, complete, and clear reports of imaging services. To assist us in improving patient care, this report was composed using standard report templates and voice recognition software. Therefore, it may contain abnormal punctuation, insertions and/or omissions. Occasional wrong-word or sound-alike substitutions may occur. Though we review the report and make efforts to correct it, we do recommend that the report be read carefully in proper context to recognize any text inaccuracies. Dictated by: Emre Hernandez M.D. on 11/28/2023 at 15:06 Approved by: Emre Hernandez M.D. on 11/28/2023 at 15:13
== END ==
LOC: US 10:08
PROVIDERS: PCP Physician Assistant; Referring Provider Obstetrics & Gynecology; Visit Provider Obstetrics & Gynecology
DX: Z34.82 Encounter for supervision of other normal pregnancy, second trimester (principal); Z3A.20 20 weeks gestation of pregnancy
CPT/HCPCS: 76811

== ENCOUNTER → 2024-01-03 12:53 | Outpatient (CLI) | payer OTHER, SELFPAY ==
[2024-01-03 14:36] LABS: Hematocrit 33.6 % (36-46); Hemoglobin 11.7 g/dL (12.0-16.0)
[2024-01-03 15:17] LABS: GTT (PREG) 1 Hour PP 50gm Dose 120 mg/dL (76-139)
== END ==
PROVIDERS: PCP Physician Assistant; Referring Provider Obstetrics & Gynecology; Visit Provider Obstetrics & Gynecology
DX: O26.899 Other specified pregnancy related conditions, unspecified trimester (principal); Z3A.26 26 weeks gestation of pregnancy; Z67.91 Unspecified blood type, Rh negative
CPT/HCPCS: 36415; 82950; 85014; 85018; 86850

== ENCOUNTER 2024-01-04 10:47 | Observation (INO) | payer OTHER, SELFPAY ==
[2024-01-04 11:32] LABS: Add Manual Diff / Slide Review NO; Basophils Absolute Auto 0 /uL (0-100); Basophils Percent Auto 0.4 % (0-2); Eosinophils Absolute Auto 100 /uL (0-450); Eosinophils Percent Auto 0.8 % (2-4); Hematocrit 34.1 % (36-46); Hemoglobin 11.6 g/dL (12.0-16.0); Lymphocytes Absolute Auto 1500 /uL (1100-4500); Lymphocytes Percent Auto 14.7 % (25-40); Mean Corpuscular Hemoglobin 28.4 PG (26-34); Mean Corpuscular Volume 83.3 fL (80-100); Monocytes Absolute Auto 400 /uL (0-900); Neutrophils Absolute Auto 8000 /uL (1500-7000); Neutrophils Percent Auto 80.1 % (50-75); Platelet Count 363 X10^3/uL (150-400); Red Blood Cell Count 4.09 X10^6/uL (4.0-5.2); Red Cell Distribution Width 13.8 % (11.6-14.8)
[2024-01-04 11:50] LABS: Aspartate Aminotransferase 33 IU/L (14-36); BUN Creatinine Ratio 11.1 (6-22); Blood Urea Nitrogen 5 mg/dL (7-17); Estimated Glomerular Filt Rate > 60 mL/min (>60); Uric Acid 4.3 mg/dL (2.5-6.2)
[2024-01-04 11:52] LABS: Protein (Total) Urine Random 11 mg/dL (0-12); Protein Creatinine Ratio Urine 0.12 GRAM/24H
--- NOTE | 2024-01-04 11:56 | PM.OBTRLD ---
Visit Information Visit Information Date of evaluation: 01/04/24 On-call OB Provider: Carolina Walker Comments/Additional reasons for admission: 28yo at 25+4wks called today with complaint of headache and elevated blood pressure at home to 152/97. Otherwise denies vision changes, right upper quadrant pain, chest pain, or shortness of breath. Vital Signs Vital Signs: BP 131/69, 129/71, 137/74 [facility] Medical History (Updated 12/03/23 @ 19:25 by Everardo Mendoza MD) History of pre-eclampsia Pneumonia (~2006) Hypertension Gestational diabetes Depression (~2010) Irregular menstrual cycle (~2016) Hemorrhoid (~2018) Anxiety (~2012) depression Preeclampsia Gestational diabetes mellitus (GDM) affecting first Ovarian cyst (~2016) Polycystic ovarian syndrome Surgical History (Updated 08/23/23 @ 13:06 by Jammie Perez RN) Anesthesia History of dental surgery (~2004) Family History (Updated 08/23/23 @ 13:14 by Jammie Perez RN) Grandfather Cancer History of heart disease Hypertension Grandmother Cervical cancer Lung cancer Hypertension Hyperlipidemia Depression Anxiety Grandfather Lung cancer Father Depression Anxiety Mother Mental health problem Lupus Romulo's disease (erythromelalgia) Degenerative disc disease, lumbar Tachycardia Dyspnea Chronic pain Raynaud's disease Psoriatic arthritis Insomnia Vertigo Brother Depression Anxiety Sister Depression Anxiety Sister Depression Anxiety Grandmother Dementia Uncle Hemophilia Social History marital status: number of children: 2 household members: spouse and children lives independently: Yes caregiver/support person: Yes housing: [facility] pets and animals: Yes (2 dogs, cat) education level: college (some college) occupational status: unemployed current occupational exposures/hazards: No special yoav needs: No travel history: over 6 months ago seatbelt use: always water heater temp set < 120 deg: Yes working smoke detector in home: Yes fire extinguisher in home: No carbon monox detector in home: Yes firearms in home: No do you feel safe at home: Yes Smoking Status: Never smoker second hand exposure: No alcohol intake: former (rarely when not ) substance use type: does not use during the past year weight has: remained stable well-balanced diet: about half the time daily servings fruits/ve-4 caffeine: Yes (rarely) eating out: 1-3 times/week Type(s) of exercise: none frequency: 1-2 times per week Objective Labs 01/04/24 11:25 01/04/24 11:25 Labs: Laboratory Results - last 24 hr 01/04/24 01/04/24 10:55 11:25 WBC 10.0 RBC 4.09 Hgb 11.6 L Hct 34.1 L MCV 83.3 MCH 28.4 MCHC 34.0 RDW 13.8 Plt Count 363 Neut % (Auto) 80.1 H Lymph % (Auto) 14.7 L [place] % (Auto) 4.0 Eos % (Auto) 0.8 L Baso % (Auto) 0.4 Neut # (Auto) 8000 H Lymph # (Auto) 1500 [place] # (Auto) 400 Eos # (Auto) 100 Baso # (Auto) 0 BUN 5 L Creatinine 0.45 L Estimated GFR > 60 BUN/Creatinine Ratio 11.1 Uric Acid 4.3 AST 33 U Random Total Protein 11 Urine Creatinine 85.80 Protein/Creatinin Ratio 0.12 Evaluation Evaluation Baseline heart rate: 130 Variability: Moderate (11-25) monitor accelerations: Present (10x10) Monitor Decelerations: Absent Contraction Frequency (minutes): 0 Category of Tracing: Appropriate for gestational age Diagnosis, Plan/Disposition Final Diagnosis (1) History of pre-eclampsia: Status: Acute Plan/Disposition Plan: 28yo at 25+4wks presented to triage for r/o pre-eclampsia. Blood pressures within normal range, lab values within normal other than known elevated AST. -pt discharged to home with routine precautions OB Disposition: home
== END 2024-01-04 12:11 | disposition home or self-care (01) ==
LOC: LABOR 10:49
PROVIDERS: Admitting Provider Student in an Organized Health Care Education/Training Program; PCP Physician Assistant; Referring Provider Student in an Organized Health Care Education/Training Program; Visit Provider Student in an Organized Health Care Education/Training Program
DX: O26.892 Other specified pregnancy related conditions, second trimester (principal); R51.9 Headache, unspecified; R03.0 Elevated blood-pressure reading, without diagnosis of hypertension; Z3A.25 25 weeks gestation of pregnancy; Z87.59 Personal history of other complications of pregnancy, childbirth and the puerperium
CPT/HCPCS: 36415; 59025; 82570; 84156; 84450; 84550; 85025; G0378; G0379

== ENCOUNTER → 2024-01-24 09:28 | Outpatient (CLI) | payer OTHER, SELFPAY ==
[2024-01-24 11:29] LABS: GTT (PREG) 1 Hour PP 50gm Dose 157 mg/dL (76-139)
== END ==
PROVIDERS: PCP Physician Assistant; Referring Provider Obstetrics & Gynecology; Visit Provider Obstetrics & Gynecology
DX: Z34.83 Encounter for supervision of other normal pregnancy, third trimester (principal); Z3A.28 28 weeks gestation of pregnancy
CPT/HCPCS: 36415; 82950

== ENCOUNTER → 2024-01-30 09:43 | Outpatient (CLI) | payer OTHER, SELFPAY ==
--- NOTE | 2024-01-30 10:00 | DI.US.S_ITS ---
PROCEDURE: US OB FOLLOW UP INDICATIONS: re-evaluate placental position; evaluate growth OUTSIDE/PRIOR DATING DATA: Last menstrual period (LMP): Unknown. LMP-based estimated date of delivery (ZULEMA): Not available First dating scan (date and location): 08/30/23 Estimated date of delivery (ZULEMA) from first dating scan: 04/14/24 TECHNIQUE: Real-time scanning was performed of the fetus, with image documentation. Endovaginal scanning: Performed for cervical detail COMPARISON: None. FINDINGS: A single living intrauterine gestation is present. Presentation: Vertex. Placenta: Placental position is posterior and low lying. Transvaginal imaging demonstrates the edge 0.6 cm away from the internal cervical os. There is no overlying vascularity. Amniotic fluid index: 16.2 cm, normal range is 5-24 cm. Single deepest vertical pocket is 8.4 cm. heart rate: 144 beats per minute. Maternal cervical canal: Closed and 4.5 cm long. Normal lower limit is 2.5 cm. Biparietal diameter 7.2 cm, 29 weeks 0 days Head circumference 25.6 cm, 27 weeks six days Abdominal circumference 26.0 cm, 30 weeks one day Femur length 5.5 cm, 29 weeks 0 days Composite gestational age 29 weeks 0 days Estimated weight 1399 g, 43rd percentile Clinically estimated gestational age: 29 weeks two days IMPRESSION: Single living intrauterine with estimated weight at the 43rd percentile. Composite gestational age is two days behind the expected gestational age. Posterior low lying placenta. Normal amniotic fluid volume. Dictated by: Marilynn Cespedes M.D. on 01/30/2024 at 20:48 Approved by: Marilynn Cespedes M.D. on 01/30/2024 at 20:52
== END ==
PROVIDERS: PCP Physician Assistant; Referring Provider Student in an Organized Health Care Education/Training Program; Visit Provider Student in an Organized Health Care Education/Training Program
DX: O44.03 Complete placenta previa NOS or without hemorrhage, third trimester (principal); Z3A.29 29 weeks gestation of pregnancy
CPT/HCPCS: 76816

== ENCOUNTER → 2024-02-11 07:44 | Outpatient (CLI) | payer OTHER, SELFPAY ==
[2024-02-11 08:31] LABS: Glucose Fasting Gestational 95 mg/dL (76-95)
[2024-02-11 10:22] LABS: Glucose 1 Hour Gest 173 mg/dL (76-180)
[2024-02-11 10:43] LABS: Glucose 2 Hour Gest 149 mg/dL (76-155)
[2024-02-11 11:00] LABS: Glucose Tol Interp,Gestational INTERPRETATION
[2024-02-11 12:56] LABS: Glucose 3 Hour Gest 133 mg/dL (76-140)
== END ==
PROVIDERS: PCP Physician Assistant; Referring Provider Obstetrics & Gynecology; Visit Provider Obstetrics & Gynecology
DX: O99.810 Abnormal glucose complicating pregnancy (principal)
CPT/HCPCS: 36415; 82951; 82952

== ENCOUNTER 2024-02-19 10:15 | Inpatient (IN) | payer OTHER, SELFPAY ==
[2024-02-19 10:42] LABS: Add Manual Diff / Slide Review NO; Basophils Absolute Auto 100 /uL (0-100); Basophils Percent Auto 0.6 % (0-2); Eosinophils Absolute Auto 100 /uL (0-450); Eosinophils Percent Auto 1.2 % (2-4); Hematocrit 35.8 % (36-46); Hemoglobin 12.5 g/dL (12.0-16.0); Lymphocytes Absolute Auto 2200 /uL (1100-4500); Lymphocytes Percent Auto 22.2 % (25-40); Mean Corpuscular Hemoglobin 28.7 PG (26-34); Monocytes Absolute Auto 400 /uL (0-900); Monocytes Percent Auto 3.9 % (3-14); Neutrophils Absolute Auto 7100 /uL (1500-7000); Neutrophils Percent Auto 72.1 % (50-75); Platelet Count 368 X10^3/uL (150-400); Red Blood Cell Count 4.36 X10^6/uL (4.0-5.2); Red Cell Distribution Width 14.4 % (11.6-14.8); White Blood Cell Count 9.8 X10^3/uL (4.5-11.0)
[2024-02-19 10:55] LABS: Alanine Aminotransferase 182 IU/L (<35); Albumin 3.8 g/dL (3.5-5.0); Albumin Globulin Ratio 1.1 (1.0-2.8); Alkaline Phosphatase 90 U/L (38-126); Aspartate Aminotransferase 103 IU/L (14-36); BUN Creatinine Ratio 12.2 (6-22); Blood Urea Nitrogen 6 mg/dL (7-17); Calcium 9.3 mg/dL (8.4-10.2); Carbon Dioxide 16 mmol/L (22-32); Chloride 107 mmol/L (98-107); Estimated Glomerular Filt Rate > 60 mL/min (>60); Globulin 3.5 g/dL (1.7-4.1); Glucose 142 mg/dL (70-100); HEMOLYSIS < 15 (0-50); Potassium 3.6 mmol/L (3.4-5.1); Sodium 134 mmol/L (137-145); Total Protein 7.3 g/dL (6.3-8.2)
[2024-02-19 11:01] LABS: Creatinine Urine Random 186.84 mg/dL; Protein (Total) Urine Random 29 mg/dL (0-12); Protein Creatinine Ratio Urine 0.15 GRAM/24H
--- NOTE | 2024-02-19 13:24 | PM.OBHP.IH.1 ---
OB HPI Date/Time Date of admission: 02/19/24 Date Patient Seen: 02/19/24 Time Patient Seen: 13:24 History of Present Condition Chief complaint: NST ZULEMA Calculator Estimated Delivery Date Method Current WG Current Estimate 04/14/24 Ultrasound #1 32w 2d Other Estimates 03/06/24 LMP (Certain) 37w 6d Estimated Gestational Age (weeks): 32+1 : 3 Para: 2 Narrative: Patient is a 29-year-old 3 para 2 who presented for a routine visit at 32+ 1 weeks gestation, based on a 7 week ultrasound. She was found to have elevated blood pressure to the 140s over 90s. She was sent to the center for a nonstress test and preeclampsia labs. Her protein is 290 mg per 24 hours. Her liver function tests which were baseline in the 40s are now 100/182 respectively. No headache or blurred vision. Good movement. No leakage of fluid or vaginal bleeding. No contractions. is complicated by gestational diabetes, diet controlled. She also has had some white coat hypertension. She has a history of preeclampsia and gestational diabetes in previous pregnancies. Her baseline hemoglobin A1c was 4.6. care: good care, initiated at week #, number of visits and pounds weight gain Dating criteria OB: based on 1st trimester US only Ultrasounds: normal 1st trimester US and normal mid trimester US (Low-lying placenta. Most recent 1 shows placenta 6 mm from the cervical os.) Obstetrical complications: gestational diabetes (Diet controlled) and gestational hypertension Medical complications OB: none Preadmission Labs Last OB Lab Results: Blood Type A Negative 10/02/23 11:10 Antibody Screen Negative 01/03/24 12:56 Hct 35.4 % (36-46) L 02/20/24 05:00 Hgb 12.1 g/dL (12.0-16.0) 02/20/24 05:00 Hep Bs Antigen Negative s/c (NEGATIVE) 02/19/24 10:30 Hepatitis C Antibody Negative s/c (NEGATIVE) 02/19/24 10:30 Rubella Antibody 37.0 IU/mL (>15) 10/02/23 11:10 VZV IgG Antibody 225 index (Immune >165) 10/02/23 11:10 Glucose 1 Hr 50 gm 157 mg/dL (76-139) H 01/24/24 10:44 Hemoglobin A1c 4.7 % (4.0-6.0) 02/19/24 10:30 Group B Strep (PCR) Neg for grp b strep 02/19/24 13:30 -: Chlamydia screen: negative, Gonorrhea screen: negative and Urine: negative -: PAP smear: Normal External Labs -: Urine: negative Prior (ies) Past Pregnancies Del. Date GA/Weeks Labor Lgth Wt Sex Route Outcome Anesthesia Place Delv Breastfeed Preg Comp Name 06/07/19 37 19 6 lb 10 oz Male vaginal live - epidural [facility] short period delivery pre-eclampsia induced hyper- other [place] 12/10/21 38 7 7 lb 4 oz Male vaginal live - full term epidural [facility] 2 months gestational diabetes induced hyper- [place] Delivery Date: 06/07/19 Last Updated by: Kamila Vazquez RDulce Induced 37wks 2 days preeclampsia, difficulty putting epidural in then rapid drop in BP Evaluation Evaluation Baseline heart rate: 135 Variability: Moderate (11-25) monitor accelerations: Present Monitor Decelerations: Absent Status: Category l [facility] Medical History (Updated 01/31/24 @ 11:09 by Everardo Mendoza MD) History of pre-eclampsia Pneumonia (~2006) Hypertension Gestational diabetes Depression (~2010) Irregular menstrual cycle (~2016) Hemorrhoid (~2018) Anxiety (~2012) depression Preeclampsia Gestational diabetes mellitus (GDM) affecting first Ovarian cyst (~2016) Polycystic ovarian syndrome Surgical History (Updated 08/23/23 @ 13:06 by Jammie Perez RN) Anesthesia History of dental surgery (~2004) Family History (Updated 08/23/23 @ 13:14 by Jammie Perez RN) Grandfather Cancer History of heart disease Hypertension Grandmother Cervical cancer Lung cancer Hypertension Hyperlipidemia Depression Anxiety Grandfather Lung cancer Father Depression Anxiety Mother Mental health problem Lupus Romulo's disease (erythromelalgia) Degenerative disc disease, lumbar Tachycardia Dyspnea Chronic pain Raynaud's disease Psoriatic arthritis Insomnia Vertigo Brother Depression Anxiety Sister Depression Anxiety Sister Depression Anxiety Grandmother Dementia Uncle Hemophilia Social History marital status: number of children: 2 household members: spouse and children lives independently: Yes caregiver/support person: Yes housing: condominium ([facility]) pets and animals: Yes (2 dogs, cat) education level: college (some college) occupational status: unemployed current occupational exposures/hazards: No special yoav needs: No travel history: over 6 months ago seatbelt use: always water heater temp set < 120 deg: Yes working smoke detector in home: Yes fire extinguisher in home: No carbon monox detector in home: Yes firearms in home: No do you feel safe at home: Yes Smoking Status: Never smoker second hand exposure: No alcohol intake: former (rarely when not ) substance use type: does not use during the past year weight has: remained stable well-balanced diet: about half the time daily servings fruits/ve-4 caffeine: Yes (rarely) eating out: 1-3 times/week Type(s) of exercise: none frequency: 1-2 times per week Meds Home Medications and Allergies Home Medications Medication Instructions Recorded Confirmed Type fluoxetine 20 mg capsule 20 mg PO DAILY 05/15/21 02/19/24 History prenat.vits,taiwo,fem-vqmi-vtjmf 1 tab PO DAILY 05/15/21 02/19/24 History aspirin 81 mg tablet,delayed 81 mg PO DAILY 12/04/23 02/19/24 History release (Adult Low Dose Aspirin) blood sugar diagnostic (Blood #100 ea 02/12/24 02/19/24 Rx Glucose Test strips) blood-glucose meter (Blood Glucose #1 ea 02/12/24 02/19/24 Rx Monitoring kit) lancets #100 ea 02/12/24 02/19/24 Rx Allergies Allergy/AdvReac Type Severity Reaction Status Date / Time No Known Drug Allergies Allergy Verified 02/19/24 09:56 OB Exam Vital signs Blood Pressure: 140/90 Narrative Exam Narrative: Generally: Patient lying supine in bed, no acute distress Lungs: Clear to auscultation bilaterally Cardiovascular: Regular rate and rhythm Fundal height: 34 cm Estimated weight: 1399 gm 43 %ile on 01/30/24 Extremities: Trace edema, 2+ DTRs, no clonus Bedside ultrasound: Vertex presentation. MADISYN 12.88 cm. Objective Labs 02/20/24 05:00 02/20/24 05:00 Labs: Laboratory Results - last 24 hr 02/19/24 10:30 WBC 9.8 RBC 4.36 Hgb 12.5 Hct 35.8 L MCV 82.0 MCH 28.7 MCHC 35.0 RDW 14.4 Plt Count 368 Neut % (Auto) 72.1 Lymph % (Auto) 22.2 L [place] % (Auto) 3.9 Eos % (Auto) 1.2 L Baso % (Auto) 0.6 Neut # (Auto) 7100 H Lymph # (Auto) 2200 [place] # (Auto) 400 Eos # (Auto) 100 Baso # (Auto) 100 Sodium 134 L Potassium 3.6 Chloride 107 Carbon Dioxide 16 L BUN 6 L Creatinine 0.49 L Estimated GFR > 60 BUN/Creatinine Ratio 12.2 Glucose 142 H Calcium 9.3 Total Bilirubin 1.0 AST 103 H ALT 182 H Alkaline Phosphatase 90 Total Protein 7.3 Albumin 3.8 Globulin 3.5 Albumin/Globulin Ratio 1.1 U Random Total Protein 29 H Urine Creatinine 186.84 Protein/Creatinin Ratio 0.15 Assessment and Plan Assessment and Plan Assessment and Plan narrative: Assessment: 29-year-old 3 para 2 at 32-,1/7 weeks gestation by a 7 week ultrasound Suspect superimposed preeclampsia on chronic hypertension versus gestational hypertension History of fatty liver Plan: Discussed with Maternal- Medicine, Dr. Arceo, she recommended ruling out other causes for increase in liver function tests including hep B, hep C, and bile acids. 24 hour urine started Labs ordered for a.m. Fasting and 2 hour postprandial blood sugars Time-Based Coding :: [TOTAL MINUTES] spent with patient and on the chart (including review of chart, obtaining history, exam, reviewing outside data, placing orders, documenting exam and treatment plan, and counseling patient) on [DATE].
[2024-02-19 13:51] VITALS: BP 140/90
[2024-02-19 13:58] LABS: COVID19 -Nasal RAPID Negative (Negative)
[2024-02-19 14:28] LABS: Hemoglobin A1C% w Est Avg Glu 4.7 % (4.0-6.0)
[2024-02-19 14:51] LABS: Strep Grp B PCR NEG for Grp B Strep
[2024-02-19 15:34] LABS: Hep C Virus Ab w/Reflex Quant NEGATIVE s/c (NEGATIVE); Hepatitis B Surface Antigen NEGATIVE s/c (NEGATIVE)
[2024-02-19] MEDS: BETAMETHASONE 30 MG/5 ML MDV 12 MG IM (16:17)
[2024-02-20 06:12] LABS: Add Manual Diff / Slide Review NO; Basophils Absolute Auto 100 /uL (0-100); Basophils Percent Auto 0.5 % (0-2); Eosinophils Absolute Auto 0 /uL (0-450); Eosinophils Percent Auto 0.1 % (2-4); Hematocrit 35.4 % (36-46); Hemoglobin 12.1 g/dL (12.0-16.0); Lymphocytes Absolute Auto 1700 /uL (1100-4500); Lymphocytes Percent Auto 11.5 % (25-40); Mean Corpuscular HGB Conc 34.2 % (30-36); Mean Corpuscular Hemoglobin 28.2 PG (26-34); Mean Corpuscular Volume 82.5 fL (80-100); Monocytes Absolute Auto 400 /uL (0-900); Monocytes Percent Auto 2.5 % (3-14); Neutrophils Absolute Auto 12400 /uL (1500-7000); Neutrophils Percent Auto 85.4 % (50-75); Platelet Count 392 X10^3/uL (150-400); Red Blood Cell Count 4.29 X10^6/uL (4.0-5.2); Red Cell Distribution Width 13.9 % (11.6-14.8); White Blood Cell Count 14.5 X10^3/uL (4.5-11.0)
[2024-02-20 06:25] LABS: Alanine Aminotransferase 238 IU/L (<35); Albumin 3.7 g/dL (3.5-5.0); Albumin Globulin Ratio 1.3 (1.0-2.8); Alkaline Phosphatase 84 U/L (38-126); Aspartate Aminotransferase 140 IU/L (14-36); Bilirubin Total 1.5 mg/dL (0.2-1.3); Bilirubin Unconjugated 1.2 mg/dL (0.0-1.1); Globulin 2.8 g/dL (1.7-4.1); HEMOLYSIS < 15 (0-50); Total Protein 6.5 g/dL (6.3-8.2)
[2024-02-20 06:26] LABS: Alanine Aminotransferase 247 IU/L (<35); Albumin 3.8 g/dL (3.5-5.0); Albumin Globulin Ratio 1.2 (1.0-2.8); Alkaline Phosphatase 90 U/L (38-126); Aspartate Aminotransferase 141 IU/L (14-36); BUN Creatinine Ratio 18.6 (6-22); Bilirubin Total 1.5 mg/dL (0.2-1.3); Blood Urea Nitrogen 8 mg/dL (7-17); Carbon Dioxide 13 mmol/L (22-32); Chloride 106 mmol/L (98-107); Estimated Glomerular Filt Rate > 60 mL/min (>60); Globulin 3.3 g/dL (1.7-4.1); Glucose 117 mg/dL (70-100); HEMOLYSIS < 15 (0-50); Potassium 3.9 mmol/L (3.4-5.1); Sodium 134 mmol/L (137-145); Total Protein 7.1 g/dL (6.3-8.2); Uric Acid 5.3 mg/dL (2.5-6.2)
--- NOTE | 2024-02-20 13:21 | DI.US.S_ITS ---
PROCEDURE: US OB LIMITED INDICATIONS: PRE-ECLAMPSIA OUTSIDE/PRIOR DATING DATA: Last menstrual period (LMP): Unknown. LMP-based estimated date of delivery (ZULEMA): Unknown. First dating scan (date and location): 08/30/2023. Estimated date of delivery (ZULEMA) from first dating scan: 04/14/2024. The calculations are made using the ultrasound ZULEMA of 04/14/2024. TECHNIQUE: Real-time scanning was performed of the fetus, with image documentation. Endovaginal scanning: Not performed COMPARISON: [facility], , OB FOLLOW UP, 01/30/2024, 10:21. FINDINGS: A single living intrauterine gestation is present. Presentation: Vertex. Placenta: Placental position is posterior. Low lying with the placental edge 0.9 cm from the internal cervical os. Amniotic fluid index: 17.5 cm, normal range is 5-24 cm. Single deepest vertical pocket is 5.7 cm. heart rate: 130 beats per minute. Maternal cervical canal: 3.8 cm long. Normal lower limit is 2.5 cm. Biometric measurements: BPD: 7.9 cm, 31 weeks 4 days HC: 29.0 cm, 31 weeks 6 days AC: 28.7 cm, 32 weeks 5 days FL: 6.1 cm, 31 weeks 5 days Clinically estimated gestational age: 32 weeks 2 days Estimated gestational age from today's scan: 32 weeks 0 days. Estimated weight 1929 g, 37th percentile. IMPRESSION: 1. Alcantar living intrauterine at 32 weeks 0 days based on today's ultrasound. Concordant with prior dating. Fetus is in the 37th percentile for weight. Vertex position. 2. Normal amniotic fluid. Low lying placenta is 0.9 cm from the internal cervical os. If clinically indicated this could be further evaluated with transvaginal ultrasound. Dictated by: Hermilo Sales M.D. on 02/20/2024 at 15:43 Approved by: Hermilo Sales M.D. on 02/20/2024 at 15:48
[2024-02-20] MEDS: BETAMETHASONE 30 MG/5 ML MDV 12 MG IM (16:20)
[2024-02-20 17:06] LABS: Collection Time Urine 24 Hours; Protein (Total) Urine Random 17 mg/dL (0-12); Total Protein 24 Hour Urine 315 mg/day (42-225); Total Volume Urine 1850 mL
--- NOTE | 2024-02-20 17:22 | P.PN_ITS ---
Subjective Subjective Date Patient Seen: 02/20/24 Time Patient Seen: 17:22 Interval history: Patient is a 29-year-old 3 para 2 at 32+2 wks gestation admitted yesterday for elevated BP's and liver enzymes. Had repeat labs today and liver enzymes elevated even further AST/ALT 140/238. 24 hour urine with 315mg protein. No headaches or visual changes. No itching. Hep B neg, Hep C neg, bile acids pending BP's 130's/80's. BS's Fasting 102, 2 hr PP 125,122, Covid negative, GBS negative NST's reactive U/S today: Vertex presentation. 1929gm. 37%ile. MADISYN 17.5cm Exam Narrative Exam Narrative: BP 138/87 Gen: Patient lying in bed, on left side, NAD Lungs: CTA bilat FH: 33 cm Ext: 1+ non-pitting edema, 2+ DTR's, no clonus Objective Labs 02/20/24 05:00 02/20/24 05:00 Labs: Laboratory Results - last 24 hr 02/20/24 02/20/24 02/20/24 05:00 06:00 15:40 WBC 14.5 H RBC 4.29 Hgb 12.1 Hct 35.4 L MCV 82.5 MCH 28.2 MCHC 34.2 RDW 13.9 Plt Count 392 Neut % (Auto) 85.4 H Lymph % (Auto) 11.5 L [place] % (Auto) 2.5 L Eos % (Auto) 0.1 L Baso % (Auto) 0.5 Neut # (Auto) 47657 H Lymph # (Auto) 1700 [place] # (Auto) 400 Eos # (Auto) 0 Baso # (Auto) 100 Sodium 134 L Potassium 3.9 Chloride 106 Carbon Dioxide 13 L BUN 8 Creatinine 0.43 L Estimated GFR > 60 BUN/Creatinine Ratio 18.6 Glucose 117 H Uric Acid 5.3 Calcium 9.0 Total Bilirubin 1.5 H 1.5 H Conjugated Bilirubin 0.0 Unconjugated Bilirubin 1.2 H AST 141 H 140 H ALT 247 H 238 H Alkaline Phosphatase 90 84 Total Protein 7.1 6.5 Albumin 3.8 3.7 Globulin 3.3 2.8 Albumin/Globulin Ratio 1.2 1.3 U Random Total Protein Cancelled Urine Collection Time Cancelled Urine Total Volume Cancelled Ur Total Protein 24 Hr Cancelled 02/20/24 16:31 WBC RBC Hgb Hct MCV MCH MCHC RDW Plt Count Neut % (Auto) Lymph % (Auto) [place] % (Auto) Eos % (Auto) Baso % (Auto) Neut # (Auto) Lymph # (Auto) [place] # (Auto) Eos # (Auto) Baso # (Auto) Sodium Potassium Chloride Carbon Dioxide BUN Creatinine Estimated GFR BUN/Creatinine Ratio Glucose Uric Acid Calcium Total Bilirubin Conjugated Bilirubin Unconjugated Bilirubin AST ALT Alkaline Phosphatase Total Protein Albumin Globulin Albumin/Globulin Ratio U Random Total Protein 17 H Urine Collection Time 24 Urine Total Volume 1850 Ur Total Protein 24 Hr 315 H [facility] Medical History (Updated 01/31/24 @ 11:09 by Everardo Mendoza MD) History of pre-eclampsia Pneumonia (~2006) Hypertension Gestational diabetes Depression (~2010) Irregular menstrual cycle (~2016) Hemorrhoid (~2018) Anxiety (~2012) depression Preeclampsia Gestational diabetes mellitus (GDM) affecting first Ovarian cyst (~2016) Polycystic ovarian syndrome Surgical History (Updated 08/23/23 @ 13:06 by Jammie Perez RN) Anesthesia History of dental surgery (~2004) Family History (Updated 08/23/23 @ 13:14 by Jammie Perez RN) Grandfather Cancer History of heart disease Hypertension Grandmother Cervical cancer Lung cancer Hypertension Hyperlipidemia Depression Anxiety Grandfather Lung cancer Father Depression Anxiety Mother Mental health problem Lupus Romulo's disease (erythromelalgia) Degenerative disc disease, lumbar Tachycardia Dyspnea Chronic pain Raynaud's disease Psoriatic arthritis Insomnia Vertigo Brother Depression Anxiety Sister Depression Anxiety Sister Depression Anxiety Grandmother Dementia Uncle Hemophilia Social History marital status: number of children: 2 household members: spouse and children lives independently: Yes caregiver/support person: Yes housing: condominium ([facility]) pets and animals: Yes (2 dogs, cat) education level: college (some college) occupational status: unemployed current occupational exposures/hazards: No special yoav needs: No travel history: over 6 months ago seatbelt use: always water heater temp set < 120 deg: Yes working smoke detector in home: Yes fire extinguisher in home: No carbon monox detector in home: Yes firearms in home: No do you feel safe at home: Yes Smoking Status: Never smoker second hand exposure: No alcohol intake: former (rarely when not ) substance use type: does not use during the past year weight has: remained stable well-balanced diet: about half the time daily servings fruits/ve-4 caffeine: Yes (rarely) eating out: 1-3 times/week Type(s) of exercise: none frequency: 1-2 times per week Assessment & Plan Assessment & Plan narrative: Assessment: 29 year old at 32+2 wks gestation with preeclampsia s/p 2 doses of steroids GDM A1, HgA1c 4.7 on 02/19/24 Anxiety/Depression controlled with Fluoxetine 20mg/day Obesity Plan: Transfer to Records faxed to [phone] Discussed with DONATO Maza Patient to go by private car to [facility], Labor and Delivery Time-Based Coding :: [TOTAL MINUTES] spent with patient and on the chart (including review of chart, obtaining history, exam, reviewing outside data, placing orders, documenting exam and treatment plan, and counseling patient) on [DATE].
[2024-02-20] MEDS: LACTATED RINGERS 1,000 ML 150 ML IV (18:15)
[2024-02-20] MEDS: MAGNESIUM SULFATE 4 GM/100 ML PIGGYBACK IV (18:15)
[2024-02-20] MEDS: MAGNESIUM SULFATE 20 GM/500 ML IV.SOLN IV (19:08)
[2024-02-21 11:36] LABS: Bile Acids 4.6 umol/L (0.0-10.0)
[2024-02-25 10:36] LABS: Albumin 29.5 % (.); M-Spike % Not Observed % (Not Observed); Protein, Total, 24 hr urine 192 mg/24 hr (30-150); Total Urine Protein 10.4 mg/dL (Not Estab.)
== END 2024-02-20 21:26 | disposition short-term general hospital (02) | DRG 833 ==
PROVIDERS: Obstetrics & Gynecology; Admitting Provider Obstetrics & Gynecology; PCP Physician Assistant; Referring Provider Obstetrics & Gynecology; Visit Provider Obstetrics & Gynecology
DX: O24.410 Gestational diabetes mellitus in pregnancy, diet controlled (principal); O13.3 Gestational [pregnancy-induced] hypertension without significant proteinuria, third trimester; Z3A.32 32 weeks gestation of pregnancy; Z37.0 Single live birth; Z11.52 Encounter for screening for COVID-19
CPT/HCPCS: 36415; 59050; 76815; 80053; 80076; 82239; 82570; 83036; 84156; 84166; 84550; 85025; 86803; 87081; 87340; 87635; 87653; 96360; 96372; 99222; 99232; G0379; J0702; J3475